=== PATIENT | female | born 1985 | race Two or more races ===

== ENCOUNTER 2025-03-04 21:15 | Inpatient (IN) | payer MEDICAID, OTHER ==
[~2025-03-04] VITALS: Ht 157.5 cm; Wt 79.3 kg
[2025-03-04 22:34] LABS: Hematocrit 26.0 % (36.0-46.0); Hemoglobin 8.5 g/dL (12.2-16.2); Mean Corpuscular Hemoglobin 29.2 pg (28.0-32.0); Mean Corpuscular Volume 89.3 fL (80.0-100.0); Nucleated Red Blood Cells % 0.0 %
[2025-03-04 22:44] LABS: Alanine Aminotransferase 24 U/L (7-40); Albumin 3.8 g/dL (3.2-4.8); Alkaline Phosphatase 105 U/L (46-116); Anion Gap 15 (5-15); BUN/Creatinine Ratio 9.0 (10.0-20.0); Bilirubin, Total 9.6 mg/dL (0.2-1.0); Blood Urea Nitrogen 7 mg/dL (9-23); Calcium 8.8 mg/dL (8.7-10.4); Carbon Dioxide 18 mmol/L (20-31); Chloride 99 mmol/L (98-107); Glucose 97 mg/dL (74-106); Potassium 3.2 mmol/L (3.5-5.1); Sodium 132 mmol/L (136-145); Total Protein 9.0 g/dL (5.7-8.2)
--- NOTE | 2025-03-04 22:56 | DVH ---
CHEST RADIOGRAPH Indication: sob Technique: Single frontal view of the chest was obtained COMPARISON: None FINDINGS: Lungs and pleural spaces are clear. Cardiac silhouette is enlarged. Bones and soft tissues demonstrat e no significant abnormality. IMPRESSION: Markedly enlarged heart is without overt pulmonary edema.
--- NOTE | 2025-03-04 22:58 | ED.PDOC ---
SOB-HPI HPI Comments HPI: Poor Historian. 39-year-old female recently moved to this area presents to emergency department for at least one-week history of exertional dyspnea. Patient was evaluated proximally 1-2 weeks ago at [facility] for the same thing and she was discharged home in the ER. Patient was discharged home with iron pills for ane emerson and water pills. Patient states compliance with her medications however she still feels short of breath with minimal exertion. Denies any pain or fever or nausea or vomiting. Denies bleeding from anywhere. Past Medical History: Anemia, alcohol abuse, asthma Past Surgical History: Denies any REVIEW OF SYSTEMS: CONSTITUTIONAL: Denies acute: fever, diaphoresis, chills, HEAD: Denies acute: headache, photophobia Eyes: Denies acute: Double vision, vision loss, eye pain, eye discharge. EARS: Denies acute: tinnitus, hearing loss, ear discharge, ear pain, THROAT: Denies acute: sore throat, swelling, difficulty swallowing , pain with swallowing, change in voice. NECK: Denies acute: neck pain, neck swelling, stiff neck. HEART: Denies acute : chest pain, palpitations, LUNGS: Denies acute: wheezing, cough, hemoptysis ABDOMEN: Denies acute: abdominal pain, Nausea, Vomiting, diarrhea, melena , hematemesis, hematochezia SKIN: Denies acute: rash, redness, lesions, itchiness. EXTREMITIES: Denies acute: calf pain, numbness, tingling, weakness, denies pain in extremity. Denies acute: Low back pain. Neuro: Denies acute: focal neurological deficit, motor or sensory focal neurological deficit, tremors, seizure like activity, confusion, dizziness, change in mental status, loss of bowel or bladder function, cauda equina like symptoms. : Denies acute: dysuria, hematuria, flank pain, increase in urinary frequency. PSYCH: Denies acute: hallucination, suicidal ideation, homicidal ideation. FEMALE: Denies acute: abnormal vaginal bleeding, foul odor, unusual discharge. PHYSICAL EXAM: General: ----[id number]----acute distress, awake and alert. Head: normocephalic, atraumatic. Neck: supple, trachea is midline, no swelling. Throat: Normal phonation. Eyes:, no erythema, no purulent discharge, no proptosis, noted icterus Heart: regular rate, regular rhythm, no significant murmur appreciated. Lungs: no apparent respiratory distress, Able to speak in full sentences. No wheezing, no rhonchi, no crackles. No stridors Clear to auscultation bilaterally. Abdomen: non tender to palpation, non distended, soft, no guarding, no rebound, + bowel sounds. Neuro: Awake, Alert, oriented to name, self, situation, follows commands GCS=15. Speech is normal. Skin: no petechia, no purpura, no cyanosis, slightly-pale, Lower extremities: --trace bilateral - Pitting edema no deformity, no focal swelling, no calf TTP. Makes eye contact. moves all four extremities. Face: no apparent facial droop. Ambulating in the ED independently. ED COURSE: DISCLAIMER: This medical document was created using an electronic medical record system with voice recognition software and computerized dictation system. Although this document has been carefully reviewed, there might still be some phonetic and typographical errors. Occasional wrong-word or "sound-alike" substitutions may have occurred due to the inherent limitations of voice recognition software. These areas are purely typographical due to imperfections of the software programs and do not reflect any compromise in the patient's medical care. Please read the chart carefully and recognize, using context, where these substitutions have occurred. Chief Complaint: Shortness of Breath Time Seen by MD: 21:44 Reviewed notes: Allergies Information Source: Patient Mode of Arrival: Ambulatory Was a procedure done? Was a procedure done?: No Differential Dx Differential Diagnosis: Other (DDx include ACS, unstable angina, anxiety, PE, pneumothroax, neoplasm, cardiac ischemia, COPD, asthma, CHF, pleural effusion, tobacco abuse, pneumonia, hypoxia, hypercapnia, anemia., infection/sepsis., pulmonary edema. Asthma, Cardiac tamponade, infection.) X-Ray, Labs, Meds, VS Vital Signs Date Time Temp Pulse Resp B/P (MAP) Pulse Ox O2 Delivery O2 Flow Rate FiO2 03/04/25 21:49 115 03/04/25 21:33 98.2 113 20 127/88 98 98.2 Lab Test 03/04/25 23:24 03/04/25 22:05 Range/Units Troponin I High Sensitivity 32 32 </=34 ng/L White Blood Count 4.4 4.4-10.8 10^3/uL Red Blood Count 2.91 L 4.0-5.20 10^6/uL Hemoglobin 8.5 L 12.2-16.2 g/dL Hematocrit 26.0 L 36.0-46.0 % Mean Corpuscular Volume 89.3 80.0-100.0 fL Mean Corpuscular Hemoglobin 29.2 28.0-32.0 pg Mean Corpuscular Hemoglobin Concent 32.7 32.0-36.0 g/dL Red Cell Distribution Width 24.8 H 11.8-14.3 % Platelet Count 76 L 140-450 10^3/uL Mean Platelet Volume 9.1 6.9-10.8 fL Neutrophils (%) (Auto) 80.1 H 37.0-80.0 % Lymphocytes (%) (Auto) 10.8 10.0-50.0 % Monocytes (%) (Auto) 7.8 0.0-12.0 % Eosinophils (%) (Auto) 0.1 0.0-7.0 % Basophils (%) (Auto) 1.2 0.0-2.0 % Neutrophils # (Auto) 3.5 1.6-8.6 10 ^3/uL Lymphocytes # (Auto) 0.5 0.4-5.4 10 ^3/uL Monocytes # (Auto) 0.3 0-1.3 10 ^3/uL Eosinophils # (Auto) 0 0-0.8 10 ^3/uL Basophils # (Auto) 0.1 0-0.2 10 ^3/uL Nucleated Red Blood Cells 0.0 % Platelet Estimate Decreased Large Platelets Few Anisocytosis (manual) Slight Sodium Level 132 L 136-145 mmol/L Potassium Level 3.2 L 3.5-5.1 mmol/L Chloride Level 99 98-107 mmol/L Carbon Dioxide Level 18 L 20-31 mmol/L Anion Gap 15 5-15 Blood Urea Nitrogen 7 L 9-23 mg/dL Creatinine 0.78 0.550-1.02 mg/dL Glomerular Filtration Rate Calc 100 >90 mL/min BUN/Creatinine Ratio 9.0 L 10.0-20.0 Serum Glucose 97 74-106 mg/dL Calcium Level 8.8 8.7-10.4 mg/dL Total Bilirubin 9.6 H 0.2-1.0 mg/dL Aspartate Amino Transferase (AST) 63 H 13-40 U/L Alanine Aminotransferase (ALT) 24 7-40 U/L Alkaline Phosphatase 105 46-116 U/L B-Type Natriuretic Peptide 657.16 0-100 pg/mL Total Protein 9.0 H 5.7-8.2 g/dL Albumin 3.8 3.2-4.8 g/dL Time of 1ST Reevaluation: 00:00 Reevaluation 1ST: N/A Patient Education/Counseling: Diagnosis, Treatment Family Education/Counseling: Other Comments MDM: patient presented with the above HPI.--respiratory distress----workup was initiated. patient was found with the above mentioned diagnosis. the following medications were ordered: please refer to order lists of meds and tests obtained by myself Dr. Novak. Patient ED course and VS have been stabilized. Patient has been reassessed in the ED and remained in a stable condition. Pertinent incidental findings were discussed with the patient and/or family. Patient/family voices understanding and is agreeable with plan. Patient has been observed in the ED adequate length of time to insure improvement/stability. Escalation of care considered: Consideration of escalation to observation or admission Patient was ADMITTED to the medicine team for further evaluation and treatment of their presentation. All the reports of any imaging studies that were ordered by myself were reviewed by myself. SEPSIS Sepsis Screen Date sepsis recognized/suspect: Mar 04, 2025 Time Sepsis recognized/suspect: 2138 Recent Procedure: No On Antibiotic Therapy: No Respiratory Rate >20: No Heart Rate >90: No Temp<36 C (96.8 F) or >38.3 C: No SBP <90 or MAP <65 mmHG: No New Acute Mental Status Change: No Is the patient on CPAP, BIPAP,: No Physician Orders Firepot Operator And Tender (03/04/25 ) Chest Portable (03/04/25 21:44) Electrocardigram (03/04/25 21:44) Vital Signs Date Time Temp Pulse Resp B/P (MAP) Pulse Ox O2 Delivery O2 Flow Rate FiO2 03/04/25 21:49 115 03/04/25 21:33 98.2 113 20 127/88 98 98.2 Laboratory Tests Test 03/04/25 22:05 White Blood Count 4.4 10^3/uL (4.4-10.8) Departure 1 Departure Time of Disposition: 22:56 Impression: Primary Impression: Exertional dyspnea Additional Impressions: Anemia Thrombocytopenia Hyperbilirubinemia Volume overload Acute respiratory distress Disposition: ADMITTED INPATIENT Admit to: Tele Condition: Guarded e-Prescriptions Lactulose (Lactulose) 10 Gm/15 Ml Peggy 10 GM PO DAILY for 30 Days, #450 ML Prov: TUCKER GROSS NP 03/14/25 Levofloxacin Hemihydrate (LEVAQUIN 500 MG) 500 Mg Tab 1 TAB PO DAILY for 7 Days, #7 TAB Prov: TUCKER GROSS NP 03/14/25 Ferrous Sulfate (Iron) 325 Mg Tab 325 MG PO BID for 30 Days, #60 TAB Prov: TUCKER GROSS NP 03/14/25 Spironolactone (Spironolactone) 25 Mg Tab 25 MG PO BID for 30 Days, #60 TAB 1 Refill Prov: TUCKER GROSS NP 03/14/25 Discharged With: Self Critical Care Note Critical Care Time?: Yes (45 min-critical care time only) Heart Score Heart Score: Heart Score Response (Comments) Value History N/A 0 EKG N/A 0 Age N/A 0 Risk Factors N/A 0 Troponin N/A 0 Total 0 CONY NOVAK DO Mar 04, 2025 22:58
[2025-03-04 23:54] LABS: Anisocytosis Slight
[2025-03-05] MEDS ORDERED: ONDANSETRON HCL 4 MG/2 ML VIAL IV PRN
--- NOTE | 2025-03-05 00:06 | DVHHP2 ---
History of Present Illness Reason for Visit: Shortness for breath History of Present Illness 39-year-old female presents for evaluation of shortness for breath. Patient endorses a one-week history of worsening shortness for breath with mild exertion. She also reports mild chest tightness. No fever or chills. She does report a history of liver disease secondary to alcohol abuse. Past Medical History Liver cirrhosis, asthma, anemia Past Surgical History Denies Family History Noncontributory Smoke: No ALCOHOL: none (Sober) Drugs: None Lives: with Family Review of Systems Review of Systems Review of systems are currently negative otherwise addressed in HPI. Exam Vital Signs Vital Signs Date Time Temp Pulse Resp B/P (MAP) Pulse Ox O2 Delivery O2 Flow Rate FiO2 03/04/25 21:49 115 03/04/25 21:33 98.2 20 127/88 98 98.2 Exam Gen: 39-year-old female in no apparent distress Skin: Warm, dry, jaundice, no rash. HEENT: Normocephalic atraumatic, mucous membranes moist and pink. Neck: Cervical and supraclavicular nodes normal without enlargement, trachea is midline, thyroid gland is normal without masses. Pulmonary: Clear to auscultation and percussion bilaterally. Cardiac: Regular rate and rhythm. No murmur Abdomen: Soft, nontender, nondistended, bowel sounds present all 4 quadrants, no guarding, no rigidity, no organomegaly. Extremities: No cyanosis, clubbing, no edema Neuro: Cranial nerves II through XII grossly intact, normal affect and speech, no focal motor deficits. Labs/Xrays ORDERING PHYSICIAN: CONY LANDA DO PROCEDURE(s): CXRP - CHEST PORTABLE REASON: sob ORDER NUMBER(s): [id number], ACCESSION NUMBER(s): [id number] CHEST RADIOGRAPH Indication: sob Technique: Single frontal view of the chest was obtained COMPARISON: None FINDINGS: Lungs and pleural spaces are clear. Cardiac silhouette is enlarged. Bones and soft tissues demonstrate no significant abnormality. IMPRESSION: Markedly enlarged heart is without overt pulmonary edema. Labs Test 03/04/25 23:24 03/04/25 22:05 Range/Units White Blood Count 4.4 4.4-10.8 10^3/uL Red Blood Count 2.91 L 4.0-5.20 10^6/uL Hemoglobin 8.5 L 12.2-16.2 g/dL Hematocrit 26.0 L 36.0-46.0 % Mean Corpuscular Volume 89.3 80.0-100.0 fL Mean Corpuscular Hemoglobin 29.2 28.0-32.0 pg Mean Corpuscular Hemoglobin Concent 32.7 32.0-36.0 g/dL Red Cell Distribution Width 24.8 H 11.8-14.3 % Platelet Count 76 L 140-450 10^3/uL Mean Platelet Volume 9.1 6.9-10.8 fL Neutrophils (%) (Auto) 80.1 H 37.0-80.0 % Lymphocytes (%) (Auto) 10.8 10.0-50.0 % Monocytes (%) (Auto) 7.8 0.0-12.0 % Eosinophils (%) (Auto) 0.1 0.0-7.0 % Basophils (%) (Auto) 1.2 0.0-2.0 % Neutrophils # (Auto) 3.5 1.6-8.6 10 ^3/uL Lymphocytes # (Auto) 0.5 0.4-5.4 10 ^3/uL Monocytes # (Auto) 0.3 0-1.3 10 ^3/uL Eosinophils # (Auto) 0 0-0.8 10 ^3/uL Basophils # (Auto) 0.1 0-0.2 10 ^3/uL Nucleated Red Blood Cells 0.0 % Platelet Estimate Decreased Large Platelets Few Anisocytosis (manual) Slight Sodium Level 132 L 136-145 mmol/L Potassium Level 3.2 L 3.5-5.1 mmol/L Chloride Level 99 98-107 mmol/L Carbon Dioxide Level 18 L 20-31 mmol/L Anion Gap 15 5-15 Blood Urea Nitrogen 7 L 9-23 mg/dL Creatinine 0.78 0.550-1.02 mg/dL Glomerular Filtration Rate Calc 100 >90 mL/min BUN/Creatinine Ratio 9.0 L 10.0-20.0 Serum Glucose 97 74-106 mg/dL Calcium Level 8.8 8.7-10.4 mg/dL Total Bilirubin 9.6 H 0.2-1.0 mg/dL Aspartate Amino Transferase (AST) 63 H 13-40 U/L Alanine Aminotransferase (ALT) 24 7-40 U/L Alkaline Phosphatase 105 46-116 U/L B-Type Natriuretic Peptide 657.16 0-100 pg/mL Total Protein 9.0 H 5.7-8.2 g/dL Albumin 3.8 3.2-4.8 g/dL SEPSIS Sepsis Screen Date sepsis recognized/suspect: Mar 04, 2025 Time Sepsis recognized/suspect: 2138 Recent Procedure: No On Antibiotic Therapy: No Respiratory Rate >20: No Heart Rate >90: No Temp<36 C (96.8 F) or >38.3 C: No SBP <90 or MAP <65 mmHG: No New Acute Mental Status Change: No Is the patient on CPAP, BIPAP,: No Physician Orders Wood Heel Back Liner (03/04/25 ) Chest Portable (03/04/25 21:44) Electrocardigram (03/04/25 21:44) Troponin-I Hs (03/04/25 22:44) Troponin-I Hs (03/05/25 00:44) Furosemide Injection (Lasix Injection) (03/04/25 23:00) Ammonia (03/04/25 23:57) Admit (03/04/25 23:57) Spironolactone (Aldactone) (03/05/25 10:00) Propranolol Hcl Tablet (Inderal Tablet) (03/05/25 10:00) Furosemide Tablet (Lasix Tablet) (03/05/25 10:00) Potassium Effervesent Tab (Klor-Con/Ef) (03/05/25 00:00) Iron Panel (03/04/25 23:59) Ondansetron Hcl (Zofran) (03/05/25 00:00) Complete Blood Count (03/05/25 04:00) Comprehensive Metabolic Panel (03/05/25 04:00) Echo 2d Mode Cardiac Dop (03/04/25 23:59) Condition: Stable (03/04/25 23:59) Bedrest With Bathroom Privileg (03/04/25 23:59) Tramadol Hcl (Ultram) (03/05/25 00:00) Vital Signs Date Time Temp Pulse Resp B/P (MAP) Pulse Ox O2 Delivery O2 Flow Rate FiO2 03/04/25 21:49 115 03/04/25 21:33 98.2 113 20 127/88 98 98.2 Laboratory Tests Test 03/04/25 22:05 White Blood Count 4.4 10^3/uL (4.4-10.8) Assessment/Plan Assessment/Plan Assessment Acute respiratory distress Possible heart failure Liver cirrhosis Pancytopenia secondary to the above Transaminitis Jaundice Hypokalemia Plan Admit the patient to Med surge to the hospitalist Resume home medications Echocardiogram pending Continue treatment per orders. Plan discussed with: Patient My Orders Orders - PLACIDO ROGERS Procedure Category Date Status Time Ammonia LAB 03/04/25 Logged 23:57 Admit ADMIT 03/04/25 Transmitted 23:57 Spironolactone PHA 03/05/25 Verified (Aldactone) 10:00 Propranolol Hcl PHA 03/05/25 Verified Tablet (Inderal 10:00 Furosemide Tablet PHA 03/05/25 Verified (Lasix Tablet) 10:00 Potassium Effervesent PHA 03/05/25 Verified Tab (Klor-Con/Ef) 00:00 Iron Panel LAB 03/04/25 Verified 23:59 Ondansetron Hcl PHA 03/05/25 Verified (Zofran) 00:00 Complete Blood Count LAB 03/05/25 Verified 04:00 Comprehensive LAB 03/05/25 Verified Metabolic Panel 04:00 Echo 2d Mode Cardiac US 03/04/25 Verified DOP 23:59 Condition: Stable PEDRO 03/04/25 Verified 23:59 Bedrest With Bathroom PEDRO 03/04/25 Verified Privileg 23:59 Tramadol Hcl (Ultram) PHA 03/05/25 Verified 00:00 Date of Service: Mar 04, 2025 Billing Provider: PLACIDO ROGERS Common Visit Codes: [id number] INP/OBS CARE (HIGH) PLACIDO ROGERS Mar 05, 2025 00:06
[2025-03-05 00:56] LABS: Iron 83.0 ug/dL (50-170)
[2025-03-05 00:59] LABS: Total Iron Binding Capacity 359.0 ug/dL (250-425)
[2025-03-05] MEDS: POTASSIUM EFFERVESENT TAB 25 MEQ PO ONE (03:47)
[2025-03-05] MEDS: FUROSEMIDE 100 MG/10ML VIAL IV ONE (03:48)
[2025-03-05 08:00] LABS: Nucleated Red Blood Cells % 0.1 %
[2025-03-05 08:10] LABS: Hematocrit 25.5 % (36.0-46.0); Hemoglobin 8.5 g/dL (12.2-16.2); Mean Corpuscular Hemoglobin 29.7 pg (28.0-32.0); Mean Corpuscular Volume 89.5 fL (80.0-100.0)
[2025-03-05 08:25] LABS: Alanine Aminotransferase 21 U/L (7-40); Alkaline Phosphatase 100 U/L (46-116); Anion Gap 13 (5-15); Blood Urea Nitrogen 9 mg/dL (9-23); Carbon Dioxide 20 mmol/L (20-31); Chloride 100 mmol/L (98-107); Glucose 96 mg/dL (74-106); Potassium 3.9 mmol/L (3.5-5.1)
[2025-03-05 08:26] LABS: Albumin 3.7 g/dL (3.2-4.8)
[2025-03-05 08:28] LABS: Bilirubin, Total 11.2 mg/dL (0.2-1.0); Calcium 8.6 mg/dL (8.7-10.4); Sodium 133 mmol/L (136-145)
[2025-03-05 08:32] LABS: BUN/Creatinine Ratio 11.8 (10.0-20.0)
[2025-03-05 08:35] LABS: Total Protein 8.7 g/dL (5.7-8.2)
[2025-03-05] MEDS: SPIRONOLACTONE 25 MG TAB PO SCH (10:18)
[2025-03-05] MEDS: FUROSEMIDE 40 MG TAB PO SCH (10:18)
[2025-03-05] MEDS: PROPRANOLOL HCL 20 MG TAB PO SCH (10:19)
[2025-03-05 13:00] VITALS: BP 109/72; PULSE 83; RESP 16; TEMP 97.6; O2SAT 90
--- NOTE | 2025-03-05 14:08 | DVHPN2 ---
Subjective Patient denies any symptoms Reviewed: Care Plan, H&P, Labs, Medications, Previous Orders, Radiology Changes from previous H/P or p: No Changes General: Per HPI Objective Vitals Vital Signs Date Time Temp Pulse Resp B/P (MAP) Pulse Ox O2 Delivery O2 Flow Rate FiO2 03/05/25 12:49 98.1 79 16 106/71 (83) 99 98.1 03/05/25 10:08 Room Air General Appearance: Alert, Oriented X3, Cooperative, No acute distress HEENT: Atraumatic, PERRLA Lungs: Clear to auscultation, Normal air movement Cardiovascular: Normal S1, Normal S2 Abdomen: Normal bowel sounds, Soft, No tenderness Musculoskeletal: Normal sensory function, Normal motor function Neuro: Normal gait, Normal speech Skin: Dry, Intact Psych/Mental Status: Mental status NL, Mood NL Medications Current Medications Medications Dose Ordered Sig/Hugh Route Start Time Stop Time Status Last Admin Dose Admin Spironolactone 25 mg DAILY PO 03/05/25 10:00 03/05/25 10:18 25 MG Propranolol HCl 10 mg BID PO 03/05/25 10:00 03/05/25 10:19 10 MG Furosemide 40 mg DAILY PO 03/05/25 10:00 03/05/25 10:18 40 MG Tramadol HCl 50 mg Q6HP PRN PO 03/05/25 00:00 03/05/25 03:48 50 MG Ondansetron HCl 4 mg Q4HPRN PRN IV 03/05/25 11:15 Laboratory Results Laboratory Tests 03/05/25 07:24 Chemistry Test 03/04/25 22:05 03/05/25 07:24 Albumin 3.8 g/dL (3.2-4.8) 3.7 g/dL (3.2-4.8) Calcium Level 8.8 mg/dL (8.7-10.4) 8.6 mg/dL (8.7-10.4) L Total Protein 9.0 g/dL (5.7-8.2) H 8.7 g/dL (5.7-8.2) H Cardiac Markers Test 03/04/25 22:05 B-Type Natriuretic Peptide 657.16 pg/mL (0-100) LFT Test 03/04/25 22:05 03/05/25 07:24 Alanine Aminotransferase (ALT) 24 U/L (7-40) 21 U/L (7-40) Alkaline Phosphatase 105 U/L (46-116) 100 U/L (46-116) Aspartate Amino Transferase (AST) 63 U/L (13-40) H 61 U/L (13-40) H Total Bilirubin 9.6 mg/dL (0.2-1.0) H 11.2 mg/dL (0.2-1.0) H Labs and/or images reviewed: Labs reviewed by me, Image(s) reviewed by me Assessment/Plan Assessment/Plan Impression: -cirrhosis of the liver -cardiomegaly -thrombocytopenia -acute respiratory failure -ruled out acute systolic heart failure -obesity Plan: -liver ultrasound -echocardiogram, pending -UDS -continue propranolol, spironolactone -repeat labs in a.m. Total time spent with patient discussing and formulating plan of care: 35 minutes. This medical document was created using an electronic medical record system with [employer] dictation system. Although this document has been carefully reviewed, there may still be some phonetic and typographical errors. These areas are purely typographical due to imperfections of the software programs, and do not reflect any compromise in the patient's medical care. Plan discussed with: Patient, Other (RN) My Orders Orders - TUCKER GROSS NP Procedure Category Date Status Time LIVER US 03/05/25 Verified 14:02 Comprehensive LAB 03/06/25 Verified Metabolic Panel 04:00 Complete Blood Count LAB 03/06/25 Verified 04:00 PTPTT LAB 03/06/25 Verified 04:00 Ammonia LAB 03/06/25 Verified 04:00 Drug Screen LAB 03/05/25 Verified 14:02 Date of Service: Mar 05, 2025 Billing Provider: TUCKER GROSS NP Common Visit Codes: [id number] INP/OBS CARE(HIGH) TUCKER GROSS NP Mar 05, 2025 14:08
--- NOTE | 2025-03-05 14:57 | DVHSR ---
APPROVED REPORT EXAM: Two-dimensional and M-mode echocardiogram with Doppler and color Doppler. Blood Pressure: 117/77 mmHg INDICATION EF RISK FACTORS Obesity: Height: 5'2", Weight: 218 DIMENSIONS LVDd4.1 (3.8-5.7cm)LA (2D)3.3 (1.9-4.0cm)Aortic Root3.0 (2.0-3.7cm) LVDs2.9 (2.5-4.0cm)LA (MM) (1.9-4.0cm)Aortic Cusp Exc1.9 (1.5-2.0cm) EF (%) 50.0 (55-70%)Rt. Atrium5.6 (1.9-4.0cm)Asc. Aorta cm IVSd1.1 (0.7-1.1cm)RV (D)5.0 (1.8-2.4cm) PWd1.2 (0.7-1.1cm) Mitral Valve MitralMitral Stenosis E wave0.57m/sMV Mean GR.mmHg A wave0.49m/sMV Peak GR.mmHg E/A ratio1.22D MVAcm2 DECEL [id number] 1/2 Timems Aortic Valve Aortic ValveAortic Stenosis V10.84m/Uyen Mean GR.3mmHg V21.27m/Uyen Peak GR.6mmHg LVOT Diameter2.0 (1.8-2.4cm)Doppler AVA2.08cm2 Pulmonic Valve V20.59m/s Tricuspid Valve TR Velocity1.93m/s [id number] Conclusion lvef 50% severe RV enlargrment and failure RA enlarged severe tricuspid regurg small periicardial effusion circumferential and posterior, no HD compromise
--- NOTE | 2025-03-05 15:55 | DVH ---
INDICATION: cirrhosis TECHNIQUE: Multiple real-time sonographic images were obtained of the right upper quadrant. COMPARISON: None FINDINGS: The liver demonstrates heterogeneous echotexture without focal mass lesions. The liver jerald ures 16.8 cm. There is no intrahepatic or extrahepatic ductal dilatation. The common duct measures 0.6 mm. The gallbladder wall measures 12.2mm and is thickened. The right kidney measures 13 cm. The right kidney is normal in contour, size, and shape. The echog enicity is normal. There is no hydronephrosis. The pancreas is not well visualized due to overlying bowel gas. IMPRESSION: Gallbladder wall thickening. Hepatic cirrhosis with recanalized umbilical vein. Portal vein appears to have hepatofugal flow.
[2025-03-05 16:11] VITALS: BP 103/78; PULSE 81; RESP 20; TEMP 97.1; O2SAT 95
[2025-03-05 17:00] VITALS: BP 97/68; PULSE 84; TEMP 97.6; O2SAT 86; O2SAT 91
[2025-03-05] MEDS ORDERED: FURO20TA3 PO (22:57)
--- NOTE | 2025-03-06 00:24 | ECG ---
[facility] Test Date: 2025-03-04 Test Time: 21:24:05 Pat Name: RADHA SOOD Department: ED Room: [address] [place] [address] Gender: F Communications Planner: : [id number] Requested By: CONY LANDA Order Number: [id number] Reading MD: Angel Wilkerson Measurements Intervals [place] Rate: 115 P: 82 ND: 114 QRS: 157 QRSD: 88 T: 108 QT: 364 QTc: 504 Interpretive Statements Sinus tachycardia Right axis deviation Low voltage, precordial leads Nonspecific T abnrm, anterolateral leads Borderline prolonged QT interval Electronically Signed On 03-12-2025 13:41:58 PDT by Angel Wilkerson Please click the below link to view image of tracing.
[2025-03-06 01:00] VITALS: BP 111/86; PULSE 84; RESP 20; TEMP 97.2; O2SAT 90
[2025-03-06 05:00] VITALS: BP 110/69; PULSE 83; RESP 20; TEMP 97.2; O2SAT 96
[2025-03-06 05:03] LABS: Hematocrit 25.7 % (36.0-46.0); Hemoglobin 8.4 g/dL (12.2-16.2); Mean Corpuscular Hemoglobin 29.6 pg (28.0-32.0); Mean Corpuscular Volume 90.2 fL (80.0-100.0); Nucleated Red Blood Cells % 0.1 %
[2025-03-06 05:15] LABS: INR 1.69 (0.9-1.15); Partial Thromboplastin Time 32.0 SEC (24.5-34.5); Prothrombin Time 17.0 sec (9.3-11.8)
[2025-03-06 05:39] LABS: Alanine Aminotransferase 37 U/L (7-40); Albumin 3.5 g/dL (3.2-4.8); Alkaline Phosphatase 88 U/L (46-116); Anion Gap 13 (5-15); Blood Urea Nitrogen 22 mg/dL (9-23); Carbon Dioxide 21 mmol/L (20-31); Glucose 100 mg/dL (74-106); Potassium 3.9 mmol/L (3.5-5.1)
[2025-03-06 05:45] LABS: Bilirubin, Total 14.2 mg/dL (0.2-1.0); Calcium 8.5 mg/dL (8.7-10.4); Chloride 97 mmol/L (98-107); Sodium 131 mmol/L (136-145)
[2025-03-06 06:02] LABS: BUN/Creatinine Ratio 14.8 (10.0-20.0)
[2025-03-06 06:04] LABS: Total Protein 8.4 g/dL (5.7-8.2)
[2025-03-06 09:00] VITALS: BP 106/76; PULSE 84; RESP 20; TEMP 97.4; O2SAT 95
[2025-03-06 13:00] VITALS: BP 95/71; PULSE 74; RESP 20; TEMP 98; O2SAT 94
--- NOTE | 2025-03-06 14:08 | DVHPN2 ---
Subjective Patient denies any symptoms Reviewed: Care Plan, H&P, Labs, Medications, Previous Orders, Radiology Changes from previous H/P or p: No Changes General: Per HPI Objective Vitals Vital Signs Date Time Temp Pulse Resp B/P (MAP) Pulse Ox O2 Delivery O2 Flow Rate FiO2 03/06/25 10:09 103/72 03/06/25 10:09 87 03/06/25 09:00 97.4 20 95 97.4 03/05/25 16:11 Room Air* 0 N/A Nasal Cannula* Intake/Output Intake and Output 03/06/25 07:00 Intake Total 440 ml Balance 440 ml Intake Oral 440 ml General Appearance: Alert, Oriented X3, Cooperative, No acute distress HEENT: Atraumatic, PERRLA Lungs: Clear to auscultation, Normal air movement Cardiovascular: Normal S1, Normal S2 Abdomen: Normal bowel sounds, Soft, No tenderness Musculoskeletal: Normal sensory function, Normal motor function Neuro: Normal gait, Normal speech Skin: Dry, Intact Psych/Mental Status: Mental status NL, Mood NL Medications Current Medications Medications Dose Ordered Sig/Hugh Route Start Time Stop Time Status Last Admin Dose Admin Spironolactone 25 mg DAILY PO 03/05/25 10:00 03/06/25 10:09 25 MG Propranolol HCl 10 mg BID PO 03/05/25 10:00 03/06/25 10:09 10 MG Furosemide 40 mg DAILY PO 03/05/25 10:00 03/06/25 10:09 40 MG Tramadol HCl 50 mg Q6HP PRN PO 03/05/25 00:00 03/06/25 01:43 50 MG Ondansetron HCl 4 mg Q4HPRN PRN IV 03/05/25 11:15 Laboratory Results Laboratory Tests 03/06/25 04:46 Chemistry Test 03/06/25 04:46 Albumin 3.5 g/dL (3.2-4.8) Calcium Level 8.5 mg/dL (8.7-10.4) L Total Protein 8.4 g/dL (5.7-8.2) H Coagulation Test 03/06/25 04:46 Prothrombin Time 17.0 sec (9.3-11.8) H Prothrombin Time INR 1.69 (0.9-1.15) H Activated Partial Thromboplast Time 32.0 SEC (24.5-34.5) LFT Test 03/06/25 04:46 Alanine Aminotransferase (ALT) 37 U/L (7-40) Alkaline Phosphatase 88 U/L (46-116) Aspartate Amino Transferase (AST) 129 U/L (13-40) H Total Bilirubin 14.2 mg/dL (0.2-1.0) H Labs and/or images reviewed: Labs reviewed by me, Image(s) reviewed by me Assessment/Plan Assessment/Plan Impression: -cirrhosis of the liver -cardiomegaly -thrombocytopenia -acute respiratory failure -ruled out acute systolic heart failure -obesity -portal hypertension -probable RV failure with severe tricuspid regurgitation Plan: Events: Patient continues to have generalized weakness and dyspnea with ambulation. Echocardiogram reviewed with dilated RV, questionable RV failure. Patient denies having a history of pulmonary hypertension or use of illicit drugs. Last alcohol intake was approximately one month ago -liver ultrasound: Noted ascites with portal hypertension -echocardiogram, results reviewed -UDS -continue propranolol, spironolactone, and IV Lasix -abdominal ultrasound for possible paracentesis -repeat labs in a.m. Total time spent with patient discussing and formulating plan of care: 35 minutes. This medical document was created using an electronic medical record system with [employer] dictation system. Although this document has been carefully reviewed, there may still be some phonetic and typographical errors. These areas are purely typographical due to imperfections of the software programs, and do not reflect any compromise in the patient's medical care. Plan discussed with: Patient, Other (RN) My Orders Orders - TUCKER GROSS NP Procedure Category Date Status Time * Authorization Manager CONS 03/05/25 Transmitted Consult 19:09 Hepatitis B Surface LAB 03/05/25 In Process Antigen 19:15 Hepatitis C Antibody LAB 03/05/25 In Process 19:15 * Authorization Manager CONS 03/06/25 Transmitted Consult Abdomen Limited US 03/06/25 Logged 14:01 Date of Service: Mar 06, 2025 Billing Provider: TUCKER GROSS NP Common Visit Codes: [id number] INP/OBS CARE(HIGH) TUCKER GROSS NP Mar 06, 2025 14:08
[2025-03-06] MEDS ORDERED: FUROSEMIDE 40 MG/4 ML VIAL IV ONE (14:15)
--- NOTE | 2025-03-06 14:50 | DVH ---
INDICATION: assess ascites for possible paracentesis TECHNIQUE: Multiple real-time sonographic images of the abdomen were obtained. COMPARISON: US LIVER on DOS: 03/05/25 FINDINGS: Trace ascites IMPRESSION: Trace ascites
[2025-03-06] MEDS: ONDANSETRON HCL 4 MG/2 ML VIAL IV PRN (15:46)
[2025-03-06 20:18] VITALS: RESP 18
[2025-03-06 21:00] VITALS: BP 101/73; PULSE 76; RESP 20; O2SAT 88
[2025-03-07] VITALS (23 sets, daily range): BP systolic 73–135; BP diastolic 28–78; PULSE 56–68; RESP 15–26; TEMP 93–98; O2SAT 0–97
[2025-03-07] MEDS: KETOROLAC TROMETH 30 MG/ML 1ML VIAL IV ONE (03:40)
[2025-03-07] MEDS: FUROSEMIDE 40 MG/4 ML VIAL IV SCH (09:44)
[2025-03-07 12:33] LABS: Hepatitis B Surface Antigen Negative (Negative); Hepatitis C Antibody Negative (Negative)
--- NOTE | 2025-03-07 14:36 | DVHPN2 ---
Subjective Patient now with acute abdominal pain, inability to urinate. Reviewed: Care Plan, H&P, Labs, Medications, Previous Orders, Radiology Changes from previous H/P or p: No Changes General: Per HPI Objective Vitals Vital Signs Date Time Temp Pulse Resp B/P (MAP) Pulse Ox O2 Delivery O2 Flow Rate FiO2 03/07/25 12:51 97.7 63 22 109/78 (88) 90 97.7 03/07/25 08:15 Nasal Cannula* 2 28 Intake/Output Intake and Output 03/07/25 07:00 Intake Total 1950 ml Output Total 0 ml Balance 1950 ml Intake Oral 1950 ml Output Urine Total 0 ml # Voids 3 General Appearance: Alert, Oriented X3, Cooperative, No acute distress HEENT: Atraumatic, PERRLA Lungs: Clear to auscultation, Normal air movement Cardiovascular: Normal S1, Normal S2 Abdomen: Normal bowel sounds, Soft, No tenderness Musculoskeletal: Normal sensory function, Normal motor function Neuro: Normal gait, Normal speech Skin: Dry, Intact Psych/Mental Status: Mental status NL, Mood NL Medications Current Medications Medications Dose Ordered Sig/Hugh Route Start Time Stop Time Status Last Admin Dose Admin Spironolactone 25 mg DAILY PO 03/05/25 10:00 03/07/25 09:45 25 MG Propranolol HCl 10 mg BID PO 03/05/25 10:00 03/07/25 09:46 10 MG Tramadol HCl 50 mg Q6HP PRN PO 03/05/25 00:00 03/07/25 13:25 50 MG Ondansetron HCl 4 mg Q4HPRN PRN IV 03/05/25 11:15 03/06/25 15:46 4 MG Furosemide 40 mg DAILY IV 03/07/25 10:00 03/07/25 09:44 40 MG Laboratory Results Laboratory Tests 03/06/25 04:46 Labs and/or images reviewed: Labs reviewed by me, Image(s) reviewed by me Assessment/Plan Assessment/Plan Impression: -cirrhosis of the liver -cardiomegaly -thrombocytopenia -acute respiratory failure -ruled out acute systolic heart failure -obesity -portal hypertension -probable RV failure with severe tricuspid regurgitation Plan: Events: Patient now complaining severe dyspnea, now on oxygen at 3 L/min with saturation noted to be 90%. Patient also reporting pelvic pain, epigastric pain. -repeat labs, including ESR, CRP, BNP -chest x-ray -ABG -consultations: Cardiology, Gastroenterology Total time spent with patient discussing and formulating plan of care: 35 minutes. This medical document was created using an electronic medical record system with [employer] dictation system. Although this document has been carefully reviewed, there may still be some phonetic and typographical errors. These areas are purely typographical due to imperfections of the software programs, and do not reflect any compromise in the patient's medical care. Plan discussed with: Patient, Other (RN) My Orders Orders - TUCKER GROSS NP Procedure Category Date Status Time Abg W/ Co-Ox RT 03/07/25 Logged 14:27 Comprehensive LAB 03/07/25 Logged Metabolic Panel 14:27 D-Dimer LAB 03/07/25 Logged 14:27 Chest Xray 1 View XY 03/07/25 Logged 14:27 Erythrocyte LAB 03/07/25 Logged Sedimentation Rate 14:27 C-Reactive Protein LAB 03/07/25 Logged 14:27 Complete Blood Count LAB 03/07/25 Logged 14:27 * [facility] Science And Operations Officer CONS 03/07/25 Transmitted 14:30 * Cardiology Consult CONS 03/07/25 Transmitted 14:30 Ceftriaxone Ivpb PHA 03/07/25 Transmitted Rocephin 14:45 B-Type Natriuretic LAB 03/07/25 Verified Peptide 14:33 Date of Service: Mar 07, 2025 Billing Provider: TUCKER GROSS NP Common Visit Codes: [id number] INP/OBS CARE(HIGH) TUCKER GROSS NP Mar 07, 2025 14:36
[2025-03-07 15:12] LABS: Base Excess -13.3 mmol/L (-2.0-3.0)
--- NOTE | 2025-03-07 15:30 | DVH ---
CHEST RADIOGRAPH Indication: shortness of breath Technique: Single frontal view of the chest was obtained Comparison: XY CHEST PORTABLE on DOS: 03/04/25 FINDINGS: Lines and Tubes: None Lungs: No focal consolidation. Pleura: No effusion. No pneumothorax. Cardiomediastinal contours: Cardiomegaly. Bones: No acute osseous abnormality. IMPRESSION: Cardiomegaly. No acute cardiopulmonary disease.
[2025-03-07] MEDS: SODIUM BICARB 8.4% 50Meq/50ml SYR Vial IV ONE (15:54)
[2025-03-07] MEDS: PANTOPRAZOLE 40 MG/10 ML VIAL INJ IV ONE (15:54)
[2025-03-07 16:01] LABS: Hematocrit 29.8 % (36.0-46.0); Hemoglobin 9.2 g/dL (12.2-16.2)
[2025-03-07 16:02] LABS: Mean Corpuscular Hemoglobin 30.1 pg (28.0-32.0); Mean Corpuscular Volume 97.0 fL (80.0-100.0); Nucleated Red Blood Cells % 0.5 %
[2025-03-07 16:14] LABS: Alkaline Phosphatase 96 U/L (46-116); Anion Gap 17 (5-15); Glucose 99 mg/dL (74-106)
[2025-03-07 16:15] LABS: Albumin 3.9 g/dL (3.2-4.8)
[2025-03-07 16:18] LABS: BUN/Creatinine Ratio 14.1 (10.0-20.0)
[2025-03-07 16:19] LABS: Alanine Aminotransferase 104 U/L (7-40); Bilirubin, Total 12.5 mg/dL (0.2-1.0); Blood Urea Nitrogen 49 mg/dL (9-23); Calcium 8.2 mg/dL (8.7-10.4); Carbon Dioxide 15 mmol/L (20-31); Chloride 90 mmol/L (98-107); Sodium 122 mmol/L (136-145); Total Protein 9.2 g/dL (5.7-8.2)
[2025-03-07 16:25] LABS: Potassium 5.8 mmol/L (3.5-5.1)
--- NOTE | 2025-03-07 16:42 | DVHINCON2 ---
Date Seen: Mar 07, 2025 Referring Physician Woody Maloney NP Reason for Consultation Dilated RV, TR, ? PH History of Present Illness Amada Aldridge is a 39-year-old female patient who presents to the ED with chief complaint of abdominal distention and leg swelling which started approximately one week before her admission associated with dyspnea, oppressive epigastric pain in Functional Class III worsened by exertion with fluctuating intensity and reduce urine output which started the day of her admission prompting visit to the ED. Patient reports history of alcoholic liver cirrhosis and history of congestive heart failure with an enlarged heart. Patient reports last episode of recurrence in drinking approximately one month ago. She also takes Tylenol twice a day due to abdominal pain. Denies fever, chills, sick contacts, nausea, vomiting, diarrhea and recent travel. 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 Ex ethanol abuse (one bottle of hard liquor a day) she quit one month ago. Denies current tobacco, alcohol and other drug abuse Allergies: Denies Home medication: Tylenol Patient seen and examined at bedside. She currently complains of dyspnea and inability to urinate. Patient was upgraded to ICU status due to metabolic acidosis probably secondary to sepsis, indicated Stokes catheter placement, requires bicarbonate drip and empiric IV antibiotics. Cardiology consulted for dilated RV. Past Medical History Per HPI Past Surgical History Per HPI Family History: Kidney stone G8 MOTHER Family History Per HPI Social History Per HPI Allergies: Coded Allergies: No Known Drug Allergy (Verified Allergy, Unknown, 03/05/25) Home Meds Reported Medications Furosemide (Furosemide) 20 Mg Tab, 20 MG PO, TAB 03/05/25 Current Medications Current Medications Medications (Trade) Dose Ordered Sig/Hugh Route PRN Reason Start Time Stop Time Status Last Admin Furosemide (Lasix Injection) 40 mg DAILY IV 03/07/25 10:00 03/07/25 16:35 DC 03/07/25 09:44 Ceftriaxone Sodium 50 ml @ 100 mls/hr DAILY IV 03/07/25 14:45 03/07/25 15:55 Sodium Bicarbonate 50 ml/ Sodium Chloride 1,050 ml @ 75 mls/hr Q14H IV 03/07/25 15:30 Pantoprazole Sodium (Protonix) 40 mg BID IV 03/08/25 10:00 Metronidazole 100 ml @ 100 mls/hr Q8HR IV 03/07/25 22:00 UNV Review of Systems Per HPI Vital Signs Vital Signs Date Time Temp Pulse Resp B/P (MAP) Pulse Ox O2 Delivery O2 Flow Rate FiO2 03/07/25 12:51 97.7 63 22 109/78 (88) 90 97.7 03/07/25 08:15 Nasal Cannula* 2 28 Physical Exam Patient lying in bed, in mild acute distress General: Lucid, afebrile, mucosae are moist, jaundice, conjunctivae are icteric Cardiovascular: Normal S1 and S2. Holosystolic murmur best heard in left lower parasternal border intensity 4/6 does not radiate towards axilla. No gallops or rubs Respiratory: Regular ventilation mechanics, tachypnea. Bibasilar rales, rest of auscultation is clear. Currently patient is on Oxymizer 10 L/min Abdomen: Soft but mildly distended, mild tenderness when palpating epigastrium rest of abdomen is nontender, no organomegaly, normal bowel sounds MSK/skin: Mobilizes 4 limbs. Skin is dry and warm. Bilateral lower limb pitting edema Neurological: Oriented in 3 spheres. No motor no sensitive deficits. Pupils are isocoric and reactive Labs/Diagnostic Data Labs Test 03/07/25 15:18 03/07/25 15:05 03/06/25 04:46 03/05/25 12:40 Range/Units White Blood Count 15.0 #H 4.4-10.8 10^3/uL Red Blood Count 3.07 L 4.0-5.20 10^6/uL Hemoglobin 9.2 L 12.2-16.2 g/dL Hematocrit 29.8 #L 36.0-46.0 % Mean Corpuscular Volume 97.0 # 80.0-100.0 fL Mean Corpuscular Hemoglobin 30.1 28.0-32.0 pg Mean Corpuscular Hemoglobin Concent 31.0 L 32.0-36.0 g/dL Red Cell Distribution Width 24.1 H 11.8-14.3 % Platelet Count 130 L 140-450 10^3/uL Mean Platelet Volume 10.7 6.9-10.8 fL Neutrophils (%) (Auto) 71.5 37.0-80.0 % Lymphocytes (%) (Auto) 18.6 10.0-50.0 % Monocytes (%) (Auto) 9.3 0.0-12.0 % Eosinophils (%) (Auto) 0.1 0.0-7.0 % Basophils (%) (Auto) 0.5 0.0-2.0 % Neutrophils # (Auto) 10.7 H 1.6-8.6 10 ^3/uL Lymphocytes # (Auto) 2.8 0.4-5.4 10 ^3/uL Monocytes # (Auto) 1.4 H 0-1.3 10 ^3/uL Eosinophils # (Auto) 0 0-0.8 10 ^3/uL Basophils # (Auto) 0.1 0-0.2 10 ^3/uL Nucleated Red Blood Cells 0.5 % D-Dimer, Quantitative 7.12 H 0.0-0.49 mg/L FEU Sodium Level 122 #L 136-145 mmol/L Potassium Level 5.8 *H 3.5-5.1 mmol/L Chloride Level 90 L 98-107 mmol/L Carbon Dioxide Level 15 L 20-31 mmol/L Anion Gap 17 H 5-15 Blood Urea Nitrogen 49 #H 9-23 mg/dL Creatinine 3.47 #H 0.550-1.02 mg/dL Glomerular Filtration Rate Calc 17 >90 mL/min BUN/Creatinine Ratio 14.1 10.0-20.0 Serum Glucose 99 74-106 mg/dL Calcium Level 8.2 L 8.7-10.4 mg/dL Total Bilirubin 12.5 H 0.2-1.0 mg/dL Aspartate Amino Transferase (AST) 309 H 13-40 U/L Alanine Aminotransferase (ALT) 104 H 7-40 U/L Alkaline Phosphatase 96 46-116 U/L C-Reactive Protein High Sensitivity 1.80 H <1.0 mg/dL B-Type Natriuretic Peptide 1061.65 0-100 pg/mL Total Protein 9.2 H 5.7-8.2 g/dL Albumin 3.9 3.2-4.8 g/dL Blood Gas Specimen Type Arterial Blood Gas Sample Site Right radial Blood Gas Patient Temperature 37.0 Arterial Blood Date Drawn [id number] Arterial Blood pH 7.258 L 7.350-7.450 Arterial Blood Partial Pressure CO2 28.6 L 32.0-45.0 mmHg Arterial Blood Partial Pressure O2 60.0 L 83.0-108.0 mmHg Arterial Blood HCO3 12.5 L 21.0-28.0 mmol/L Arterial Blood Oxygen Saturation 83.4 *L 94.0-98.0 % Arterial Blood Base Excess -13.3 L -2.0-3.0 mmol/L Arterial Blood Oxyhemoglobin 82.1 L 94.0-98.0 % Arterial Blood Carboxyhemoglobin 1.3 0.5-1.5 % Arterial Blood Methemoglobin 0.2 0.0-1.5 % Cheikh Test Modified Blood Gas Total Hemoglobin 10.50 L 12.0-16.0 g/dL Blood Gas Liter Flow 3.00 Blood Gas Modality Vent - ac FiO2 % 32.0 Blood Gas Critical Value Read Back yes Blood Gas Notified Whom loftsman devante Blood Gas Notified Time [id number] Blood Gas Notified By academic coordinator andre Prothrombin Time 17.0 H 9.3-11.8 sec Prothrombin Time INR 1.69 H 0.9-1.15 Activated Partial Thromboplast Time 32.0 24.5-34.5 SEC Ammonia < 10 L 11-32 umol/L POC Glucose 95 70-106 mg/dl Test 03/05/25 02:24 03/05/25 00:18 03/04/25 22:05 Range/Units Hepatitis B Surface Antigen Negative Negative Hepatitis C Antibody Negative Negative Iron Level 83 50-170 ug/dL Total Iron Binding Capacity 359 250-425 ug/dL Percent Iron Saturation 23.1 15-50 % Troponin I High Sensitivity 32 </=34 ng/L Platelet Estimate Decreased Large Platelets Few Anisocytosis (manual) Slight Assessment Acute hypoxic respiratory failure Acute on chronic diastolic congestive heart failure (HFpEF, LVEF 50%) Right ventricular heart failure Probable pulmonary hypertension Severe tricuspid regurgitation Small pericardial effusion Septic shock probably secondary to spontaneous bacterial peritonitis Decompensated alcoholic liver cirrhosis Hepatorenal syndrome AVA hemodynamically mediated (VMN) Portal hypertension Metabolic acidosis with increased anion gap probably secondary to hyperlacticacidemia Hyperkalemia Normocytic anemia Thrombocytopenia Rule out hypothyroidism Dyslipidemia Vitamin-D deficiency Obese Plan/Recommendation Patient completed echo which showed LVEF 50%, severe RV enlargement with failure, RA enlarged, severe tricuspid regurgitation small pericardial effusion circumferential and posterior with no hemodynamic compromise. Ordered EKG, troponins are negative x3 (32-32-32), BNP is elevated (above a 1000). Indicated IV diuretics with furosemide 40 mg b.i.d.. Recommend gentle diuresis due to right ventricular heart failure. Indicated Stokes catheter placement and strict I&Os. Patient could have probable pulmonary hypertension in the context of portal hypertension (group one). For correct diagnosis would have to complete right heart catheterization. Could be done once patient is stable or as outpatient. Ordered V/Q scan to rule out group for pulmonary hypertension. Can be postponed until patient is more stable. Patient currently on Oxymizer at 10 L/min. Patient currently in septic shock, probably secondary to spontaneous bacterial peritonitis in the context of decompensated liver cirrhosis with increased meld score and hepatorenal syndrome. (hypotension, tachypnea, leukocytosis and increased lactic acid), patient also has increased inflammatory markers. Patient is on phenylephrine. Ordered brown cultures (blood, urine and sputum). Patient has mild ascites, could not obtain paracentesis for ascitic fluid culture. GI specialist on board indicating steroids. Ordered UDS and alcohol levels. Ordered Tylenol (patient takes Tylenol everyday) Rest of management per primary team (IV antibiotics, IV vasopressors, bicarbonate drip and upgraded to ICU status) Goals of care discussed with patient for over 18 minutes: Full code status Discussed plan with Dr. Peres, patient and nurses: Currently in ICU status due to requirement of IV vasopressors and bicarbonate drip. Indicated IV diuretics 40 mg b.i.d., gentle diuresis due to RV failure. Strict I&Os. Ordered V/Q scan once patient is more stabilized. Patient has poor prognosis Plan discussed with: Patient, Other (Nurses) NYHA Physical activity limitations: Class4(Severe)discomfort Date of Service: Mar 07, 2025 Billing Provider: GABRIEL PERES Sr., MD Cardiology Common Codes: [id number] INP/OBS CARE (High) Cardiology Secondary Visit Cod: [id number] CARE PLAN 30 MINUTES AVIVA XAVIER RESIDENT Mar 07, 2025 16:42
[2025-03-07] MEDS: SODIUM BICARB 50mEq/50ml Vial 50 ML in SOD CHL 0.45% 1,000 ML IV SCH (17:44)
[2025-03-07 17:54] LABS: Ferritin 137.2 ng/mL (10-291)
--- NOTE | 2025-03-07 17:57 | DVH ---
Bilateral lower extremity venous duplex Clinical History: rule out PE Comparison: None Technique: Duplex Doppler evaluation of the deep venous systems of both lower extremities from the common femora l veins to the popliteal veins including color Doppler and spectral/pulsed waveform analysis was perf ormed. Findings: RIGHT SIDE: The common femoral vein demonstrates appropriate compressibility and waveform variability. There is compressibility/patency of the great saphenous vein at the proximal thigh. The femoral vein demonstrates appropriate compressibility and waveform variability. The deep femoral vein demonstrates appropriate compressibility and waveform variability. The popliteal vein demonstrates appropriate compressibility and waveform variability. There is normal compressibility at the tibioperoneal trunk. LEFT SIDE: The common femoral vein demonstrates appropriate compressibility and waveform variability. There is compressibility/patency of the great saphenous vein at the proximal thigh. The femoral vein demonstrates appropriate compressibility and waveform variability. The deep femoral vein demonstrates appropriate compressibility and waveform variability. The popliteal vein demonstrates appropriate compressibility and waveform variability. There is normal compressibility at the tibioperoneal trunk. Impression: 1. No right or left femoropopliteal venous thrombosis.
[2025-03-07 17:58] LABS: Thyroid Stimulating Hormone 9.92 uIU/mL (0.55-4.78)
[2025-03-07 18:00] LABS: Beta HCG, Quantitative 0.1 mIU/mL (1.5-4.2)
[2025-03-07 18:07] LABS: Magnesium 1.9 mg/dL (1.6-2.6)
[2025-03-07 18:16] LABS: Lactic Acid w/Reflex 4.4 mmol/L (0.4-2.0)
--- NOTE | 2025-03-07 18:16 | DVH ---
CLINICAL HISTORY: acute abdominal pain, SBP TECHNIQUE: CT of the abdomen and pelvis was performed without intravenous contrast. This exam was per formed according to our departmental dose optimization program. Up-to-date CT equipment and radiation dose reduction techniques are utilized as appropriate. 18.38 CTDI: 18.38 DLP: 976.27 WID: COMPARISON: None FINDINGS: Lower Thorax: There is moderate cardiomegaly and small pericardial effusion. Small right pleural effu davey. Trace left pleural effusion. Linear bibasilar scarring or atelectasis. Liver and Biliary system: Normal-sized liver. Nodular contour of the liver. There is a tiny hypoden sity in segment 2 of the liver on series 2, image 19, not optimally evaluated without contrast. Sloan systemic collateral vessels are seen. Mild dilatation of the gallbladder without definite wall thicke wallace. Cholelithiasis. There is no biliary ductal dilatation. Spleen: Mild splenomegaly. Adrenal Glands and Kidneys: Grossly normal adrenal glands. No hydronephrosis or nephrolithiasis. Pancreas and Retroperitoneum: Grossly normal pancreas. Retroperitoneal edema. Mildly prominent retrop eritoneal lymph nodes. Aorta and Major Vessels: Aortoiliac vessels are normal in caliber with trace calcified atheroscleroti c plaque. Bowel, Mesentery and Peritoneal space: Normal caliber small and large bowel normal appendix. There is mesenteric venous congestion and mild ascites. No free air or fluid collection. Pelvis: Urinary bladder is mildly distended. Uterus and ovaries grossly unremarkable. No pelvic lymph adenopathy. Abdominal wall and Osseous Structures: There is body wall edema. No destructive osseous lesion. IMPRESSION: 1. CHF/volume overload, with moderate cardiomegaly, small pericardial effusion, trace left pleural ef fusion, mesenteric venous congestion, mild ascites, and body wall edema. 2. Nodular contour of the liver which could be fibrosis or cirrhosis. Correlate with liver enzymes a nd clinical history. 3. Portosystemic collateral vessels, mild splenomegaly, and mild ascites, which could be stigmata of portal hypertension. 4. Cholelithiasis.
[2025-03-07 18:19] LABS: Cholesterol 320 mg/dL (< 200); HDL Cholesterol 60 mg/dL (40-59); Triglycerides 134 mg/dL (< 150)
[2025-03-07] MEDS: ALBUTEROL SULF 2.5 MG/0.5ML(0.5%) NEB SOLN NEB ONE (18:21)
[2025-03-07] MEDS: InsuLIN REG 1unit/0.01ml Soln (100units/ml) IV ONE (18:28)
[2025-03-07] MEDS: CALCIUM GLUC 1,000mg/50ml-NS 50 ML IV ONE (18:29)
[2025-03-07] MEDS: DEXTROSE (50%) 50ML SYRG IV ONE (18:29)
[2025-03-07] MEDS: SODIUM ZIRCONIUM CYCL 10 GM PAK PO ONE (18:39)
--- NOTE | 2025-03-07 18:54 | DVHCONRES ---
Date Seen: Mar 07, 2025 Resident Creating Document: JHAJJ,SARLUHET RESIDENT Referring Physician Haider Reason for Consultation Cirrhosis, acute epigastric pain History of Present Illness Patient is a 39-year-old female with medical history of liver cirrhosis, asthma presented to the hospital with shortness of the breath, 1 week history of worsening shortness of breath and chest tightness. GI were consulted as the patient has a history of liver cirrhosis secondary to alcohol abuse. Patient reports last alcoholic drink about a month ago. Patient denied any history of blood in vomitus, dark stools, blood in the stools. Does not report to have endoscopy or colonoscopy before. While in the hospital patient has a echocardiogram which showed LVEF 50% with severe RV enlargement and failure. Past Medical History Liver cirrhosis Past Surgical History None reported Family History: Kidney stone G8 MOTHER Social History Currently denies any smoking, alcohol, drug use Reported drinking 1 bottle of hard liquor every day for 10 years and quit alcohol use 1 month ago Allergies: Coded Allergies: No Known Drug Allergy (Verified Allergy, Unknown, 03/05/25) Home Meds Reported Medications Furosemide (Furosemide) 20 Mg Tab, 20 MG PO, TAB 03/05/25 Current Medications Current Medications Medications (Trade) Dose Ordered Sig/Hugh Route PRN Reason Start Time Stop Time Status Last Admin Furosemide (Lasix Injection) 40 mg DAILY IV 03/07/25 10:00 03/07/25 16:35 DC 03/07/25 09:44 Ceftriaxone Sodium 50 ml @ 100 mls/hr DAILY IV 03/07/25 14:45 03/07/25 15:55 Sodium Bicarbonate 50 ml/ Sodium Chloride 1,050 ml @ 75 mls/hr Q14H IV 03/07/25 15:30 03/07/25 17:44 Pantoprazole Sodium (Protonix) 40 mg BID IV 03/08/25 10:00 Metronidazole 100 ml @ 100 mls/hr Q8HR IV 03/07/25 22:00 Review of Systems Patient seen and examined at the bedside Has a respiratory distress currently on 4 L oxygen via nasal cannula and is not able to talk in full sentences Reports mild epigastric pain Mild acidity, heartburn, reflux symptoms Vital Signs Vital Signs Date Time Temp Pulse Resp B/P (MAP) Pulse Ox O2 Delivery O2 Flow Rate FiO2 03/07/25 18:31 57 24 97 03/07/25 18:21 Oxymizer 10 N/A 03/07/25 17:07 97.8 135/77 (96) 97.8 Physical Exam Gen - no pallor, scleral icterus present Skin - Patients skin is warm and dry. HEENT - normocephalic, atraumatic, dry mucous membranes. Neck - supple, no lymphadenopathy Pulmonary - B/L equal air entry with diminished breath sounds cardiovascular - regular S1,S2 heard GI - abdomen distended, nontender. Bowel sounds normoactive. Neurological - Patient is alert and oriented x4. No motor or sensory weakness Labs/Diagnostic Data Labs Test 03/07/25 17:34 03/07/25 15:18 03/07/25 15:05 03/06/25 04:46 Range/Units Lactic Acid Level 4.4 *H 0.4-2.0 mmol/L Ammonia < 10 L 11-32 umol/L White Blood Count 15.0 #H 4.4-10.8 10^3/uL Red Blood Count 3.07 L 4.0-5.20 10^6/uL Hemoglobin 9.2 L 12.2-16.2 g/dL Hematocrit 29.8 #L 36.0-46.0 % Mean Corpuscular Volume 97.0 # 80.0-100.0 fL Mean Corpuscular Hemoglobin 30.1 28.0-32.0 pg Mean Corpuscular Hemoglobin Concent 31.0 L 32.0-36.0 g/dL Red Cell Distribution Width 24.1 H 11.8-14.3 % Platelet Count 130 L 140-450 10^3/uL Mean Platelet Volume 10.7 6.9-10.8 fL Neutrophils (%) (Auto) 71.5 37.0-80.0 % Lymphocytes (%) (Auto) 18.6 10.0-50.0 % Monocytes (%) (Auto) 9.3 0.0-12.0 % Eosinophils (%) (Auto) 0.1 0.0-7.0 % Basophils (%) (Auto) 0.5 0.0-2.0 % Neutrophils # (Auto) 10.7 H 1.6-8.6 10 ^3/uL Lymphocytes # (Auto) 2.8 0.4-5.4 10 ^3/uL Monocytes # (Auto) 1.4 H 0-1.3 10 ^3/uL Eosinophils # (Auto) 0 0-0.8 10 ^3/uL Basophils # (Auto) 0.1 0-0.2 10 ^3/uL Nucleated Red Blood Cells 0.5 % Erythrocyte Sedimentation Rate 99 H 0-20 mm/hr D-Dimer, Quantitative 7.12 H 0.0-0.49 mg/L FEU Sodium Level 122 #L 136-145 mmol/L Potassium Level 5.8 *H 3.5-5.1 mmol/L Chloride Level 90 L 98-107 mmol/L Carbon Dioxide Level 15 L 20-31 mmol/L Anion Gap 17 H 5-15 Blood Urea Nitrogen 49 #H 9-23 mg/dL Creatinine 3.47 #H 0.550-1.02 mg/dL Glomerular Filtration Rate Calc 17 >90 mL/min BUN/Creatinine Ratio 14.1 10.0-20.0 Serum Glucose 99 74-106 mg/dL Calcium Level 8.2 L 8.7-10.4 mg/dL Phosphorus Level 9.1 H 2.4-5.1 mg/dL Magnesium Level 1.9 1.6-2.6 mg/dL Total Bilirubin 12.5 H 0.2-1.0 mg/dL Aspartate Amino Transferase (AST) 309 H 13-40 U/L Alanine Aminotransferase (ALT) 104 H 7-40 U/L Alkaline Phosphatase 96 46-116 U/L C-Reactive Protein High Sensitivity 1.80 H <1.0 mg/dL B-Type Natriuretic Peptide 1061.65 0-100 pg/mL Total Protein 9.2 H 5.7-8.2 g/dL Albumin 3.9 3.2-4.8 g/dL Triglycerides Level 134 < 150 mg/dL Cholesterol Level 320 H < 200 mg/dL LDL Cholesterol 135 H < 100 mg/dL HDL Cholesterol 60 H 40-59 mg/dL Vitamin D 25-Hydroxy 12.2 L 30.0-100 ng/mL Thyroid Stimulating Hormone (TSH) 9.92 H 0.55-4.78 uIU/mL Beta HCG, Quantitative 0.1 L 1.5-4.2 mIU/mL Plasma/Serum Blood Alcohol < 3.0 <10 mg/dL Blood Gas Specimen Type Arterial Blood Gas Sample Site Right radial Blood Gas Patient Temperature 37.0 Arterial Blood Date Drawn Arterial Blood pH 7.258 L 7.350-7.450 Arterial Blood Partial Pressure CO2 28.6 L 32.0-45.0 mmHg Arterial Blood Partial Pressure O2 60.0 L 83.0-108.0 mmHg Arterial Blood HCO3 12.5 L 21.0-28.0 mmol/L Arterial Blood Oxygen Saturation 83.4 *L 94.0-98.0 % Arterial Blood Base Excess -13.3 L -2.0-3.0 mmol/L Arterial Blood Oxyhemoglobin 82.1 L 94.0-98.0 % Arterial Blood Carboxyhemoglobin 1.3 0.5-1.5 % Arterial Blood Methemoglobin 0.2 0.0-1.5 % Cheikh Test Modified Blood Gas Total Hemoglobin 10.50 L 12.0-16.0 g/dL Blood Gas Liter Flow 3.00 Blood Gas Modality Vent - ac FiO2 % 32.0 Blood Gas Critical Value Read Back yes Blood Gas Notified Whom sueding machine tender devante Blood Gas Notified Time [id number] Blood Gas Notified By pipe inspector andre Prothrombin Time 17.0 H 9.3-11.8 sec Prothrombin Time INR 1.69 H 0.9-1.15 Activated Partial Thromboplast Time 32.0 24.5-34.5 SEC Test 03/05/25 12:40 03/05/25 02:24 03/05/25 00:18 03/04/25 22:05 Range/Units POC Glucose 95 70-106 mg/dl Hepatitis B Surface Antigen Negative Negative Hepatitis C Antibody Negative Negative Iron Level 83 50-170 ug/dL Total Iron Binding Capacity 359 250-425 ug/dL Percent Iron Saturation 23.1 15-50 % Troponin I High Sensitivity 32 </=34 ng/L Platelet Estimate Decreased Large Platelets Few Anisocytosis (manual) Slight Assessment Assessment Liver cirrhosis likely alcoholic, meld Na 36 Possible acute cholecystitis Alcoholic liver disease, MDF 41 Acute hypoxic respiratory failure Right heart failure Pericardial effusion Plan - given high MDF, patient will benefit from steroid with prednisolone 40 mg daily - Protonix 40 mg daily IV - elevated MELD Na, 90 day mortality 65% - monitor liver functions Rest of the management as per primary team Plan discussed with Dr. Pathak Plan discussed with: Patient, Other (ALEJO Mathis) FAY FELIZ RESIDENT Mar 07, 2025 18:54
[2025-03-07] MEDS: PHENYLEPHRINE IV 250 ML IV ONE (21:04)
[2025-03-07] MEDS: PHENYLEPHRINE IV 250 ML IV SCH (21:11)
[2025-03-07] MEDS: ALBUMIN 5% 250 ML IV ONE (21:11)
[2025-03-07] MEDS: FUROSEMIDE 40 MG/4 ML VIAL IV ONE (21:15)
--- NOTE | 2025-03-07 22:29 | ECG ---
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
[2025-03-07 22:55] LABS: Potassium 4.9 mmol/L (3.5-5.1)
[2025-03-07 22:56] LABS: Anion Gap 16 (5-15)
[2025-03-07 23:01] LABS: Glucose 78 mg/dL (74-106)
[2025-03-07 23:06] LABS: Free T4 (Free Thyroxine) 0.92 ng/dL (0.89-1.76)
[2025-03-07 23:11] LABS: Blood Urea Nitrogen 46 mg/dL (9-23); Calcium 8.4 mg/dL (8.7-10.4); Carbon Dioxide 17 mmol/L (20-31); Chloride 90 mmol/L (98-107); Sodium 123 mmol/L (136-145)
[2025-03-07 23:29] LABS: BUN/Creatinine Ratio 13.1 (10.0-20.0)
[2025-03-07] MEDS: NOREPINEPHRINE 8 MG/250ML KIT 250 ML IV ONE (23:41)
[2025-03-07] MEDS: NOREPINEPHRINE 8 MG/250ML KIT 250 ML IV SCH (23:43)
[2025-03-07 23:53] LABS: Base Excess -11.7 mmol/L (-2.0-3.0)
[2025-03-08] VITALS (99 sets, daily range): BP systolic 42–156; BP diastolic 21–97; PULSE 58–86; RESP 12–28; TEMP 96.4–97.7; O2SAT 92–100
[2025-03-08 00:31] LABS: COVID19 ANTIGEN SOFIA FIA NEGATIVE (NEGATIVE)
[2025-03-08 03:58] LABS: Anion Gap 18 (5-15)
[2025-03-08 04:03] LABS: Glucose 75 mg/dL (74-106)
[2025-03-08 04:12] LABS: Blood Urea Nitrogen 45 mg/dL (9-23); Calcium 8.0 mg/dL (8.7-10.4); Carbon Dioxide 15 mmol/L (20-31); Chloride 90 mmol/L (98-107); Sodium 123 mmol/L (136-145)
[2025-03-08 04:13] LABS: Potassium 5.7 mmol/L (3.5-5.1)
[2025-03-08 04:35] LABS: BUN/Creatinine Ratio 12.2 (10.0-20.0)
[2025-03-08 04:53] LABS: Base Excess -11.6 mmol/L (-2.0-3.0)
[2025-03-08] MEDS: SODIUM BICARB 8.4% 50Meq/50ml SYR Vial IV ONE ×2 (05:13→08:47)
[2025-03-08] MEDS: SODIUM BICARB 50mEq/50ml Vial 50 ML in SOD CHL 0.45% 1,000 ML IV SCH (05:14)
[2025-03-08] MEDS: FUROSEMIDE 40 MG/4 ML VIAL IV SCH (05:55)
--- NOTE | 2025-03-08 06:01 | DVH ---
CHEST RADIOGRAPH Indication: INCREASING OXYGEN DEMAND Technique: Single frontal view of the chest was obtained Comparison: XY CHEST XRAY 1 VIEW on DOS: 03/07/25 FINDINGS: Lines and Tubes: None Lungs: No focal consolidation. Pleura: No effusion. No pneumothorax. Cardiomediastinal contours: Stable cardiomegaly. Bones: No acute osseous abnormality. IMPRESSION: 1. No acute pulmonary disease. 2. Stable cardiomegaly.
--- NOTE | 2025-03-08 07:19 | ECG ---
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
--- NOTE | 2025-03-08 08:29 | DVHPN2 ---
Subjective Patient now with acute abdominal pain, inability to urinate. Reviewed: Care Plan, H&P, Labs, Medications, Previous Orders, Radiology Changes from previous H/P or p: No Changes General: Per HPI Objective Vitals Vital Signs Date Time Temp Pulse Resp B/P (MAP) Pulse Ox O2 Delivery O2 Flow Rate FiO2 03/08/25 07:48 111/59 03/08/25 06:45 96.6 69 15 99 205.9 03/08/25 06:00 Oxymizer 15 N/A Intake/Output Intake and Output 03/08/25 07:00 Intake Total 3576.25 ml Output Total 40 ml Balance 3536.25 ml Intake Oral 800 ml IV Total 2776.25 ml Output Urine Total 40 ml Stool Total 0 ml # Bowel Movements 1 General Appearance: Alert, Oriented X3, Cooperative, No acute distress HEENT: Atraumatic, PERRLA Lungs: Clear to auscultation, Normal air movement Cardiovascular: Normal S1, Normal S2 Abdomen: Normal bowel sounds, Soft, No tenderness Musculoskeletal: Normal sensory function, Normal motor function Neuro: Normal gait, Normal speech Skin: Dry, Intact Psych/Mental Status: Mental status NL, Mood NL Medications Current Medications Medications Dose Ordered Sig/Hugh Route Start Time Stop Time Status Last Admin Dose Admin Spironolactone 25 mg DAILY PO 03/05/25 10:00 03/07/25 09:45 25 MG Propranolol HCl 10 mg BID PO 03/05/25 10:00 03/07/25 09:46 10 MG Tramadol HCl 50 mg Q6HP PRN PO 03/05/25 00:00 03/07/25 13:25 50 MG Ondansetron HCl 4 mg Q4HPRN PRN IV 03/05/25 11:15 03/06/25 15:46 4 MG Ceftriaxone Sodium 50 ml @ 100 mls/hr DAILY IV 03/07/25 14:45 03/07/25 15:55 100 MLS/HR Metronidazole 100 ml @ 100 mls/hr Q8HR IV 03/07/25 22:00 03/08/25 05:14 100 MLS/HR Pantoprazole Sodium 40 mg DAILY IV 03/08/25 10:00 Prednisone 40 mg DAILY PO 03/08/25 10:00 Phenylephrine HCl 250 ml @ 30 mls/hr Q8H20M IV 03/07/25 20:30 03/08/25 06:04 123.75 MLS/HR Furosemide 40 mg BIDD IV 03/08/25 06:00 03/08/25 05:55 40 MG Norepinephrine Bitartrate 250 ml @ 3.75 mls/hr Q24H IV 03/07/25 23:30 03/08/25 07:48 33.75 MLS/HR Sodium Bicarbonate 50 ml/ Sodium Chloride 1,050 ml @ 100 mls/hr [id number] IV 03/08/25 05:00 03/08/25 05:14 100 MLS/HR Laboratory Results Laboratory Tests 03/08/25 02:59 Chemistry Test 03/07/25 15:18 03/07/25 22:05 03/08/25 02:59 Albumin 3.9 g/dL (3.2-4.8) Calcium Level 8.2 mg/dL (8.7-10.4) L 8.4 mg/dL (8.7-10.4) L 8.0 mg/dL (8.7-10.4) L Magnesium Level 1.9 mg/dL (1.6-2.6) Phosphorus Level 9.1 mg/dL (2.4-5.1) H Total Protein 9.2 g/dL (5.7-8.2) H Coagulation Test 03/07/25 15:18 D-Dimer, Quantitative 7.12 mg/L FEU (0.0-0.49) H Lipid panel Test 03/07/25 15:18 Cholesterol Level 320 mg/dL (< 200) H HDL Cholesterol 60 mg/dL (40-59) H Triglycerides Level 134 mg/dL (< 150) Cardiac Markers Test 03/07/25 15:18 B-Type Natriuretic Peptide 1061.65 pg/mL (0-100) LFT Test 03/07/25 15:18 Alanine Aminotransferase (ALT) 104 U/L (7-40) H Alkaline Phosphatase 96 U/L (46-116) Aspartate Amino Transferase (AST) 309 U/L (13-40) H Total Bilirubin 12.5 mg/dL (0.2-1.0) H HgA1c, TSH Test 03/07/25 15:18 Hemoglobin A1c < 3.8 % A1C (<5.7) Thyroid Stimulating Hormone (TSH) 9.92 uIU/mL (0.55-4.78) H Blood Gas Results Test 03/07/25 15:05 03/07/25 23:41 03/08/25 04:46 Arterial Blood pH 7.258 (7.350-7.450) 7.329 (7.350-7.450) 7.297 (7.350-7.450) FiO2 % 32.0 80.0 80.0 Labs and/or images reviewed: Labs reviewed by me, Image(s) reviewed by me Assessment/Plan Assessment/Plan Impression: -cirrhosis of the liver -cardiomegaly -thrombocytopenia -acute respiratory failure -ruled out acute systolic heart failure -obesity -portal hypertension -probable RV failure with severe tricuspid regurgitation -acute hypoxic respiratory failure Plan: Events: Patient with worsening status yesterday afternoon. Patient transferred to ICU. Noted to have severe metabolic acidosis. CT scan of abdomen and pelvis reviewed. Patient continues to be an uric. Stokes catheter placed with minimal urine output. Consultation was placed with Cardiology, Nephrology, Gastroenterology. Patient was started on IV antibiotic therapy to treat spontaneous bacterial peritonitis. V/Q scan pending. DVT study negative. Patient now in shock, requiring vasopressor support. Long discussion made with the patient's sister, Daisha, regarding declining status. Patient is currently awake and able to follow commands. High probability of requiring hemodialysis, mechanical ventilation, which was discussed with the patient and sister. Patient will also need central line. Persistent hyperkalemia this a.m. after given potassium lowering cocktail yesterday. Repeat sodium bicarbonate, calcium, D50 with insulin, and albuterol treatment. -continue vasopressor therapy with Dc-Synephrine and norepinephrine -PPI -continue antibiotic therapy with Flagyl and Rocephin -continue sodium bicarbonate infusion -serial BMP Critical care time spent with patient discussing and formulating plan of care: 90 minutes. This does not include time spent performing procedures. This medical document was created using an electronic medical record system with [employer] system. Although this document has been carefully reviewed, there may still be some phonetic and typographical errors. These areas are purely typographical due to imperfections of the software programs, and do not reflect any compromise in the patient's medical care. Plan discussed with: Patient, Other (RN) My Orders Orders - TUCKER GROSS NP Procedure Category Date Status Time Chest Xray 1 View XY 03/07/25 Resulted 14:27 * Gi Dvh Concrete Layer CONS 03/07/25 Transmitted 14:30 * Cardiology Consult CONS 03/07/25 Transmitted 14:30 Ceftriaxone 1gm/50ml PHA 03/07/25 In Process (Rocephin) 14:45 Abg W/ Co-Ox RT 03/07/25 Logged 15:08 Ct Ab Pel Wo Con-No CT 03/07/25 Resulted Oral Or Iv 15:17 Transfer Orders XFER 03/07/25 Transmitted 15:17 Metronidazole PHA 03/07/25 In Process 500mg/100ml (Flagyl 22:00 *Dr. Lofton Group CONS 03/07/25 Transmitted -[place] 16:32 Bilat Lower Dvt US 03/07/25 Resulted 16:53 Nm Vq Scan NM 03/07/25 Logged 16:53 Insert Stokes Catheter PEDRO 03/07/25 In Process 16:53 Mrsa Screen MICHELLE 03/07/25 In Process 18:50 Chest Portable XY 03/08/25 Resulted 04:00 Complete Blood Count LAB 03/08/25 Logged 04:00 Albuterol Medneb PHA 03/08/25 In Process (Ventolin Medneb) 08:00 Sodium Bicarb PHA 03/08/25 In Process 50meq/50ml Vial 08:00 Dextrose 50% Syringe PHA 03/08/25 In Process 08:00 Insulin R (Human) PHA 03/08/25 In Process (Insulin R) 08:00 Calcium Gluc PHA 03/08/25 Logged 1,000mg/50ml-Ns 08:00 Date of Service: Mar 08, 2025 Billing Provider: TUCKER GROSS NP Common Visit Codes: [id number] CARE 30-74 MIN, 25502-[id number] CARE-EACH +30MIN TUCKER GROSS NP Mar 08, 2025 08:29
[2025-03-08] MEDS: ALBUTEROL SULF 2.5 MG/0.5ML(0.5%) NEB SOLN NEB ONE (08:33)
[2025-03-08] MEDS: DEXTROSE (50%) 50ML SYRG IV ONE (08:36)
[2025-03-08] MEDS: CALCIUM GLUC 1,000mg/50ml-NS 50 ML IV ONE ×2 (08:36→20:50)
[2025-03-08] MEDS: InsuLIN REG 1unit/0.01ml Soln (100units/ml) IV ONE (08:39)
[2025-03-08 09:50] LABS: Urine Protein, UAD 3+ (Negative)
[2025-03-08] MEDS ORDERED: PANTOPRAZOLE 40 MG/10 ML VIAL INJ IV SCH (10:00)
[2025-03-08] MEDS ORDERED: predniSONE 20 MG TAB PO SCH (10:00)
--- NOTE | 2025-03-08 10:53 | DVH ---
NUCLEAR MEDICINE VENTILATION/PERFUSION LUNG SCAN. INDICATION: PULMONARY EMBOLISM TECHNIQUE: Following intravenous demonstration of 6 millicuries of technetium 99m MAA, and inhalati on of 40 mCi of Tc 99m DTPA scintigrams were obtained in multiple projections of the lungs. FINDINGS: There is normal uptake of radionuclide on both the ventilation and perfusion portions of the examinat ion. No mismatched perfusion defects are demonstrated. Uptake is normally homogeneous. IMPRESSION: Low probability for PE.
[2025-03-08 10:57] LABS: Hemoglobin 8.4 g/dL (12.2-16.2)
[2025-03-08 10:58] LABS: Hematocrit 26.4 % (36.0-46.0); Mean Corpuscular Hemoglobin 30.3 pg (28.0-32.0); Mean Corpuscular Volume 95.2 fL (80.0-100.0)
[2025-03-08] MEDS: methylPREDNISolone SOD SUCC 40 MG/ML VL IV SCH (11:04)
[2025-03-08] MEDS: PANTOPRAZOLE 40 MG/10 ML VIAL INJ IV SCH (11:06)
[2025-03-08] MEDS: BUMETANIDE 2.5mg/10ml (0.25 mg/ml) INJ IV ONE (11:07)
--- NOTE | 2025-03-08 11:35 | DVHPNRES ---
Progress Note Date Seen: Mar 08, 2025 Resident Creating Document: AVIVA XAVIER RESIDENT Medical Necessity Reason Pt with a Central, PICC or Fol: Yes The following are medically ne: Stokes Catheter Subjective Review of Systems Amada Aldridge is a 39-year-old female patient who presents to the ED with chief complaint of abdominal distention and leg swelling which started approximately one week before her admission associated with dyspnea, oppressive epigastric pain in Functional Class III worsened by exertion with fluctuating intensity and reduce urine output which started the day of her admission prompting visit to the ED. Patient reports history of alcoholic liver cirrhosis and history of congestive heart failure with an enlarged heart. Patient reports last episode of recurrence in drinking approximately one month ago. She also takes Tylenol twice a day due to abdominal pain. Denies fever, chills, sick contacts, nausea, vomiting, diarrhea and recent travel. 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 Ex ethanol abuse (one bottle of hard liquor a day) she quit one month ago. Denies current tobacco, alcohol and other drug abuse Allergies: Denies Home medication: Tylenol Patient seen and examined at bedside. Patient currently in ICU status with bicarbonate drip and IV vasopressors. Continues with dyspnea, she has been anuric for the past 48 hours, refractory to IV diuretics. She will start hemodialysis at this point, patient has poor prognosis Objective vital signs Vital Sign Date Time Temp Pulse Resp B/P (MAP) Pulse Ox O2 Delivery O2 Flow Rate FiO2 03/08/25 11:23 113/59 03/08/25 10:45 97.0 68 14 99 206.6 03/08/25 08:33 Oxymizer 15 N/A Total Intake and Output 03/07/25 03/07/25 03/08/25 15:00 23:00 07:00 Intake Total 1470 ml 2106.25 ml Output Total 0 ml 40 ml Balance 1470 ml 2066.25 ml medications Current Medications Medications Dose Ordered Sig/Hugh Route Start Time Stop Time Status Last Admin Dose Admin Tramadol HCl 50 mg Q6HP PRN PO 10/20/25 00:00 03/07/25 13:25 50 MG Ondansetron HCl 4 mg Q4HPRN PRN IV 03/05/25 11:15 03/06/25 15:46 4 MG Ceftriaxone Sodium 50 ml @ 100 mls/hr DAILY IV 03/07/25 14:45 03/08/25 11:16 100 MLS/HR Metronidazole 100 ml @ 100 mls/hr Q8HR IV 03/07/25 22:00 03/08/25 05:14 100 MLS/HR Pantoprazole Sodium 40 mg DAILY IV 03/08/25 10:00 03/08/25 11:06 40 MG Phenylephrine HCl 250 ml @ 30 mls/hr Q8H20M IV 03/07/25 20:30 03/08/25 11:23 105 MLS/HR Furosemide 40 mg BIDD IV 03/08/25 06:00 03/08/25 05:55 40 MG Norepinephrine Bitartrate 250 ml @ 3.75 mls/hr Q24H IV 03/07/25 23:30 03/08/25 07:48 33.75 MLS/HR Sodium Bicarbonate 50 ml/ Sodium Chloride 1,050 ml @ 100 mls/hr [id number] IV 03/08/25 05:00 03/08/25 08:25 100 MLS/HR Methylprednisolone Sodium Succinate 40 mg DAILY IV 03/08/25 10:00 03/08/25 11:04 40 MG Ipratropium [place] 0.5 mg Q6HR NEB 03/08/25 12:00 Albuterol 2.5 mg Q6HR NEB 03/08/25 12:00 Examination Patient lying in bed, in mild acute distress General: Lucid, afebrile, mucosae are moist, jaundice, conjunctivae are icteric Cardiovascular: Normal S1 and S2. Holosystolic murmur best heard in left lower parasternal border intensity 4/6 does not radiate towards axilla. No gallops or rubs Respiratory: Regular ventilation mechanics, tachypnea. Bibasilar rales, rest of auscultation is clear. Currently patient is on Oxymizer 10 L/min Abdomen: Soft but mildly distended, mild tenderness when palpating epigastrium rest of abdomen is nontender, no organomegaly, normal bowel sounds MSK/skin: Mobilizes 4 limbs. Skin is dry and warm. Bilateral lower limb pitting edema Neurological: Oriented in 3 spheres. No motor no sensitive deficits. Pupils are isocoric and reactive laboratory and microbiology Laboratory Tests 03/08/25 09:10 03/08/25 02:59 Test 03/08/25 02:59 Range/Units Serum Glucose 75 74-106 mg/dL Problem List/Assessment/Plan Problem List/Assessment/Plan Assessment Acute hypoxic respiratory failure Acute on chronic diastolic congestive heart failure (HFpEF, LVEF 50%) Right ventricular heart failure Probable pulmonary hypertension Severe tricuspid regurgitation Small pericardial effusion Septic shock probably secondary to spontaneous bacterial peritonitis vs UTI Complicated UTI Decompensated alcoholic liver cirrhosis Hepatorenal syndrome AVA hemodynamically mediated (VMN) Portal hypertension Metabolic acidosis with increased anion gap probably secondary to hyperlacticacidemia Hyperkalemia Normocytic anemia Thrombocytopenia Rule out hypothyroidism Dyslipidemia Vitamin-D deficiency Obese Plan/Recommendation Patient completed echo which showed LVEF 50%, severe RV enlargement with failure, RA enlarged, severe tricuspid regurgitation small pericardial effusion circumferential and posterior with no hemodynamic compromise. Ordered EKG, troponin are negative x3 (32-32-32), BNP is elevated (above a 1000). Patient is anuric for over 48 hours, despite IV diuretics. Planning on completing hemodialysis at this point. Strict I&Os Patient could have probable pulmonary hypertension in the context of portal hypertension (group one). For correct diagnosis would have to complete right heart catheterization. Could be done once patient is stable or as outpatient. V/Q scan completed which reports low probability of PE Patient currently on Oxymizer at 10 L/min. Patient currently in septic shock, probably secondary to spontaneous bacterial peritonitis in the context of decompensated liver cirrhosis with increased meld score and hepatorenal syndrome. (hypotension, tachypnea, leukocytosis and increased lactic acid), patient also has increased inflammatory markers. Patient is on phenylephrine. Ordered brown cultures (blood, urine and sputum). Patient has mild ascites, could not obtain paracentesis for ascitic fluid culture. GI specialist on board indicating steroids. Ordered UDS. Tylenol and alcohol levels are negative Rest of management per primary team (IV antibiotics, IV vasopressors, bicarbonate drip and upgraded to ICU status) Goals of care discussed with patient for over 18 minutes: Full code status Discussed plan with Dr. Peres, patient and nurses: Currently in ICU status due to requirement of IV vasopressors and bicarbonate drip. Refractory to IV diuretics, patient was on hemodialysis. Strict I&Os. V/Q scan reports low probability of PE. If patient keeps deteriorated consider mechanical assisted ventilation and inotropic support (with Milrinone). Patient has poor prognosis Critical care time spent including discussion with nursing and family, excluding procedures: 76 minutes Plan discussed with: Patient, Other (Nurses) My Orders My Orders Orders - AVIVA XAVIER Procedure Category Date Status Time Furosemide Injection PHA 03/08/25 In Process (Lasix Injection) 06:00 Blood Culture MICHELLE 03/07/25 In Process 21:24 Urine Bacterial MICHELLE 03/07/25 Logged Culture 21:24 Respiratory Culture MICHELLE 03/07/25 Logged W/ Gs 21:24 Strict I & O PEDRO 03/07/25 In Process 21:34 Dietary Evaluation Review Comments: Nutrition Recommendation 1) Cardiac + 2gm K msoft diet 2) Consider Ensure high protein 240ml TID if PO intake < 50% 3) Monitor PO intake, lab values, weight trend, and I/O Expected Outcomes/Goals: Lab values to improve Fu 3-5 days Visit Coding Cardiology RES Date of Service: Mar 08, 2025 Billing Provider: GABRIEL PERES Sr., MD Cardiology Common Codes: [id number] HOSP CARE(AVIVA Santana RESIDENT Mar 08, 2025 11:35
[2025-03-08 12:01] LABS: Nucleated Red Blood Cells % 2.0 %; Total Cells Counted 100.0 (100)
[2025-03-08 12:02] LABS: Anisocytosis Slight
[2025-03-08] MEDS: LORazepam 2MG/ML-1ML VIAL IV ONE (12:24)
[2025-03-08] MEDS: fentaNYL CITRATE 100 MCG/2 ML VL ONE (12:28)
[2025-03-08] MEDS: fentaNYL CITRATE 100 MCG/2 ML VL IV ONE (12:30)
[2025-03-08] MEDS: IPRATROPIUM BROM 0.5 MG/2.5ML INH SOL NEB SCH (12:40)
[2025-03-08] MEDS: ALBUTEROL SULF 2.5 MG/0.5ML(0.5%) NEB SOLN NEB SCH (12:40)
[2025-03-08] MEDS: PHENYLEPHRINE INJ 80 MG in SODIUM CHL 0.9% 242 ML IV SCH (13:56)
--- NOTE | 2025-03-08 14:02 | DVH ---
INDICATION: central line placement TECHNIQUE: Single frontal view of the chest was obtained COMPARISON: XY CHEST PORTABLE on DOS: 03/08/25, XY CHEST XRAY 1 VIEW on DOS: 03/07/25, XY CHEST LUCI BLE on DOS: 03/04/25, XY CHEST PORTABLE on DOS: 03/08/25 FINDINGS: Lines and Tubes: Right central venous catheter tip in the cavoatrial junction Lungs: No focal consolidation. Pleura: No effusion. No pneumothorax. Cardiomediastinal contours: Stable cardiomegaly. Bones: No acute osseous abnormality. IMPRESSION: 1. No acute pulmonary disease. 2. Stable cardiomegaly.
--- NOTE | 2025-03-08 14:06 | DVHNC2 ---
Central Line Recorder of insertion practice: Kettle Skimmer Occupation of operations processor: Other (JUANA Redman) Indication: Hypotension Room prepared for procedure: Yes Kettle Skimmer performed hand hygien: Yes Maximal sterile barrier precau: Mask/Eye shield, Sterile gown, Cap, Sterlie gloves, Large sterlie drape Skin Preparation: Chlorhexidine gluconate Skin preparation completely dr: Yes Insertion site: Right, Internal jugular Central line catheter type: [id number] dialysis Number of lumens: 3 Central line exchanged over a: No Antiseptic ointment applied to: No Post Assessment: Chest X-Ray, Proper placement, No Pneumothorax Informed consent obtained: Yes Risks/benefits/alt described: Yes Notes Ultrasound guidance used. Estimated blood loss 5 mL CPT code for ultrasound guidance: 39766 Date of Service: Mar 08, 2025 Billing Provider: TUCKER GROSS NP Common Visit Codes: PROCEDURE ONLY Procedure Codes: [id number] NON-TUNNEL CV CATH TUCKER GROSS NP Mar 08, 2025 14:06
--- NOTE | 2025-03-08 14:08 | DVHNC2 ---
Central Line Recorder of insertion practice: Coordinate Measuring Machine Operator Occupation of roentgenology teacher: Other (JUANA Redman) Indication: Other (Hemodialysis) Room prepared for procedure: Yes Coordinate Measuring Machine Operator performed hand hygien: Yes Maximal sterile barrier precau: Mask/Eye shield, Sterile gown, Cap, Sterlie gloves, Large sterlie drape Skin Preparation: Chlorhexidine gluconate Skin preparation completely dr: Yes Insertion site: Right, Femoral Central line catheter type: Dialysis non-tunneled Number of lumens: 2 Central line exchanged over a: No Antiseptic ointment applied to: No Post Assessment: Proper placement Informed consent obtained: Yes Risks/benefits/alt described: Yes Notes Ultrasound guidance used. Estimated blood loss 5 mL CPT code for ultrasound guidance: 13735 Date of Service: Mar 08, 2025 Billing Provider: TUCKER GROSS NP Common Visit Codes: PROCEDURE ONLY Procedure Codes: 56803-CGVIPA NON-TUNNEL CV CATH TUCKER GROSS NP Mar 08, 2025 14:08
[2025-03-08] MEDS: SODIUM CHL 0.9% 1000 ML BAG XX ONE (15:00)
[2025-03-08] MEDS: ALBUMIN 25% 100 ML IV ONE ×2 (15:00→15:19)
--- NOTE | 2025-03-08 15:12 | DVHINCON2 ---
Date of service: Mar 08, 2025 Referring Physician Devon Maloney Reason for Consultation AVA History of Present Illness 39-year-old female past medical history of alcoholic liver disease with cirrhosis history was obtained from family member at bedside power poor historian. Patient presents to the hospital complaining of difficulty breathing her hospital course was notable for an admission for presumed congestive heart failure. She progressively became short of breath during admission and noted concern of hypoxia patient was upgraded to the ICU nephrology is consulted for acute management due to progressive and dressing worsening in renal function baseline renal function is consider to be within the normal range. Upon my evaluation in the ICU patient is not intubated but lethargic Allergies: Coded Allergies: No Known Drug Allergy (Verified Allergy, Unknown, 03/05/25) Home Meds Reported Medications Furosemide (Furosemide) 20 Mg Tab, 20 MG PO, TAB 03/05/25 Current Medications Current Medications Medications (Trade) Dose Ordered Sig/Hugh Route PRN Reason Start Time Stop Time Status Last Admin Sodium Bicarbonate 50 ml/ Sodium Chloride 1,050 ml @ 75 mls/hr Q14H IV 03/07/25 15:30 03/08/25 05:00 DC 03/07/25 17:44 Pantoprazole Sodium (Protonix) 40 mg BID IV 03/08/25 10:00 03/07/25 18:38 DC Metronidazole 100 ml @ 100 mls/hr Q8HR IV 03/07/25 22:00 03/08/25 11:49 DC 03/08/25 05:14 Pantoprazole Sodium (Protonix) 40 mg DAILY IV 03/08/25 10:00 03/08/25 11:06 Prednisone 40 mg DAILY PO 03/08/25 10:00 03/08/25 09:16 DC Phenylephrine HCl 250 ml @ 30 mls/hr Q8H20M IV 03/07/25 20:30 03/08/25 13:17 DC 03/08/25 11:23 Furosemide (Lasix Injection) 40 mg BIDD IV 03/08/25 06:00 03/08/25 05:55 Norepinephrine Bitartrate 250 ml @ 3.75 mls/hr Q24H IV 03/07/25 23:30 03/08/25 07:48 Sodium Bicarbonate 50 ml/ Sodium Chloride 1,050 ml @ 100 mls/hr [id number] IV 03/08/25 05:00 03/08/25 08:25 Methylprednisolone Sodium Succinate (Solu Medrol) 40 mg DAILY IV 03/08/25 10:00 03/08/25 11:04 Ipratropium [place] (Atrovent Medneb) 0.5 mg Q6HR NEB 03/08/25 12:00 03/08/25 12:40 Albuterol (Ventolin Medneb) 2.5 mg Q6HR NEB 03/08/25 12:00 03/08/25 12:40 Meropenem 50 ml @ 17 mls/hr DAILY IV 03/09/25 10:00 Micafungin Sodium 100 mg/Sodium Chloride 100 ml @ 100 mls/hr DAILY IV 03/09/25 10:00 Enoxaparin Sodium (Lovenox) 30 mg DAILY SC 03/09/25 10:00 Morphine Sulfate 1 mg Q3HP PRN IV SEVERE PAIN (7-10 PAIN SCALE) 03/08/25 12:15 Phenylephrine HCl 80 mg/Sodium Chloride 250 ml @ 7.5 mls/hr Q24H IV 03/08/25 13:15 03/08/25 13:56 Family History: Kidney stone G8 MOTHER Review of Systems Can not obtain due to critical illness H&P Exam Vital Signs/I&O Vital Sign Date Time Temp Pulse Resp B/P (MAP) Pulse Ox O2 Delivery O2 Flow Rate FiO2 03/08/25 14:30 97.5 76 15 123/65 (84) 94 207.5 03/08/25 14:00 Oxymizer 13 N/A Intake and Output 03/07/25 03/08/25 18:59 06:59 Intake Total 600 ml 2976.25 ml Output Total 0 ml 40 ml Balance 600 ml 2936.25 ml Intake Oral 600 ml 200 ml IV Total 2776.25 ml Output Urine Total 0 ml 40 ml Stool Total 0 ml # Bowel Movements 1 Physical Exam Ill-appearing young female lethargic not intubated abdomen is soft no murmurs no pitting edema Stokes catheter has minimal urinary output dark brown in color Labs/Diagnostic Data Labs/Diagnostic Data Laboratory Tests Test 03/08/25 09:10 03/08/25 09:00 03/08/25 08:32 03/08/25 04:46 Range/Units White Blood Count 23.5 #H 4.4-10.8 10^3/uL Red Blood Count 2.77 L 4.0-5.20 10^6/uL Hemoglobin 8.4 L 12.2-16.2 g/dL Hematocrit 26.4 #L 36.0-46.0 % Mean Corpuscular Volume 95.2 80.0-100.0 fL Mean Corpuscular Hemoglobin 30.3 28.0-32.0 pg Mean Corpuscular Hemoglobin Concent 31.8 L 32.0-36.0 g/dL Red Cell Distribution Width 23.5 H 11.8-14.3 % Platelet Count 136 L 140-450 10^3/uL Mean Platelet Volume 10.5 6.9-10.8 fL Neutrophils (%) (Auto) 37.0-80.0 % Lymphocytes (%) (Auto) 10.0-50.0 % Monocytes (%) (Auto) 0.0-12.0 % Basophils (%) (Auto) 0.0-2.0 % Neutrophils # (Auto) 1.6-8.6 10 ^3/uL Lymphocytes # (Auto) 0.4-5.4 10 ^3/uL Monocytes # (Auto) 0-1.3 10 ^3/uL Differential Total Cells Counted 100.0 100 Neutrophils % (Manual) 57 37.0-80.0 Band Neutrophils % (Manual) 8 Lymphocytes % (Manual) 18 10.0-50.0 Monocytes % (Manual) 17 H 0-12 Eosinophils % (Manual) 0 0-7 Basophils % (Manual) 0 0.0-2.0 Metamyelocytes % (manual) 0 Myelocytes % (Manual) 0 Promyelocytes % (Manual) 0 Blast Cells % (Manual) 0 Nucleated Red Blood Cells 2.0 % Reactive Lymphocytes 0 Platelet Estimate Decreased Large Platelets Few Anisocytosis (manual) Slight Urine Color Dark-yellow Yellow Urine Clarity Ex.turbid Clear Urine pH 6.0 5.0-9.0 Urine Specific [place] 1.018 1.001-1.035 Urine Protein 3+ H Negative Urine Ketones Negative Negative Urine Blood 3+ H Negative /uL Urine Nitrite Negative Negative Urine Bilirubin 1+ H Negative Urine Urobilinogen 2 H Negative mg/dL Urine Leukocyte Esterase 3+ Negative /uL Urine RBC 1880 0 - 4 /hpf Urine Microscopic WBC 321 H 0-5 /HPF Urine Squamous Epithelial Cells Mod <5 /hpf Urine Calcium Oxalate Crystals Few None Seen Urine Bacteria Mod H None Seen /hpf Urine Mucus Few None Seen Urine Glucose Trace Normal mg/dL POC Glucose 101 70-106 mg/dl Blood Gas Specimen Type Arterial Blood Gas Sample Site Right radial Blood Gas Patient Temperature 37.0 Arterial Blood Date Drawn [id number] Arterial Blood pH 7.297 L 7.350-7.450 Arterial Blood Partial Pressure CO2 28.5 L 32.0-45.0 mmHg Arterial Blood Partial Pressure O2 75.0 L 83.0-108.0 mmHg Arterial Blood HCO3 13.6 L 21.0-28.0 mmol/L Arterial Blood Oxygen Saturation 91.5 L 94.0-98.0 % Arterial Blood Base Excess -11.6 L -2.0-3.0 mmol/L Arterial Blood Oxyhemoglobin 90.8 L 94.0-98.0 % Arterial Blood Carboxyhemoglobin 0.4 L 0.5-1.5 % Arterial Blood Methemoglobin 0.4 0.0-1.5 % Cheikh Test Yes Blood Gas Total Hemoglobin 9.80 L 12.0-16.0 g/dL Blood Gas Liter Flow 15.00 Blood Gas Modality Oxymizer FiO2 % 80.0 Test 03/08/25 02:59 03/07/25 23:41 03/07/25 23:00 03/07/25 22:05 Range/Units Sodium Level 123 L 123 L 136-145 mmol/L Potassium Level 5.7 *H 4.9 3.5-5.1 mmol/L Chloride Level 90 L 90 L 98-107 mmol/L Carbon Dioxide Level 15 L 17 L 20-31 mmol/L Anion Gap 18 H 16 H 5-15 Blood Urea Nitrogen 45 H 46 H 9-23 mg/dL Creatinine 3.69 H 3.51 H 0.550-1.02 mg/dL Glomerular Filtration Rate Calc 16 16 >90 mL/min BUN/Creatinine Ratio 12.2 13.1 10.0-20.0 Serum Glucose 75 78 74-106 mg/dL Calcium Level 8.0 L 8.4 L 8.7-10.4 mg/dL Blood Gas Specimen Type Arterial Blood Gas Sample Site Right radial Blood Gas Patient Temperature 37.0 Arterial Blood Date Drawn [id number] Arterial Blood pH 7.329 L 7.350-7.450 Arterial Blood Partial Pressure CO2 24.9 L 32.0-45.0 mmHg Arterial Blood Partial Pressure O2 74.6 L 83.0-108.0 mmHg Arterial Blood HCO3 12.8 L 21.0-28.0 mmol/L Arterial Blood Oxygen Saturation 92.4 L 94.0-98.0 % Arterial Blood Base Excess -11.7 L -2.0-3.0 mmol/L Arterial Blood Oxyhemoglobin 90.8 L 94.0-98.0 % Arterial Blood Carboxyhemoglobin 1.7 H 0.5-1.5 % Arterial Blood Methemoglobin 0.0 0.0-1.5 % Cheikh Test Yes Blood Gas Total Hemoglobin 9.50 L 12.0-16.0 g/dL Blood Gas Liter Flow 15.00 Blood Gas Modality Oxymizer FiO2 % 80.0 Influenza Type A Antigen Negative Negative Influenza Type B Antigen Negative Negative SARS-CoV-2 Antigen (Rapid) Negative NEGATIVE Free Thyroxine (T4) Calculated 0.92 0.89-1.76 ng/dL Total Triiodothyronine (TT3) 0.50 L 0.60-1.81 ng/mL Acetaminophen Level < 2.0 L 10.0-20.0 UG/ML Test 03/07/25 19:17 03/07/25 18:18 03/07/25 17:34 03/07/25 15:18 Range/Units Lactic Acid Level 4.5 *H 4.4 *H 0.4-2.0 mmol/L POC Glucose 113 H 70-106 mg/dl Ammonia < 10 L 11-32 umol/L White Blood Count 15.0 #H 4.4-10.8 10^3/uL Red Blood Count 3.07 L 4.0-5.20 10^6/uL Hemoglobin 9.2 L 12.2-16.2 g/dL Hematocrit 29.8 #L 36.0-46.0 % Mean Corpuscular Volume 97.0 # 80.0-100.0 fL Mean Corpuscular Hemoglobin 30.1 28.0-32.0 pg Mean Corpuscular Hemoglobin Concent 31.0 L 32.0-36.0 g/dL Red Cell Distribution Width 24.1 H 11.8-14.3 % Platelet Count 130 L 140-450 10^3/uL Mean Platelet Volume 10.7 6.9-10.8 fL Neutrophils (%) (Auto) 71.5 37.0-80.0 % Lymphocytes (%) (Auto) 18.6 10.0-50.0 % Monocytes (%) (Auto) 9.3 0.0-12.0 % Eosinophils (%) (Auto) 0.1 0.0-7.0 % Basophils (%) (Auto) 0.5 0.0-2.0 % Neutrophils # (Auto) 10.7 H 1.6-8.6 10 ^3/uL Lymphocytes # (Auto) 2.8 0.4-5.4 10 ^3/uL Monocytes # (Auto) 1.4 H 0-1.3 10 ^3/uL Eosinophils # (Auto) 0 0-0.8 10 ^3/uL Basophils # (Auto) 0.1 0-0.2 10 ^3/uL Nucleated Red Blood Cells 0.5 % Erythrocyte Sedimentation Rate 99 H 0-20 mm/hr D-Dimer, Quantitative 7.12 H 0.0-0.49 mg/L FEU Sodium Level 122 #L 136-145 mmol/L Potassium Level 5.8 *H 3.5-5.1 mmol/L Chloride Level 90 L 98-107 mmol/L Carbon Dioxide Level 15 L 20-31 mmol/L Anion Gap 17 H 5-15 Blood Urea Nitrogen 49 #H 9-23 mg/dL Creatinine 3.47 #H 0.550-1.02 mg/dL Glomerular Filtration Rate Calc 17 >90 mL/min BUN/Creatinine Ratio 14.1 10.0-20.0 Serum Glucose 99 74-106 mg/dL Hemoglobin A1c < 3.8 <5.7 % A1C Calcium Level 8.2 L 8.7-10.4 mg/dL Phosphorus Level 9.1 H 2.4-5.1 mg/dL Magnesium Level 1.9 1.6-2.6 mg/dL Ferritin 137.2 10-291 ng/mL Total Bilirubin 12.5 H 0.2-1.0 mg/dL Aspartate Amino Transferase (AST) 309 H 13-40 U/L Alanine Aminotransferase (ALT) 104 H 7-40 U/L Alkaline Phosphatase 96 46-116 U/L C-Reactive Protein High Sensitivity 1.80 H <1.0 mg/dL B-Type Natriuretic Peptide 1061.65 0-100 pg/mL Total Protein 9.2 H 5.7-8.2 g/dL Albumin 3.9 3.2-4.8 g/dL Triglycerides Level 134 < 150 mg/dL Cholesterol Level 320 H < 200 mg/dL LDL Cholesterol 135 H < 100 mg/dL HDL Cholesterol 60 H 40-59 mg/dL Vitamin B12 Level > 2000 H 211-911 pg/mL Vitamin D 25-Hydroxy 12.2 L 30.0-100 ng/mL Thyroid Stimulating Hormone (TSH) 9.92 H 0.55-4.78 uIU/mL Beta HCG, Quantitative 0.1 L 1.5-4.2 mIU/mL Plasma/Serum Blood Alcohol < 3.0 <10 mg/dL Test 03/07/25 15:05 03/06/25 04:46 03/05/25 12:40 03/05/25 07:24 Range/Units Blood Gas Specimen Type Arterial Blood Gas Sample Site Right radial Blood Gas Patient Temperature 37.0 Arterial Blood Date Drawn [id number] Arterial Blood pH 7.258 L 7.350-7.450 Arterial Blood Partial Pressure CO2 28.6 L 32.0-45.0 mmHg Arterial Blood Partial Pressure O2 60.0 L 83.0-108.0 mmHg Arterial Blood HCO3 12.5 L 21.0-28.0 mmol/L Arterial Blood Oxygen Saturation 83.4 *L 94.0-98.0 % Arterial Blood Base Excess -13.3 L -2.0-3.0 mmol/L Arterial Blood Oxyhemoglobin 82.1 L 94.0-98.0 % Arterial Blood Carboxyhemoglobin 1.3 0.5-1.5 % Arterial Blood Methemoglobin 0.2 0.0-1.5 % Cheikh Test Modified Blood Gas Total Hemoglobin 10.50 L 12.0-16.0 g/dL Blood Gas Liter Flow 3.00 Blood Gas Modality Vent - ac FiO2 % 32.0 Blood Gas Critical Value Read Back yes Blood Gas Notified Whom elan low Blood Gas Notified Time [id number] Blood Gas Notified By marketing compliance manager andre White Blood Count 6.0 # 4.0 L 4.4-10.8 10^3/uL Red Blood Count 2.85 L 2.85 L 4.0-5.20 10^6/uL Hemoglobin 8.4 L 8.5 L 12.2-16.2 g/dL Hematocrit 25.7 L 25.5 L 36.0-46.0 % Mean Corpuscular Volume 90.2 89.5 80.0-100.0 fL Mean Corpuscular Hemoglobin 29.6 29.7 28.0-32.0 pg Mean Corpuscular Hemoglobin Concent 32.8 33.2 32.0-36.0 g/dL Red Cell Distribution Width 23.7 H 24.5 H 11.8-14.3 % Platelet Count 70 L 69 L 140-450 10^3/uL Mean Platelet Volume 9.3 9.2 6.9-10.8 fL Neutrophils (%) (Auto) 77.2 75.0 37.0-80.0 % Lymphocytes (%) (Auto) 12.2 12.6 10.0-50.0 % Monocytes (%) (Auto) 8.9 10.6 0.0-12.0 % Eosinophils (%) (Auto) 1.0 0.6 0.0-7.0 % Basophils (%) (Auto) 0.7 1.2 0.0-2.0 % Neutrophils # (Auto) 4.7 3.0 1.6-8.6 10 ^3/uL Lymphocytes # (Auto) 0.7 0.5 0.4-5.4 10 ^3/uL Monocytes # (Auto) 0.5 0.4 0-1.3 10 ^3/uL Eosinophils # (Auto) 0.1 0 0-0.8 10 ^3/uL Basophils # (Auto) 0 0 0-0.2 10 ^3/uL Nucleated Red Blood Cells 0.1 0.1 % Prothrombin Time 17.0 H 9.3-11.8 sec Prothrombin Time INR 1.69 H 0.9-1.15 Activated Partial Thromboplast Time 32.0 24.5-34.5 SEC Sodium Level 131 L 133 L 136-145 mmol/L Potassium Level 3.9 3.9 3.5-5.1 mmol/L Chloride Level 97 L 100 98-107 mmol/L Carbon Dioxide Level 21 20 20-31 mmol/L Anion Gap 13 13 5-15 Blood Urea Nitrogen 22 # 9 9-23 mg/dL Creatinine 1.49 #H 0.76 0.550-1.02 mg/dL Glomerular Filtration Rate Calc 46 103 >90 mL/min BUN/Creatinine Ratio 14.8 11.8 10.0-20.0 Serum Glucose 100 96 74-106 mg/dL Calcium Level 8.5 L 8.6 L 8.7-10.4 mg/dL Total Bilirubin 14.2 H 11.2 H 0.2-1.0 mg/dL Aspartate Amino Transferase (AST) 129 H 61 H 13-40 U/L Alanine Aminotransferase (ALT) 37 21 7-40 U/L Alkaline Phosphatase 88 100 46-116 U/L Ammonia < 10 L 11-32 umol/L Total Protein 8.4 H 8.7 H 5.7-8.2 g/dL Albumin 3.5 3.7 3.2-4.8 g/dL POC Glucose 95 70-106 mg/dl Test 03/05/25 02:24 03/05/25 00:18 03/04/25 23:24 03/04/25 22:05 Range/Units Hepatitis B Surface Antigen Negative Negative Hepatitis C Antibody Negative Negative Iron Level 83 50-170 ug/dL Total Iron Binding Capacity 359 250-425 ug/dL Percent Iron Saturation 23.1 15-50 % Ammonia 18 11-32 umol/L Troponin I High Sensitivity 32 32 32 </=34 ng/L White Blood Count 4.4 4.4-10.8 10^3/uL Red Blood Count 2.91 L 4.0-5.20 10^6/uL Hemoglobin 8.5 L 12.2-16.2 g/dL Hematocrit 26.0 L 36.0-46.0 % Mean Corpuscular Volume 89.3 80.0-100.0 fL Mean Corpuscular Hemoglobin 29.2 28.0-32.0 pg Mean Corpuscular Hemoglobin Concent 32.7 32.0-36.0 g/dL Red Cell Distribution Width 24.8 H 11.8-14.3 % Platelet Count 76 L 140-450 10^3/uL Mean Platelet Volume 9.1 6.9-10.8 fL Neutrophils (%) (Auto) 80.1 H 37.0-80.0 % Lymphocytes (%) (Auto) 10.8 10.0-50.0 % Monocytes (%) (Auto) 7.8 0.0-12.0 % Eosinophils (%) (Auto) 0.1 0.0-7.0 % Basophils (%) (Auto) 1.2 0.0-2.0 % Neutrophils # (Auto) 3.5 1.6-8.6 10 ^3/uL Lymphocytes # (Auto) 0.5 0.4-5.4 10 ^3/uL Monocytes # (Auto) 0.3 0-1.3 10 ^3/uL Eosinophils # (Auto) 0 0-0.8 10 ^3/uL Basophils # (Auto) 0.1 0-0.2 10 ^3/uL Nucleated Red Blood Cells 0.0 % Platelet Estimate Decreased Large Platelets Few Anisocytosis (manual) Slight Sodium Level 132 L 136-145 mmol/L Potassium Level 3.2 L 3.5-5.1 mmol/L Chloride Level 99 98-107 mmol/L Carbon Dioxide Level 18 L 20-31 mmol/L Anion Gap 15 5-15 Blood Urea Nitrogen 7 L 9-23 mg/dL Creatinine 0.78 0.550-1.02 mg/dL Glomerular Filtration Rate Calc 100 >90 mL/min BUN/Creatinine Ratio 9.0 L 10.0-20.0 Serum Glucose 97 74-106 mg/dL Calcium Level 8.8 8.7-10.4 mg/dL Total Bilirubin 9.6 H 0.2-1.0 mg/dL Aspartate Amino Transferase (AST) 63 H 13-40 U/L Alanine Aminotransferase (ALT) 24 7-40 U/L Alkaline Phosphatase 105 46-116 U/L B-Type Natriuretic Peptide 657.16 0-100 pg/mL Total Protein 9.0 H 5.7-8.2 g/dL Albumin 3.8 3.2-4.8 g/dL Assessment Acute kidney injury hemodynamically mediated -due to severe anuric failure and failed course of diuretics recommend urgent hemodialysis treatment, no fluid removal during initial treatment due to instability ETOH cirrhosis -elevated AST, recommend urine drug screen, albumin IV -hyperbilirubinemia anemia noted defer management to primary medical team and Gastroenterology RV failure with severe tricuspid disease -monitor hemodynamics avoid hypotension recommend maintain mean arterial pressure greater than 65 with pressors Cardiology Hyperkalemia -treated with hemodialysis treatment Convert to p.o. potassium restricted diet if tolerates p.o. and potassium binders if needed Metabolic acidosis -treatment with hemodialysis patient is status post sodium bicarbonate drip Anemia, thrombocytopenia, coagulopathy this is likely in the setting of cirrhosis -conservative management transfusions as per hospital protocols KEELY today Rec PRBC if hemoglobin less than 8.0 Sepsis concerning for septic shock Positive urinalysis recommend broad-spectrum antibiotics and renal dose of antibiotics for GFR less than 15% Hyponatremia - fluid restriction, fluid removal as tolerated in diuretic therapy once renal function improve Critically ill with high-risk of clinical decline critical care time 33mins Plan discussed with: Daughter CARON PAULINO MD Mar 08, 2025 15:12
[2025-03-08] MEDS ORDERED: VANCOMYCIN PER PHARMACY 0 MG IV SCH (15:45)
[2025-03-08] MEDS: VASOPRESSIN 20 UNITS in SODIUM CHL 0.9% 99 ML IV SCH (17:08)
[2025-03-08] MEDS: NOREPINEPHRINE BITARTRATE 32 MG in SODIUM CHL 0.9% 218 ML IV SCH (18:04)
[2025-03-08] MEDS: VANCOMYCIN 1.25GM/250ML 250 ML IV ONE (18:08)
[2025-03-08 18:10] LABS: Iron 21.0 ug/dL (50-170)
[2025-03-08 18:12] LABS: Albumin 3.8 g/dL (3.2-4.8); Alkaline Phosphatase 76 U/L (46-116); Anion Gap 16 (5-15); BUN/Creatinine Ratio 10.3 (10.0-20.0); Carbon Dioxide 22 mmol/L (20-31); Glucose 98 mg/dL (74-106); Potassium 4.4 mmol/L (3.5-5.1); Total Iron Binding Capacity 296.0 ug/dL (250-425)
[2025-03-08 18:14] LABS: Alanine Aminotransferase 108 U/L (7-40); Bilirubin, Total 8.6 mg/dL (0.2-1.0); Blood Urea Nitrogen 30 mg/dL (9-23); Calcium 7.4 mg/dL (8.7-10.4); Chloride 94 mmol/L (98-107); Sodium 132 mmol/L (136-145); Total Protein 8.5 g/dL (5.7-8.2)
[2025-03-08 18:19] LABS: Base Excess -2.7 mmol/L (-2.0-3.0)
[2025-03-08 19:12] LABS: Phencyclidine Screen, Urine Neg (NEGATIVE)
[2025-03-08 19:15] LABS: Amphetamine Screen, Urine Neg (NEGATIVE); Barbiturate Scree,Urine Neg (NEGATIVE); Benzodiazephine Screen, Urine Neg (NEGATIVE); Cannabinoid Screen, Urine Neg (NEGATIVE); Cocaine Screen, Urine Neg (NEGATIVE); Opiate Scree,Urine Neg (NEGATIVE)
--- NOTE | 2025-03-08 20:00 | DVHPN2 ---
Progress Note Date Seen: Mar 08, 2025 Resident Creating Document: FAY FELIZ RESIDENT Medical Necessity Reason Pt with a Central, PICC or Fol: Yes The following are medically ne: Stokes Catheter Subjective Review of Systems Patient seen and examined at the bedside significant respiratory distress currently on 10 L oxymiser and is not able to talk in full sentences Reports mild to moderate abdominal pain Objective vital signs Vital Sign Date Time Temp Pulse Resp B/P (MAP) Pulse Ox O2 Delivery O2 Flow Rate FiO2 03/08/25 18:36 85 20 97 03/08/25 18:30 97.3 125/32 63 207.1 03/08/25 18:28 Oxymizer 13 N/A Total Intake and Output 03/07/25 03/07/25 03/08/25 15:00 23:00 07:00 Intake Total 1470 ml 2345.00 ml Output Total 0 ml 40 ml Balance 1470 ml 2305.00 ml medications Current Medications Medications Dose Ordered Sig/Hugh Route Start Time Stop Time Status Last Admin Dose Admin Tramadol HCl 50 mg Q6HP PRN PO 03/05/25 00:00 03/07/25 13:25 50 MG Ondansetron HCl 4 mg Q4HPRN PRN IV 03/05/25 11:15 03/06/25 15:46 4 MG Pantoprazole Sodium 40 mg DAILY IV 03/08/25 10:00 03/08/25 11:06 40 MG Furosemide 40 mg BIDD IV 03/08/25 06:00 03/08/25 05:55 40 MG Methylprednisolone Sodium Succinate 40 mg DAILY IV 03/08/25 10:00 03/08/25 11:04 40 MG Ipratropium [place] 0.5 mg Q6HR NEB 03/08/25 12:00 03/08/25 18:28 0.5 MG Albuterol 2.5 mg Q6HR NEB 03/08/25 12:00 03/08/25 18:28 2.5 MG Meropenem 50 ml @ 17 mls/hr DAILY IV 03/09/25 10:00 Micafungin Sodium 100 mg/Sodium Chloride 100 ml @ 100 mls/hr DAILY IV 03/09/25 10:00 Enoxaparin Sodium 30 mg DAILY SC 03/09/25 10:00 Morphine Sulfate 1 mg Q3HP PRN IV 03/08/25 12:15 Phenylephrine HCl 80 mg/Sodium Chloride 250 ml @ 7.5 mls/hr Q24H IV 03/08/25 13:15 03/08/25 13:56 26.25 MLS/HR Vasopressin 20 units/Sodium Chloride 100 ml @ 9 mls/hr Q11H7M IV 03/08/25 15:30 Vancomycin HCl 0 ml @ 0 mls/hr PER PHARMACY IV 03/08/25 15:45 Norepinephrine Bitartrate 32 mg/ Sodium Chloride 250 ml @ 0.938 mls/ hr Q24H IV 03/08/25 15:45 03/08/25 18:04 9.375 MLS/HR Examination Gen - no pallor, scleral icterus present Skin - Patients skin is warm and dry. HEENT - normocephalic, atraumatic, dry mucous membranes. Neck - supple, no lymphadenopathy Pulmonary - B/L equal air entry with diminished breath sounds cardiovascular - regular S1,S2 heard GI - abdomen distended, nontender. Bowel sounds normoactive. Neurological - Patient is alert and oriented x3. No motor or sensory weakness laboratory and microbiology Laboratory Tests 03/08/25 17:45 03/08/25 09:10 Test 03/08/25 17:45 Range/Units Serum Glucose 98 74-106 mg/dL Microbiology Date/Time Source Procedure Growth Status 03/07/25 18:40 Nose MRSA Screen - Final Complete Problem List/Assessment/Plan Problem List/Assessment/Plan Assessment Liver cirrhosis likely alcoholic, meld Na 36 Possible acute cholecystitis Alcoholic liver disease, MDF 41 Acute hypoxic respiratory failure Right heart failure Pericardial effusion Plan - given high MDF, patient will benefit from steroid with prednisolone 40 mg daily - Protonix 40 mg daily IV - elevated MELD Na, 90 day mortality 65% - monitor liver functions Very Poor prognosis discussed with the family Rest of the management as per primary team Plan discussed with Dr. Pathak Plan discussed with: Patient, Other (ALEJO Jewell) My Orders My Orders Orders - FAY FELIZ RESIDENT Procedure Category Date Status Time Methylprednisolone PHA 03/08/25 In Process Sod Succ (Solu Medrol 10:00 Dietary Evaluation Review Comments: Nutrition Recommendation 1) Cardiac + 2gm K msoft diet 2) Consider Ensure high protein 240ml TID if PO intake < 50% 3) Monitor PO intake, lab values, weight trend, and I/O Expected Outcomes/Goals: Lab values to improve Fu 3-5 days FAY FELIZ RESIDENT Mar 08, 2025 20:00
[2025-03-08] MEDS: EPOETIN ALFA-EPBX 10,000 UNIT/1ML VIAL SC ONE (20:51)
--- NOTE | 2025-03-08 22:13 | DVHINCON2 ---
Date of service: Mar 08, 2025 Referring Physician TYLER Maloney Reason for Consultation Acute hypoxic respiratory failure. History of Present Illness A 39-year-old woman with past medical history of asthma, liver cirrhosis, and anemia who presented to the ED on 03/05/25 for evaluation of shortness of breath. Patient admitted to 1-week history of worsening shortness of breath with mild exertion. She also reported mild chest tightness, epigastric pain, abdominal distention and leg swelling which started approximately one week prior to presentation. Denied fever or chills. Patient does report a history of liver disease secondary to alcohol abuse and history of congestive heart failure with an enlarged heart. She reported her last drink was approximately one month ago. She also takes Tylenol twice a day due to abdominal pain. Patient was admitted for further care. Pulmonary consultation is requested for evaluation and management of acute hypoxic respiratory failure. Review of Systems: 14-point review of systems negative unless otherwise noted above. Past Medical History Liver cirrhosis, asthma, anemia Past Surgical History Denies Medications: Reviewed. Allergies: No known drug allergies. Family History: Positive for cancer and kidney stones. Mother with unknown cancer. Social History: Nonsmoker. No alcohol or illicit drug use. Family History: Kidney stone G8 MOTHER Allergies: Coded Allergies: No Known Drug Allergy (Verified Allergy, Unknown, 03/05/25) Home Meds Active Scripts Lactulose (Lactulose) 10 Gm/15 Ml Peggy, 10 GM PO DAILY for 30 Days, #450 ML Prov:TUCKER MALONEY NP 03/14/25 Levofloxacin Hemihydrate (LEVAQUIN 500 MG) 500 Mg Tab, 1 TAB PO DAILY for 7 Days, #7 TAB Prov:TUCKER MALONEY NP 03/14/25 Ferrous Sulfate (Iron) 325 Mg Tab, 325 MG PO BID for 30 Days, #60 TAB Prov:TUCKER MALONEY NP 03/14/25 Spironolactone (Spironolactone) 25 Mg Tab, 25 MG PO BID for 30 Days, #60 TAB 1 Refill Prov:TUCKER MALONEY NP 03/14/25 Reported Medications Furosemide (Furosemide) 20 Mg Tab, 20 MG PO, TAB 03/05/25 Current Medications Current Medications Medications (Trade) Dose Ordered Sig/Hugh Route PRN Reason Start Time Stop Time Status Last Admin Pantoprazole Sodium (Protonix) 40 mg BID IV 03/08/25:00 03/07/25 18:38 DC Pantoprazole Sodium (Protonix) 40 mg DAILY IV 03/08/25 10:00 03/08/25 11:06 Prednisone 40 mg DAILY PO 03/08/25 10:00 03/08/25 09:16 DC Furosemide (Lasix Injection) 40 mg BIDD IV 03/08/25 06:00 03/08/25 05:55 Norepinephrine Bitartrate 250 ml @ 3.75 mls/hr Q24H IV 03/07/25 23:30 03/08/25 15:44 DC 03/08/25 07:48 Sodium Bicarbonate 50 ml/ Sodium Chloride 1,050 ml @ 100 mls/hr [id number] IV 03/08/25 05:00 03/08/25 15:13 DC 03/08/25 08:25 Methylprednisolone Sodium Succinate (Solu Medrol) 40 mg DAILY IV 03/08/25 10:00 03/08/25 11:04 Ipratropium [place] (Atrovent Medneb) 0.5 mg Q6HR NEB 03/08/25 12:00 03/08/25 18:28 Albuterol (Ventolin Medneb) 2.5 mg Q6HR NEB 03/08/25 12:00 03/08/25 18:28 Meropenem 50 ml @ 17 mls/hr DAILY IV 03/09/25 10:00 Micafungin Sodium 100 mg/Sodium Chloride 100 ml @ 100 mls/hr DAILY IV 03/09/25 10:00 Enoxaparin Sodium (Lovenox) 30 mg DAILY SC 03/09/25 10:00 Morphine Sulfate 1 mg Q3HP PRN IV SEVERE PAIN (7-10 PAIN SCALE) 03/08/25 12:15 Phenylephrine HCl 80 mg/Sodium Chloride 250 ml @ 7.5 mls/hr Q24H IV 03/08/25 13:15 03/08/25 21:24 Vasopressin 20 units/Sodium Chloride 100 ml @ 9 mls/hr Q11H7M IV 03/08/25 15:30 Vancomycin HCl 0 ml @ 0 mls/hr PER PHARMACY IV 03/08/25 15:45 Norepinephrine Bitartrate 32 mg/ Sodium Chloride 250 ml @ 0.938 mls/ hr Q24H IV 03/08/25 15:45 03/08/25 18:04 Vital Signs Vital Signs Date Time Temp Pulse Resp B/P (MAP) Pulse Ox O2 Delivery O2 Flow Rate FiO2 03/08/25 22:00 14 Oxymizer 13 N/A 03/08/25 22:00 83 03/08/25 21:45 97.3 108/72 (84) 98 207.1 Physical Exam Gen.: Patient lying in bed in no apparent distress. On supplemental oxygen. Head: Normocephalic, atraumatic. Eyes: EOMI/PERRLA. Ears: Normal hearing. Normal anatomy. Neck/trachea: Trachea midline, supple. Nose: Normal external anatomy. Mouth: Moist mucous membranes. Chest: Decreased air entry bilaterally. No wheezing or rhonchi. Cardiovascular: Positive S1, positive S2. Regular rate and rhythm. Abdomen: Positive bowel sounds in all 4 quadrants. Soft, non-tender, non- distended. : Deferred. Rectal: Deferred. Skin: Warm, dry. Intact. Extremities: 2+ radial pulses bilaterally. No lower extremity edema. Neuro: Awake, alert, oriented x3. No gross motor or sensory deficits. Cranial nerves II through XII intact. Gait not assessed. Labs/Diagnostic Data Labs Test 03/08/25 18:06 03/08/25 17:45 03/08/25 15:16 03/08/25 09:10 Range/Units Blood Gas Specimen Type Arterial Blood Gas Sample Site Left radial Blood Gas Patient Temperature 37.0 Arterial Blood Date Drawn [id number] Arterial Blood pH 7.416 7.350-7.450 Arterial Blood Partial Pressure CO2 34.0 32.0-45.0 mmHg Arterial Blood Partial Pressure O2 75.7 L 83.0-108.0 mmHg Arterial Blood HCO3 21.4 21.0-28.0 mmol/L Arterial Blood Oxygen Saturation 93.9 L 94.0-98.0 % Arterial Blood Base Excess -2.7 L -2.0-3.0 mmol/L Arterial Blood Oxyhemoglobin 92.3 L 94.0-98.0 % Arterial Blood Carboxyhemoglobin 1.4 0.5-1.5 % Arterial Blood Methemoglobin 0.3 0.0-1.5 % Cheikh Test Yes Blood Gas Total Hemoglobin 9.10 L 12.0-16.0 g/dL Blood Gas Liter Flow 12.00 Blood Gas Modality Oxymizer FiO2 % 82.0 Sodium Level 132 #L 136-145 mmol/L Potassium Level 4.4 3.5-5.1 mmol/L Chloride Level 94 L 98-107 mmol/L Carbon Dioxide Level 22 20-31 mmol/L Anion Gap 16 H 5-15 Blood Urea Nitrogen 30 #H 9-23 mg/dL Creatinine 2.91 H 0.550-1.02 mg/dL Glomerular Filtration Rate Calc 21 >90 mL/min BUN/Creatinine Ratio 10.3 10.0-20.0 Serum Glucose 98 74-106 mg/dL Calcium Level 7.4 L 8.7-10.4 mg/dL Iron Level 21 L 50-170 ug/dL Total Iron Binding Capacity 296 250-425 ug/dL Percent Iron Saturation 7.1 L 15-50 % Ferritin 109.3 10-291 ng/mL Total Bilirubin 8.6 H 0.2-1.0 mg/dL Aspartate Amino Transferase (AST) 297 H 13-40 U/L Alanine Aminotransferase (ALT) 108 H 7-40 U/L Alkaline Phosphatase 76 46-116 U/L Total Protein 8.5 H 5.7-8.2 g/dL Albumin 3.8 3.2-4.8 g/dL White Blood Count 23.5 #H 4.4-10.8 10^3/uL Red Blood Count 2.77 L 4.0-5.20 10^6/uL Hemoglobin 8.4 L 12.2-16.2 g/dL Hematocrit 26.4 #L 36.0-46.0 % Mean Corpuscular Volume 95.2 80.0-100.0 fL Mean Corpuscular Hemoglobin 30.3 28.0-32.0 pg Mean Corpuscular Hemoglobin Concent 31.8 L 32.0-36.0 g/dL Red Cell Distribution Width 23.5 H 11.8-14.3 % Platelet Count 136 L 140-450 10^3/uL Mean Platelet Volume 10.5 6.9-10.8 fL Neutrophils (%) (Auto) 37.0-80.0 % Lymphocytes (%) (Auto) 10.0-50.0 % Monocytes (%) (Auto) 0.0-12.0 % Basophils (%) (Auto) 0.0-2.0 % Neutrophils # (Auto) 1.6-8.6 10 ^3/uL Lymphocytes # (Auto) 0.4-5.4 10 ^3/uL Monocytes # (Auto) 0-1.3 10 ^3/uL Differential Total Cells Counted 100.0 100 Neutrophils % (Manual) 57 37.0-80.0 Band Neutrophils % (Manual) 8 Lymphocytes % (Manual) 18 10.0-50.0 Monocytes % (Manual) 17 H 0-12 Eosinophils % (Manual) 0 0-7 Basophils % (Manual) 0 0.0-2.0 Metamyelocytes % (manual) 0 Myelocytes % (Manual) 0 Promyelocytes % (Manual) 0 Blast Cells % (Manual) 0 Nucleated Red Blood Cells 2.0 % Reactive Lymphocytes 0 Platelet Estimate Decreased Large Platelets Few Anisocytosis (manual) Slight Test 03/08/25 09:00 03/08/25 08:32 03/07/25 23:00 03/07/25 22:05 Range/Units Urine Color Dark-yellow Yellow Urine Clarity Ex.turbid Clear Urine pH 6.0 5.0-9.0 Urine Specific [place] 1.018 1.001-1.035 Urine Protein 3+ H Negative Urine Ketones Negative Negative Urine Blood 3+ H Negative /uL Urine Nitrite Negative Negative Urine Bilirubin 1+ H Negative Urine Urobilinogen 2 H Negative mg/dL Urine Leukocyte Esterase 3+ Negative /uL Urine RBC 1880 0 - 4 /hpf Urine Microscopic WBC 321 H 0-5 /HPF Urine Squamous Epithelial Cells Mod <5 /hpf Urine Calcium Oxalate Crystals Few None Seen Urine Bacteria Mod H None Seen /hpf Urine Mucus Few None Seen Urine Glucose Trace Normal mg/dL Urine Opiates Screen Neg NEGATIVE Urine Fentanyl Screen Neg NEGATIVE Urine Barbiturates Screen Neg NEGATIVE Urine Phencyclidine Screen Neg NEGATIVE Urine Amphetamines Screen Neg NEGATIVE Urine Benzodiazepines Screen Neg NEGATIVE Urine Cocaine Screen Neg NEGATIVE Urine Cannabinoids Screen Neg NEGATIVE POC Glucose 101 70-106 mg/dl Influenza Type A Antigen Negative Negative Influenza Type B Antigen Negative Negative SARS-CoV-2 Antigen (Rapid) Negative NEGATIVE Free Thyroxine (T4) Calculated 0.92 0.89-1.76 ng/dL Total Triiodothyronine (TT3) 0.50 L 0.60-1.81 ng/mL Acetaminophen Level < 2.0 L 10.0-20.0 UG/ML Test 03/07/25 19:17 03/07/25 17:34 03/07/25 15:18 03/07/25 15:05 Range/Units Lactic Acid Level 4.5 *H 0.4-2.0 mmol/L Ammonia < 10 L 11-32 umol/L Eosinophils (%) (Auto) 0.1 0.0-7.0 % Eosinophils # (Auto) 0 0-0.8 10 ^3/uL Basophils # (Auto) 0.1 0-0.2 10 ^3/uL Erythrocyte Sedimentation Rate 99 H 0-20 mm/hr D-Dimer, Quantitative 7.12 H 0.0-0.49 mg/L FEU Hemoglobin A1c < 3.8 <5.7 % A1C Phosphorus Level 9.1 H 2.4-5.1 mg/dL Magnesium Level 1.9 1.6-2.6 mg/dL C-Reactive Protein High Sensitivity 1.80 H <1.0 mg/dL B-Type Natriuretic Peptide 1061.65 0-100 pg/mL Triglycerides Level 134 < 150 mg/dL Cholesterol Level 320 H < 200 mg/dL LDL Cholesterol 135 H < 100 mg/dL HDL Cholesterol 60 H 40-59 mg/dL Vitamin B12 Level > 2000 H 211-911 pg/mL Vitamin D 25-Hydroxy 12.2 L 30.0-100 ng/mL Thyroid Stimulating Hormone (TSH) 9.92 H 0.55-4.78 uIU/mL Beta HCG, Quantitative 0.1 L 1.5-4.2 mIU/mL Plasma/Serum Blood Alcohol < 3.0 <10 mg/dL Blood Gas Critical Value Read Back yes Blood Gas Notified Whom risk control manager devante Blood Gas Notified Time [id number] Blood Gas Notified By shelving supervisor andre Pendleton 03/06/25 04:46 03/05/25 00:18 Range/Units Prothrombin Time 17.0 H 9.3-11.8 sec Prothrombin Time INR 1.69 H 0.9-1.15 Activated Partial Thromboplast Time 32.0 24.5-34.5 SEC Troponin I High Sensitivity 32 </=34 ng/L Microbiology Date/Time Source Procedure Growth Status 03/07/25 18:40 Nose MRSA Screen - Final Complete Assessment Impression: Acute hypoxic respiratory failure Dependence on supplemental oxygen Pancytopenia Obesity, BMI 36.4 Shock Renal failure Plan: Supplemental oxygen Titrate to keep O2 sats above 92%. Currently on 13 LPM Oxymizer Taper O2 as tolerated. On pressors for hemodynamic support Levophed 20 mcg/min and Dc-Synephrine 180 mcg/min Titrate to keep mean arterial pressure greater than 65 mmHg. Bronchodilators. Antibiotics IV steroids Accu-Cheks, ISS PRN. Plan for hemodialysis today Nephrology recommendations appreciated. Monitor renal function. Monitor electrolytes. Supplement as necessary. Monitor ins and outs. Recommend diet and lifestyle modifications for weight reduction Obesity complicates all care GI/DVT prophylaxis. Prognosis: Poor given patient's multiple co-morbidities. Condition: Critical Rest of plan per hospitalist and other consultants. A total of 35 minutes of critical care time was spent reviewing the patient record, examining the patient, making a diagnostic and therapeutic plan, discussing this plan with the medical personnel, following up on diagnostic studies and following the patient for clinical stability excluding any and all procedures. At least 50% of this time was spent in direct, [id number] contact. Thank you, TYLER Maloney, for allowing me to participate in this patient's care. Further recommendations will depend on the patient's clinical course. Please do not hesitate to contact me if you have any questions or concerns. This medical document was created using an electronic medical record system with [employer] computerized dictation system. Although these documentations are being carefully reviewed, there may still be some phonetic and typographical changes. The errors are purely typographical, due to imperfection on the software program, and do not reflect any compromise in the patient's medical care. Plan discussed with: Patient, Other (ALEJO Jewell/TYLER Maloney/) Visit Coding Pulmonary Billing Provider: CHERYL MILLER MD Date of Service if different f: Mar 08, 2025 Common Visit Codes: [id number] INP/OBS CARE (HIGH), [id number] CARE 30- 74 MIN CHERYL MILLER MD Mar 08, 2025 22:13
[2025-03-08] MEDS: MORPHINE SULFATE INJ 2 MG/ml SYRG IV PRN (23:22)
[2025-03-09] VITALS (102 sets, daily range): BP systolic 96–146; BP diastolic 54–95; PULSE 75–113; RESP 12–23; TEMP 67.5–98.4; O2SAT 92–100
[2025-03-09 04:15] LABS: Potassium 4.7 mmol/L (3.5-5.1)
[2025-03-09 04:16] LABS: Anion Gap 18 (5-15); Carbon Dioxide 21 mmol/L (20-31)
[2025-03-09 04:20] LABS: Hematocrit 24.2 % (36.0-46.0); Hemoglobin 7.9 g/dL (12.2-16.2); Mean Corpuscular Hemoglobin 30.7 pg (28.0-32.0); Mean Corpuscular Volume 93.8 fL (80.0-100.0); Nucleated Red Blood Cells % 0.4 %
[2025-03-09 04:21] LABS: BUN/Creatinine Ratio 13.9 (10.0-20.0)
[2025-03-09 04:35] LABS: Blood Urea Nitrogen 42 mg/dL (9-23); Calcium 7.2 mg/dL (8.7-10.4); Chloride 92 mmol/L (98-107); Glucose 145 mg/dL (74-106); Sodium 131 mmol/L (136-145)
[2025-03-09 05:33] LABS: Anisocytosis Slight
[2025-03-09] MEDS: SODIUM CHL 0.9% 1000 ML BAG XX ONE (07:00)
--- NOTE | 2025-03-09 07:58 | DVH ---
Exam: US US GUIDED VASCULAR ACCESS Clinical History: central line placement Comparison: US BILAT LOWER DVT on DOS: 03/07/25, US ABDOMEN LIMITED on DOS: 03/06/25, US LIVER on DOS : 03/05/25 Technique: Targeted sonographic evaluation of the soft tissues of the right jugular vein was obtained utilizing grayscale and color Doppler imaging. Findings/Impression: Sonographic assistance for central line placement.
[2025-03-09 08:39] LABS: Hemoglobin 7.9 g/dL (12.2-16.2)
[2025-03-09 08:43] LABS: Hematocrit 23.6 % (36.0-46.0)
--- NOTE | 2025-03-09 08:52 | DVH ---
INDICATION: INCREASING OXYGEN DEMAND TECHNIQUE: Single frontal view of the chest was obtained COMPARISON: XY CHEST PORTABLE on DOS: 03/08/25, XY CHEST PORTABLE on DOS: 03/08/25, XY CHEST XRAY 1 V IEW on DOS: 03/07/25, XY CHEST PORTABLE on DOS: 03/04/25, XY CHEST PORTABLE on DOS: 03/08/25 FINDINGS: Lines and Tubes: Right central venous catheter tip in the cavoatrial junction Lungs: No focal consolidation. Pleura: No effusion. No pneumothorax. Cardiomediastinal contours: Stable cardiomegaly. Bones: No acute osseous abnormality. IMPRESSION: 1. No acute pulmonary disease. 2. Stable cardiomegaly.
--- NOTE | 2025-03-09 09:55 | DVHPN2 ---
Subjective Patient now with acute abdominal pain, inability to urinate. Reviewed: Care Plan, H&P, Labs, Medications, Previous Orders, Radiology Changes from previous H/P or p: No Changes General: Per HPI Objective Vitals Vital Signs Date Time Temp Pulse Resp B/P (MAP) Pulse Ox O2 Delivery O2 Flow Rate FiO2 03/09/25 06:45 96.8 79 18 134/74 (94) 95 206.2 03/09/25 06:37 Oxymizer 13.0 03/09/25 06:37 N/A Intake/Output Intake and Output 03/09/25 07:00 Intake Total 2466.569 ml Output Total 475 ml Balance 1991.569 ml IV Total 2466.569 ml Output Urine Total 475 ml General Appearance: Alert, Oriented X3, Cooperative, No acute distress HEENT: Atraumatic, PERRLA Lungs: Clear to auscultation, Normal air movement Cardiovascular: Normal S1, Normal S2 Abdomen: Normal bowel sounds, Soft, No tenderness Musculoskeletal: Normal sensory function, Normal motor function Neuro: Normal gait, Normal speech Skin: Dry, Intact Psych/Mental Status: Mental status NL, Mood NL Medications Current Medications Medications Dose Ordered Sig/Hugh Route Start Time Stop Time Status Last Admin Dose Admin Tramadol HCl 50 mg Q6HP PRN PO 03/05/25 00:00 03/07/25 13:25 50 MG Ondansetron HCl 4 mg Q4HPRN PRN IV 03/05/25 11:15 03/06/25 15:46 4 MG Pantoprazole Sodium 40 mg DAILY IV 03/08/25 10:00 03/08/25 11:06 40 MG Furosemide 40 mg BIDD IV 03/08/25 06:00 03/09/25 05:09 40 MG Methylprednisolone Sodium Succinate 40 mg DAILY IV 03/08/25 10:00 03/08/25 11:04 40 MG Ipratropium [place] 0.5 mg Q6HR NEB 03/08/25 12:00 03/09/25 06:37 0.5 MG Albuterol 2.5 mg Q6HR NEB 03/08/25 12:00 03/09/25 06:37 2.5 MG Meropenem 50 ml @ 17 mls/hr DAILY IV 03/09/25 10:00 Micafungin Sodium 100 mg/Sodium Chloride 100 ml @ 100 mls/hr DAILY IV 03/09/25 10:00 Enoxaparin Sodium 30 mg DAILY SC 03/09/25 10:00 Morphine Sulfate 1 mg Q3HP PRN IV 03/08/25 12:15 03/08/25 23:22 1 MG Phenylephrine HCl 80 mg/Sodium Chloride 250 ml @ 7.5 mls/hr Q24H IV 03/08/25 13:15 03/09/25 06:26 24.375 MLS/HR Vasopressin 20 units/Sodium Chloride 100 ml @ 9 mls/hr Q11H7M IV 03/08/25 15:30 Vancomycin HCl 0 ml @ 0 mls/hr PER PHARMACY IV 03/08/25 15:45 Norepinephrine Bitartrate 32 mg/ Sodium Chloride 250 ml @ 0.938 mls/ hr Q24H IV 03/08/25 15:45 03/08/25 18:04 9.375 MLS/HR Vancomycin HCl 250 ml @ 200 mls/hr Q36H IV 03/10/25 06:00 Laboratory Results Laboratory Tests 03/09/25 03:00 03/09/25 08:15 Chemistry Test 03/08/25 17:45 03/09/25 03:00 Albumin 3.8 g/dL (3.2-4.8) Calcium Level 7.4 mg/dL (8.7-10.4) L 7.2 mg/dL (8.7-10.4) L Total Protein 8.5 g/dL (5.7-8.2) H LFT Test 03/08/25 17:45 Alanine Aminotransferase (ALT) 108 U/L (7-40) H Alkaline Phosphatase 76 U/L (46-116) Aspartate Amino Transferase (AST) 297 U/L (13-40) H Total Bilirubin 8.6 mg/dL (0.2-1.0) H Urinalysis Test 03/08/25 09:00 Urine Color Dark-yellow (Yellow) Urine Clarity Ex.turbid (Clear) Urine pH 6.0 (5.0-9.0) Urine Specific [place] 1.018 (1.001-1.035) Urine Protein 3+ (Negative) H Urine Ketones Negative (Negative) Urine Blood 3+ /uL (Negative) H Urine Nitrite Negative (Negative) Urine Bilirubin 1+ (Negative) H Urine Urobilinogen 2 mg/dL (Negative) H Urine Leukocyte Esterase 3+ /uL (Negative) Urine RBC 1880 /hpf (0 - 4) Urine Microscopic WBC 321 /HPF (0-5) H Urine Squamous Epithelial Cells Mod /hpf (<5) Urine Calcium Oxalate Crystals Few (None Seen) Urine Bacteria Mod /hpf (None Seen) H Urine Mucus Few (None Seen) Urine Glucose Trace mg/dL (Normal) Blood Gas Results Test 03/08/25 18:06 Arterial Blood pH 7.416 (7.350-7.450) FiO2 % 82.0 Microbiology Microbiology Date/Time Source Procedure Growth Status 03/07/25 22:05 Blood Blood Culture - Preliminary NO GROWTH AFTER 24 HOURS OF INCUBATION. Resulted 03/07/25 18:40 Nose MRSA Screen - Final Complete Labs and/or images reviewed: Labs reviewed by me, Image(s) reviewed by me Assessment/Plan Assessment/Plan Impression: -cirrhosis of the liver -cardiomegaly -thrombocytopenia -acute respiratory failure -ruled out acute systolic heart failure -obesity -portal hypertension -probable RV failure with severe tricuspid regurgitation -acute hypoxic respiratory failure Plan: Events: HD catheter and Central Line catheter placed by myself. Received HD yesterday evening. Currently receiving hemodialysis. Decreased Vasopressor use. -continue vasopressor therapy with Dc-Synephrine and norepinephrine -PPI -Cardiology consult: May require FRANCISCO if positive blood culture -GI consult: Recommendations reviewed. -ABX broadened: Meropenem, Vancomycin, Micafungin -IVF per Nephrology -ABG, CMP, CBC in A.M. Critical care time spent with patient discussing and formulating plan of care: 40 minutes. This does not include time spent performing procedures. This medical document was created using an electronic medical record system with [employer] dictation system. Although this document has been carefully reviewed, there may still be some phonetic and typographical errors. These areas are purely typographical due to imperfections of the software programs, and do not reflect any compromise in the patient's medical care. Plan discussed with: Patient, Other (RN) My Orders Orders - TUCKER GROSS HEMATOLOGY SPECIALIST Procedure Category Date Status Time Ipratropium Medneb PHA 03/08/25 In Process (Atrovent Medneb) 12:00 Albuterol Medneb PHA 03/08/25 In Process (Ventolin Medneb) 12:00 Meropenem 500mg Ivpb PHA 03/09/25 In Process (Merrem 500mg/50ml 10:00 Micafungin Sodium PHA 03/09/25 In Process (Mycamine) 10:00 Enoxaparin Sodium PHA 03/09/25 In Process (Lovenox) 10:00 Morphine Sulfate PHA 03/08/25 In Process Injection 12:15 Sodium Chl 0.9% PHA 03/08/25 In Process (Ns... 13:15 Chest Portable XY 03/08/25 Resulted 13:17 Communication Order ORDERS 03/08/25 Transmitted 13:50 Vancomycin Per PHA 03/08/25 In Process Pharmacy 15:45 Sodium Chl 0.9% PHA 03/08/25 In Process (Ns... 15:45 Abg W/ Co-Ox RT 03/08/25 Logged 17:00 Vancomycin Per PEDRO 03/08/25 In Process Pharmacy Protoc 17:04 Chest Portable XY 03/09/25 Resulted 04:00 Complete Blood Count LAB 03/10/25 Verified 05:00 Complete Blood Count LAB 03/11/25 Verified 05:00 Complete Blood Count LAB 03/12/25 Verified 05:00 Complete Blood Count LAB 03/13/25 Verified 05:00 Comprehensive LAB 03/10/25 Verified Metabolic Panel 05:00 Comprehensive LAB 03/11/25 Verified Metabolic Panel 05:00 Comprehensive LAB 03/12/25 Verified Metabolic Panel 05:00 Comprehensive LAB 03/13/25 Verified Metabolic Panel 05:00 Chest Xray 1 View XY 03/10/25 Logged 05:00 Chest Xray 1 View XY 03/11/25 Logged 05:00 Chest Xray 1 View XY 03/12/25 Logged 05:00 Chest Xray 1 View XY 03/13/25 Logged 05:00 Vancomycin PHA 03/10/25 In Process 1.25gm/250ml 06:00 Vancomycin Per PEDRO 03/09/25 In Process Pharmacy Protoc 18:00 Vancomycin,Trough LAB 03/12/25 Verified 05:00 Date of Service: Mar 09, 2025 Billing Provider: TUCKER GROSS NP Common Visit Codes: [id number] CARE 30-74 MIN TUCKER GROSS NP Mar 09, 2025 09:55
--- NOTE | 2025-03-09 10:09 | DVHPNRES ---
Progress Note Date Seen: Mar 09, 2025 Resident Creating Document: AVIVA XAVIER RESIDENT Medical Necessity Reason Pt with a Central, PICC or Fol: Yes The following are medically ne: Central Line, Stokes Catheter Subjective Review of Systems Amada Aldridge is a 39-year-old female patient who presents to the ED with chief complaint of abdominal distention and leg swelling which started approximately one week before her admission associated with dyspnea, oppressive epigastric pain in Functional Class III worsened by exertion with fluctuating intensity and reduce urine output which started the day of her admission prompting visit to the ED. Patient reports history of alcoholic liver cirrhosis and history of congestive heart failure with an enlarged heart. Patient reports last episode of recurrence in drinking approximately one month ago. She also takes Tylenol twice a day due to abdominal pain. Denies fever, chills, sick contacts, nausea, vomiting, diarrhea and recent travel. 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 Ex ethanol abuse (one bottle of hard liquor a day) she quit one month ago. Denies current tobacco, alcohol and other drug abuse Allergies: Denies Home medication: Tylenol Patient seen and examined at bedside. Patient currently in ICU status with bicarbonate drip and IV vasopressors, on hemodialysis at this point, patient has poor prognosis Objective vital signs Vital Sign Date Time Temp Pulse Resp B/P (MAP) Pulse Ox O2 Delivery O2 Flow Rate FiO2 03/09/25 09:45 97.3 84 15 114/67 (83) 98 207.1 03/09/25 06:37 Oxymizer 13.0 03/09/25 06:37 N/A Total Intake and Output 03/08/25 03/08/25 03/09/25 15:00 23:00 07:00 Intake Total 1503.75 ml 733.128 ml 262.504 ml Output Total 75 ml 400 ml Balance 1503.75 ml 658.128 ml -137.496 ml medications Current Medications Medications Dose Ordered Sig/Hugh Route Start Time Stop Time Status Last Admin Dose Admin Tramadol HCl 50 mg Q6HP PRN PO 10/20/25 00:00 03/07/25 13:25 50 MG Ondansetron HCl 4 mg Q4HPRN PRN IV 03/05/25 11:15 03/06/25 15:46 4 MG Pantoprazole Sodium 40 mg DAILY IV 03/08/25 10:00 03/08/25 11:06 40 MG Furosemide 40 mg BIDD IV 03/08/25 06:00 03/09/25 05:09 40 MG Methylprednisolone Sodium Succinate 40 mg DAILY IV 03/08/25 10:00 03/08/25 11:04 40 MG Ipratropium [place] 0.5 mg Q6HR NEB 03/08/25 12:00 03/09/25 06:37 0.5 MG Albuterol 2.5 mg Q6HR NEB 03/08/25 12:00 03/09/25 06:37 2.5 MG Meropenem 50 ml @ 17 mls/hr DAILY IV 03/09/25 10:00 Micafungin Sodium 100 mg/Sodium Chloride 100 ml @ 100 mls/hr DAILY IV 03/09/25 10:00 Enoxaparin Sodium 30 mg DAILY SC 03/09/25 10:00 Morphine Sulfate 1 mg Q3HP PRN IV 03/08/25 12:15 03/08/25 23:22 1 MG Phenylephrine HCl 80 mg/Sodium Chloride 250 ml @ 7.5 mls/hr Q24H IV 03/08/25 13:15 03/09/25 06:26 24.375 MLS/HR Vasopressin 20 units/Sodium Chloride 100 ml @ 9 mls/hr Q11H7M IV 03/08/25 15:30 Vancomycin HCl 0 ml @ 0 mls/hr PER PHARMACY IV 03/08/25 15:45 Norepinephrine Bitartrate 32 mg/ Sodium Chloride 250 ml @ 0.938 mls/ hr Q24H IV 03/08/25 15:45 03/08/25 18:04 9.375 MLS/HR Vancomycin HCl 250 ml @ 200 mls/hr Q36H IV 03/10/25 06:00 Examination Patient lying in bed, in mild acute distress General: Lucid, afebrile, mucosae are moist, jaundice, conjunctivae are icteric Cardiovascular: Normal S1 and S2. Holosystolic murmur best heard in left lower parasternal border intensity 4/6 does not radiate towards axilla. No gallops or rubs Respiratory: Regular ventilation mechanics, tachypnea. Bibasilar rales, rest of auscultation is clear. Currently patient is on Oxymizer 10 L/min Abdomen: Soft but mildly distended, mild tenderness when palpating epigastrium rest of abdomen is nontender, no organomegaly, normal bowel sounds MSK/skin: Mobilizes 4 limbs. Skin is dry and warm. Bilateral lower limb pitting edema Neurological: Oriented in 3 spheres. No motor no sensitive deficits. Pupils are isocoric and reactive laboratory and microbiology Laboratory Tests 03/09/25 08:15 03/09/25 03:00 Test 03/09/25 03:00 Range/Units Serum Glucose 145 H 74-106 mg/dL Microbiology Date/Time Source Procedure Growth Status 03/07/25 22:05 Blood Blood Culture - Preliminary NO GROWTH AFTER 24 HOURS OF INCUBATION. Resulted 03/07/25 18:40 Nose MRSA Screen - Final Complete Problem List/Assessment/Plan Problem List/Assessment/Plan Assessment Acute hypoxic respiratory failure Acute on chronic diastolic congestive heart failure (HFpEF, LVEF 50%) Right ventricular heart failure Probable pulmonary hypertension Severe tricuspid regurgitation Small pericardial effusion Septic shock probably secondary to spontaneous bacterial peritonitis vs UTI Complicated UTI Decompensated alcoholic liver cirrhosis Hepatorenal syndrome AVA hemodynamically mediated (VMN) Portal hypertension Metabolic acidosis with increased anion gap probably secondary to hyperlacticacidemia Hyperkalemia Normocytic anemia Thrombocytopenia Subclinical hypothyroidism Dyslipidemia Vitamin-D deficiency Obese Plan/Recommendation Patient completed echo which showed LVEF 50%, severe RV enlargement with failure, RA enlarged, severe tricuspid regurgitation small pericardial effusion circumferential and posterior with no hemodynamic compromise. Ordered EKG, troponin are negative x3 (32-32-32), BNP is elevated (above a 1000). Patient is anuric for over 48 hours, despite IV diuretics. On hemodialysis since 03/09/2025 Strict I&Os Patient could have probable pulmonary hypertension in the context of portal hypertension (group one). For correct diagnosis would have to complete right heart catheterization. Could be done once patient is stable or as outpatient. V/Q scan completed which reports low probability of PE Patient currently on Oxymizer at 10 L/min. Patient currently in septic shock, probably secondary to spontaneous bacterial peritonitis in the context of decompensated liver cirrhosis with increased meld score and hepatorenal syndrome. (hypotension, tachypnea, leukocytosis and increased lactic acid), patient also has increased inflammatory markers. Patient is on phenylephrine. Ordered brown cultures (blood, urine and sputum). Patient has mild ascites, could not obtain paracentesis for ascitic fluid culture. GI specialist on board indicating steroids. Ordered UDS. Tylenol and alcohol levels are negative Rest of management per primary team (IV antibiotics, IV vasopressors, bicarbonate drip and upgraded to ICU status) Appreciate Nephrology input: Will hold off on FRANCISCO at this time since patient is not intubated, her blood cultures are negative and her TR was diagnosed previously. Patient is high risk of having esophageal varices, FRANCISCO could cause variceal bleeding. Evaluate risk benefit with patient. Goals of care discussed with patient for over 18 minutes: Full code status Discussed plan with Dr. Peres, patient and nurses: Currently in ICU status due to requirement of IV vasopressors and bicarbonate drip. Refractory to IV diuretics, patient on hemodialysis. Strict I&Os. V/Q scan reports low probability of PE. If patient keeps deteriorated consider mechanical assisted ventilation and inotropic support (with Milrinone). Evaluate risk/benefit of FRANCISCO. Patient has poor prognosis Critical care time spent including discussion with nursing and family, excluding procedures: 79 minutes Plan discussed with: Patient, Other (Nurses) Dietary Evaluation Review Comments: Nutrition Recommendation 1) Cardiac + 2gm K msoft diet 2) Consider Ensure high protein 240ml TID if PO intake < 50% 3) Monitor PO intake, lab values, weight trend, and I/O Expected Outcomes/Goals: Lab values to improve Fu 3-5 days Visit Coding Cardiology RES Date of Service: Mar 09, 2025 Billing Provider: GABRIEL PERES Sr., MD Cardiology Common Codes: 08865-[id number] HOSP CARE(High Cardiology Secondary Visit Cod: [id number] CARE PLAN 30 MINUTES AVIVA XAVIER RESIDENT Mar 09, 2025 10:09
[2025-03-09] MEDS: ENOXAPARIN SOD 30 MG/0.3 ML SYRINGE SC SCH (10:43)
[2025-03-09 12:02] LABS: Hepatitis B Surface Antigen Negative (Negative); Hepatitis C Antibody Negative (Negative)
[2025-03-09] MEDS: MICAFUNGIN SODIUM 100 MG in SODIUM CHL 0.9% 100 ML IV SCH (12:26)
[2025-03-09 12:37] LABS: Base Excess 3.2 mmol/L (-2.0-3.0)
--- NOTE | 2025-03-09 13:33 | DVHPN2 ---
Progress Note Date Seen: Mar 09, 2025 Medical Necessity Reason Pt with a Central, PICC or Fol: Yes The following are medically ne: Central Line, Stokes Catheter Subjective Patient reports: Other (lethargic) Review of Systems: Deferred Objective vital signs Vital Sign Date Time Temp Pulse Resp B/P (MAP) Pulse Ox O2 Delivery O2 Flow Rate FiO2 03/09/25 12:16 90 16 98 03/09/25 12:10 Oxymizer 8 N/A 03/09/25 09:45 97.3 114/67 (83) 207.1 Total Intake and Output 03/08/25 03/08/25 03/09/25 15:00 23:00 07:00 Intake Total 1503.75 ml 733.128 ml 262.504 ml Output Total 75 ml 400 ml Balance 1503.75 ml 658.128 ml -137.496 ml medications Current Medications Medications Dose Ordered Sig/Hugh Route Start Time Stop Time Status Last Admin Dose Admin Tramadol HCl 50 mg Q6HP PRN PO 03/05/25 00:00 03/07/25 13:25 50 MG Ondansetron HCl 4 mg Q4HPRN PRN IV 03/05/25 11:15 03/06/25 15:46 4 MG Pantoprazole Sodium 40 mg DAILY IV 03/08/25 10:00 03/09/25 12:25 40 MG Furosemide 40 mg BIDD IV 03/08/25 06:00 03/09/25 05:09 40 MG Methylprednisolone Sodium Succinate 40 mg DAILY IV 03/08/25 10:00 03/09/25 12:25 40 MG Ipratropium [place] 0.5 mg Q6HR NEB 03/08/25 12:00 03/09/25 12:10 0.5 MG Albuterol 2.5 mg Q6HR NEB 03/08/25 12:00 03/09/25 12:10 2.5 MG Meropenem 50 ml @ 17 mls/hr DAILY IV 03/09/25 10:00 Micafungin Sodium 100 mg/Sodium Chloride 100 ml @ 100 mls/hr DAILY IV 03/09/25 10:00 03/09/25 12:26 100 MLS/HR Enoxaparin Sodium 30 mg DAILY SC 03/09/25 10:00 03/09/25 10:43 30 MG Morphine Sulfate 1 mg Q3HP PRN IV 03/08/25 12:15 03/08/25 23:22 1 MG Phenylephrine HCl 80 mg/Sodium Chloride 250 ml @ 7.5 mls/hr Q24H IV 03/08/25 13:15 03/09/25 06:26 24.375 MLS/HR Vasopressin 20 units/Sodium Chloride 100 ml @ 9 mls/hr Q11H7M IV 03/08/25 15:30 Vancomycin HCl 0 ml @ 0 mls/hr PER PHARMACY IV 03/08/25 15:45 Norepinephrine Bitartrate 32 mg/ Sodium Chloride 250 ml @ 0.938 mls/ hr Q24H IV 03/08/25 15:45 03/08/25 18:04 9.375 MLS/HR Vancomycin HCl 250 ml @ 200 mls/hr Q36H IV 03/10/25 06:00 Examination: GENERAL:Abnormal, MSK:Normal, NEURO:Abnormal laboratory and microbiology Laboratory Tests 03/09/25 08:15 03/09/25 03:00 Test 03/09/25 03:00 Range/Units Serum Glucose 145 H 74-106 mg/dL Microbiology Date/Time Source Procedure Growth Status 03/08/25 12:54 Voided Urine Urine Culture - Preliminary Resulted 03/07/25 22:05 Blood Blood Culture - Preliminary NO GROWTH AFTER 24 HOURS OF INCUBATION. Resulted 03/07/25 18:40 Nose MRSA Screen - Final Complete Problem List/Assessment/Plan Problem List/Assessment/Plan Acute kidney injury hemodynamically mediated -due to severe anuric failure and failed course of diuretics recommend hemodialysis treatment, HD 10-24--uf 1 L off ETOH cirrhosis -elevated AST, recommend urine drug screen, albumin IV -hyperbilirubinemia anemia noted defer management to primary medical team and Gastroenterology RV failure with severe tricuspid disease -monitor hemodynamics avoid hypotension recommend maintain mean arterial pressure greater than 65 with pressors Cardiology Anemia, thrombocytopenia, coagulopathy this is likely in the setting of cirrhosis -conservative management transfusions as per hospital protocols septic shock Positive urinalysis recommend broad-spectrum antibiotics and renal dose of antibiotics for GFR less than 15% Hyponatremia - Critically ill with high-risk of clinical decline Plan discussed with: Patient, Other Dietary Evaluation Review Comments: Nutrition Recommendation 1) Cardiac + 2gm K msoft diet 2) Consider Ensure high protein 240ml TID if PO intake < 50% 3) Monitor PO intake, lab values, weight trend, and I/O Expected Outcomes/Goals: Lab values to improve Fu 3-5 days MARCELLA MONTAÑO MD Mar 09, 2025 13:33
[2025-03-09] MEDS: MEROPENEM 500MG IVPB 50 ML IV SCH (14:07)
--- NOTE | 2025-03-09 16:58 | DVHPN2 ---
Progress Note Date Seen: Mar 09, 2025 Resident Creating Document: FAY FELIZ RESIDENT Medical Necessity Reason Pt with a Central, PICC or Fol: Yes The following are medically ne: Central Line, Stokes Catheter Subjective Review of Systems Reports abdominal pain is better Respiratory distress but decreased oxygen requirement Continues to need vasopressor support LFTs trended down Objective vital signs Vital Sign Date Time Temp Pulse Resp B/P (MAP) Pulse Ox O2 Delivery O2 Flow Rate FiO2 03/09/25 14:45 98.4 88 20 141/85 (103) 97 209.1 03/09/25 12:10 Oxymizer 8 N/A Total Intake and Output 03/08/25 03/08/25 03/09/25 15:00 23:00 07:00 Intake Total 1503.75 ml 733.128 ml 262.504 ml Output Total 75 ml 400 ml Balance 1503.75 ml 658.128 ml -137.496 ml medications Current Medications Medications Dose Ordered Sig/Hugh Route Start Time Stop Time Status Last Admin Dose Admin Tramadol HCl 50 mg Q6HP PRN PO 03/05/25 00:00 03/07/25 13:25 50 MG Ondansetron HCl 4 mg Q4HPRN PRN IV 03/05/25 11:15 03/06/25 15:46 4 MG Pantoprazole Sodium 40 mg DAILY IV 03/08/25 10:00 03/09/25 12:25 40 MG Furosemide 40 mg BIDD IV 03/08/25 06:00 03/09/25 05:09 40 MG Methylprednisolone Sodium Succinate 40 mg DAILY IV 03/08/25 10:00 03/09/25 12:25 40 MG Ipratropium [place] 0.5 mg Q6HR NEB 03/08/25 12:00 03/09/25 12:10 0.5 MG Albuterol 2.5 mg Q6HR NEB 03/08/25 12:00 03/09/25 12:10 2.5 MG Meropenem 50 ml @ 17 mls/hr DAILY IV 03/09/25 10:00 03/09/25 14:07 17 MLS/HR Micafungin Sodium 100 mg/Sodium Chloride 100 ml @ 100 mls/hr DAILY IV 03/09/25 10:00 03/09/25 12:26 100 MLS/HR Enoxaparin Sodium 30 mg DAILY SC 03/09/25 10:00 03/09/25 10:43 30 MG Morphine Sulfate 1 mg Q3HP PRN IV 03/08/25 12:15 03/08/25 23:22 1 MG Phenylephrine HCl 80 mg/Sodium Chloride 250 ml @ 7.5 mls/hr Q24H IV 03/08/25 13:15 03/09/25 16:25 10.313 MLS/HR Vasopressin 20 units/Sodium Chloride 100 ml @ 9 mls/hr Q11H7M IV 03/08/25 15:30 Vancomycin HCl 0 ml @ 0 mls/hr PER PHARMACY IV 03/08/25 15:45 Norepinephrine Bitartrate 32 mg/ Sodium Chloride 250 ml @ 0.938 mls/ hr Q24H IV 03/08/25 15:45 03/09/25 16:28 4.688 MLS/HR Vancomycin HCl 250 ml @ 200 mls/hr Q36H IV 03/10/25 06:00 Examination Gen - no pallor, scleral icterus present Skin - Patients skin is warm and dry. HEENT - normocephalic, atraumatic, dry mucous membranes. Neck - supple, no lymphadenopathy Pulmonary - B/L equal air entry with diminished breath sounds cardiovascular - regular S1,S2 heard GI - abdomen distended, nontender. Bowel sounds normoactive. Neurological - Patient is alert and oriented x3. No motor or sensory weakness laboratory and microbiology Laboratory Tests 03/09/25 08:15 03/09/25 03:00 Test 03/09/25 03:00 Range/Units Serum Glucose 145 H 74-106 mg/dL Microbiology Date/Time Source Procedure Growth Status 03/08/25 12:54 Voided Urine Urine Culture - Preliminary Resulted 03/07/25 22:05 Blood Blood Culture - Preliminary NO GROWTH AFTER 24 HOURS OF INCUBATION. Resulted 03/07/25 18:40 Nose MRSA Screen - Final Complete Problem List/Assessment/Plan Problem List/Assessment/Plan Assessment Liver cirrhosis likely alcoholic, meld Na 35 Possible acute cholecystitis Alcoholic liver disease, MDF 41 Acute hypoxic respiratory failure Right heart failure Pericardial effusion Plan - given high MDF, patient will benefit from steroid with prednisolone 40 mg daily - Protonix 40 mg daily IV - elevated MELD Na, 90 day mortality 65% - monitor liver functions Very Poor prognosis discussed with the family Rest of the management as per primary team Plan discussed with Dr. Pathak Plan discussed with: Patient, Other (RN Chuyita) Dietary Evaluation Review Comments: Nutrition Recommendation 1) Cardiac + 2gm K msoft diet 2) Consider Ensure high protein 240ml TID if PO intake < 50% 3) Monitor PO intake, lab values, weight trend, and I/O Expected Outcomes/Goals: Lab values to improve Fu 3-5 days FAY FELIZ RESIDENT Mar 09, 2025 16:58
--- NOTE | 2025-03-09 22:59 | DVHPN2 ---
Subjective DOS: 03/09/2025 Patient seen and examined at bedside. Remains on supplemental oxygen Overnight events reviewed. Reviewed: Care Plan, H&P, Labs, Medications, Previous Orders, Radiology Changes from previous H/P or p: No Changes General: Per HPI Objective Vitals Vital Signs Date Time Temp Pulse Resp B/P (MAP) Pulse Ox O2 Delivery O2 Flow Rate FiO2 03/09/25 22:08 112 20 120/75 03/09/25 22:00 93 Nasal Cannula* 4 36 03/09/25 16:00 98.2 98.2 Intake/Output Intake and Output 03/09/25 07:00 Intake Total 2499.382 ml Output Total 475 ml Balance 2024.382 ml IV Total 2499.382 ml Output Urine Total 475 ml General Appearance: Alert, Oriented X3, Cooperative, No acute distress HEENT: Atraumatic, PERRLA Lungs: Clear to auscultation, Other (Decreased air entry bilaterally) Cardiovascular: Normal S1, Normal S2 Abdomen: Normal bowel sounds, Soft, No tenderness Musculoskeletal: Normal sensory function, Normal motor function Neuro: Normal gait, Normal speech Skin: Dry, Intact Psych/Mental Status: Mental status NL, Mood NL Medications Current Medications Medications Dose Ordered Sig/Hugh Route Start Time Stop Time Status Last Admin Dose Admin Tramadol HCl 50 mg Q6HP PRN PO 03/05/25 00:00 03/07/25 13:25 50 MG Ondansetron HCl 4 mg Q4HPRN PRN IV 03/05/25 11:15 03/06/25 15:46 4 MG Pantoprazole Sodium 40 mg DAILY IV 03/08/25 10:00 03/09/25 12:25 40 MG Furosemide 40 mg BIDD IV 03/08/25 06:00 03/09/25 05:09 40 MG Methylprednisolone Sodium Succinate 40 mg DAILY IV 03/08/25 10:00 03/09/25 12:25 40 MG Ipratropium [place] 0.5 mg Q6HR NEB 03/08/25 12:00 03/09/25 19:01 0.5 MG Albuterol 2.5 mg Q6HR NEB 03/08/25 12:00 03/09/25 19:01 2.5 MG Meropenem 50 ml @ 17 mls/hr DAILY IV 03/09/25 10:00 03/09/25 14:07 17 MLS/HR Micafungin Sodium 100 mg/Sodium Chloride 100 ml @ 100 mls/hr DAILY IV 03/09/25 10:00 03/09/25 12:26 100 MLS/HR Enoxaparin Sodium 30 mg DAILY SC 03/09/25 10:00 03/09/25 10:43 30 MG Morphine Sulfate 1 mg Q3HP PRN IV 03/08/25 12:15 03/09/25 22:08 1 MG Phenylephrine HCl 80 mg/Sodium Chloride 250 ml @ 7.5 mls/hr Q24H IV 03/08/25 13:15 03/09/25 16:25 10.313 MLS/HR Vasopressin 20 units/Sodium Chloride 100 ml @ 9 mls/hr Q11H7M IV 03/08/25 15:30 Vancomycin HCl 0 ml @ 0 mls/hr PER PHARMACY IV 03/08/25 15:45 Norepinephrine Bitartrate 32 mg/ Sodium Chloride 250 ml @ 0.938 mls/ hr Q24H IV 03/08/25 15:45 03/09/25 16:28 4.688 MLS/HR Vancomycin HCl 250 ml @ 200 mls/hr Q36H IV 03/10/25 06:00 Laboratory Results Laboratory Tests 03/09/25 03:00 03/09/25 08:15 Chemistry Test 03/09/25 03:00 Calcium Level 7.2 mg/dL (8.7-10.4) L Urinalysis Test 03/08/25 09:00 Urine Color Dark-yellow (Yellow) Urine Clarity Ex.turbid (Clear) Urine pH 6.0 (5.0-9.0) Urine Specific [place] 1.018 (1.001-1.035) Urine Protein 3+ (Negative) H Urine Ketones Negative (Negative) Urine Blood 3+ /uL (Negative) H Urine Nitrite Negative (Negative) Urine Bilirubin 1+ (Negative) H Urine Urobilinogen 2 mg/dL (Negative) H Urine Leukocyte Esterase 3+ /uL (Negative) Urine RBC 1880 /hpf (0 - 4) Urine Microscopic WBC 321 /HPF (0-5) H Urine Squamous Epithelial Cells Mod /hpf (<5) Urine Calcium Oxalate Crystals Few (None Seen) Urine Bacteria Mod /hpf (None Seen) H Urine Mucus Few (None Seen) Urine Glucose Trace mg/dL (Normal) Blood Gas Results Test 03/09/25 12:26 Arterial Blood pH 7.491 (7.350-7.450) FiO2 % 50.0 Microbiology Microbiology Date/Time Source Procedure Growth Status 03/08/25 12:54 Voided Urine Urine Culture - Preliminary Resulted 03/07/25 22:05 Blood Blood Culture - Preliminary NO GROWTH AFTER 48 HOURS OF INCUBATION. Resulted 03/07/25 18:40 Nose MRSA Screen - Final Complete Assessment/Plan Assessment/Plan Impression: Acute hypoxic respiratory failure Dependence on supplemental oxygen Pancytopenia Obesity, BMI 36.4 Shock Renal failure Events: Remains on supplemental oxygen, 4 LPM NC Improved O2 requirements, continue to taper as tolerated On pressors for hemodynamic support Levophed 10 mcg/min Titrate to keep mean arterial pressure greater than 65 mmHg. Improved pressor requirements, off Dc-Synephrine. HD today, removed 1 liter Nephrology recs appreciated. Continue bronchodilators Continue steroids Continue antibiotics Patient with poor prognosis Labs and imaging reviewed. Rest of plan as noted below. Plan: Supplemental oxygen Titrate to keep O2 sats above 92%. On pressors for hemodynamic support Titrate to keep mean arterial pressure greater than 65 mmHg. Bronchodilators. Antibiotics IV steroids Accu-Cheks, ISS PRN. Hemodialysis per Nephrology F/u Nephrology recommendations Monitor renal function. Monitor electrolytes. Supplement as necessary. Monitor ins and outs. Obesity complicates all care GI/DVT prophylaxis. Prognosis: Poor given patient's multiple co-morbidities. Condition: Critical Rest of plan per hospitalist and other consultants. A total of 35 minutes of critical care time was spent reviewing the patient record, examining the patient, making a diagnostic and therapeutic plan, discussing this plan with the medical personnel, following up on diagnostic studies and following the patient for clinical stability excluding any and all procedures. At least 50% of this time was spent in direct, [id number] contact. Thank you, TYLER Maloney, for allowing me to participate in this patient's care. Further recommendations will depend on the patient's clinical course. Please do not hesitate to contact me if you have any questions or concerns. This medical document was created using an electronic medical record system with [employer] dictation system. Although these documentations are being carefully reviewed, there may still be some phonetic and typographical changes. The errors are purely typographical, due to imperfection on the software program, and do not reflect any compromise in the patient's medical care. Plan discussed with: Patient, Other (RN Ehsan) Visit Coding Pulmonary Billing Provider: CHERYL MILLER MD Date of Service if different f: Mar 09, 2025 Common Visit Codes: 59480-[id number] INP/OBS CARE(HIGH), 99939-[id number] CARE 30-74 MIN CHERYL MILLER MD Mar 09, 2025 22:59
[2025-03-10] VITALS (109 sets, daily range): BP systolic 97–146; BP diastolic 49–106; PULSE 18–115; RESP 10–27; TEMP 96–97.5; O2SAT 89–100
[2025-03-10 03:05] LABS: Hematocrit 20.7 % (36.0-46.0); Mean Corpuscular Hemoglobin 30.5 pg (28.0-32.0); Mean Corpuscular Volume 91.5 fL (80.0-100.0); Nucleated Red Blood Cells % 0.4 %
[2025-03-10 03:10] LABS: Hemoglobin 6.9 g/dL (12.2-16.2)
[2025-03-10 03:12] LABS: Albumin 3.2 g/dL (3.2-4.8); Alkaline Phosphatase 75 U/L (46-116); Anion Gap 13 (5-15); BUN/Creatinine Ratio 21.6 (10.0-20.0); Carbon Dioxide 29 mmol/L (20-31); Total Protein 7.6 g/dL (5.7-8.2)
[2025-03-10 03:13] LABS: Alanine Aminotransferase 148 U/L (7-40); Bilirubin, Total 8.2 mg/dL (0.2-1.0); Blood Urea Nitrogen 29 mg/dL (9-23); Calcium 7.0 mg/dL (8.7-10.4); Chloride 94 mmol/L (98-107); Glucose 131 mg/dL (74-106); Potassium 3.3 mmol/L (3.5-5.1); Sodium 136 mmol/L (136-145)
--- NOTE | 2025-03-10 06:23 | DVH ---
CHEST RADIOGRAPH Indication: chf Technique: Single frontal view of the chest was obtained COMPARISON: XY CHEST PORTABLE on DOS: 03/09/25, XY CHEST PORTABLE on DOS: 03/08/25, XY CHEST PORTABLE on DOS: 03/08/25, XY CHEST XRAY 1 VIEW on DOS: 03/07/25, XY CHEST PORTABLE on DOS: 03/04/25 FINDINGS: Lines and Tubes: Right internal jugular central venous catheter unchanged. Lungs: Clear Pleura: No effusion. No pneumothorax. Cardiomediastinal contours: Cardiomegaly. Bones: Unremarkable IMPRESSION: 1. Cardiomegaly. 2. Right IJ catheter.
[2025-03-10] MEDS: POTASSIUM CHL 20MEQ/100ML 100 ML IV ONE ×2 (06:27→16:57)
[2025-03-10] MEDS: VANCOMYCIN 1.25GM/250ML 250 ML IV SCH (06:34)
--- NOTE | 2025-03-10 07:28 | DVHPN2 ---
Subjective Patient reports generalized body aches Reviewed: Care Plan, H&P, Labs, Medications, Previous Orders, Radiology Changes from previous H/P or p: No Changes General: Per HPI Objective Vitals Vital Signs Date Time Temp Pulse Resp B/P (MAP) Pulse Ox O2 Delivery O2 Flow Rate FiO2 03/10/25 06:55 119/82 03/10/25 06:31 84 17 100 03/10/25 06:25 Nasal Cannula* 4 36 03/10/25 06:13 97.0 97.0 Intake/Output Intake and Output 03/10/25 07:00 Intake Total 841.676 ml Output Total 2900 ml Balance -2058.324 ml Intake Oral 250 ml IV Total 591.676 ml Output Urine Total 2900 ml General Appearance: Alert, Oriented X3, Cooperative, No acute distress HEENT: Atraumatic, PERRLA Lungs: Clear to auscultation, Normal air movement Cardiovascular: Normal S1, Normal S2 Abdomen: Normal bowel sounds, Soft, No tenderness Musculoskeletal: Normal sensory function, Normal motor function Neuro: Normal gait, Normal speech Skin: Dry, Intact Psych/Mental Status: Mental status NL, Mood NL Medications Current Medications Medications Dose Ordered Sig/Hugh Route Start Time Stop Time Status Last Admin Dose Admin Tramadol HCl 50 mg Q6HP PRN PO 03/05/25 00:00 03/07/25 13:25 50 MG Ondansetron HCl 4 mg Q4HPRN PRN IV 03/05/25 11:15 03/06/25 15:46 4 MG Pantoprazole Sodium 40 mg DAILY IV 03/08/25 10:00 03/09/25 12:25 40 MG Furosemide 40 mg BIDD IV 03/08/25 06:00 03/10/25 06:55 40 MG Methylprednisolone Sodium Succinate 40 mg DAILY IV 03/08/25 10:00 03/09/25 12:25 40 MG Ipratropium [place] 0.5 mg Q6HR NEB 03/08/25 12:00 03/10/25 06:25 0.5 MG Albuterol 2.5 mg Q6HR NEB 03/08/25 12:00 03/10/25 06:25 2.5 MG Meropenem 50 ml @ 17 mls/hr DAILY IV 03/09/25 10:00 03/09/25 14:07 17 MLS/HR Micafungin Sodium 100 mg/Sodium Chloride 100 ml @ 100 mls/hr DAILY IV 03/09/25 10:00 03/09/25 12:26 100 MLS/HR Enoxaparin Sodium 30 mg DAILY SC 03/09/25 10:00 03/09/25 10:43 30 MG Morphine Sulfate 1 mg Q3HP PRN IV 03/08/25 12:15 03/10/25 02:41 1 MG Phenylephrine HCl 80 mg/Sodium Chloride 250 ml @ 7.5 mls/hr Q24H IV 03/08/25 13:15 03/09/25 16:25 10.313 MLS/HR Vasopressin 20 units/Sodium Chloride 100 ml @ 9 mls/hr Q11H7M IV 03/08/25 15:30 Vancomycin HCl 0 ml @ 0 mls/hr PER PHARMACY IV 03/08/25 15:45 Norepinephrine Bitartrate 32 mg/ Sodium Chloride 250 ml @ 0.938 mls/ hr Q24H IV 03/08/25 15:45 03/09/25 16:28 4.688 MLS/HR Vancomycin HCl 250 ml @ 200 mls/hr Q36H IV 03/10/25 06:00 03/10/25 06:34 200 MLS/HR Laboratory Results Laboratory Tests 03/10/25 02:30 Chemistry Test 03/10/25 02:30 Albumin 3.2 g/dL (3.2-4.8) Calcium Level 7.0 mg/dL (8.7-10.4) L Total Protein 7.6 g/dL (5.7-8.2) LFT Test 03/10/25 02:30 Alanine Aminotransferase (ALT) 148 U/L (7-40) H Alkaline Phosphatase 75 U/L (46-116) Aspartate Amino Transferase (AST) 399 U/L (13-40) H Total Bilirubin 8.2 mg/dL (0.2-1.0) H Urinalysis Test 03/08/25 09:00 Urine Color Dark-yellow (Yellow) Urine Clarity Ex.turbid (Clear) Urine pH 6.0 (5.0-9.0) Urine Specific [place] 1.018 (1.001-1.035) Urine Protein 3+ (Negative) H Urine Ketones Negative (Negative) Urine Blood 3+ /uL (Negative) H Urine Nitrite Negative (Negative) Urine Bilirubin 1+ (Negative) H Urine Urobilinogen 2 mg/dL (Negative) H Urine Leukocyte Esterase 3+ /uL (Negative) Urine RBC 1880 /hpf (0 - 4) Urine Microscopic WBC 321 /HPF (0-5) H Urine Squamous Epithelial Cells Mod /hpf (<5) Urine Calcium Oxalate Crystals Few (None Seen) Urine Bacteria Mod /hpf (None Seen) H Urine Mucus Few (None Seen) Urine Glucose Trace mg/dL (Normal) Blood Gas Results Test 03/09/25 12:26 Arterial Blood pH 7.491 (7.350-7.450) FiO2 % 50.0 Microbiology Microbiology Date/Time Source Procedure Growth Status 03/08/25 12:54 Voided Urine Urine Culture - Preliminary Resulted 03/07/25 22:05 Blood Blood Culture - Preliminary NO GROWTH AFTER 48 HOURS OF INCUBATION. Resulted 03/07/25 18:40 Nose MRSA Screen - Final Complete Labs and/or images reviewed: Labs reviewed by me, Image(s) reviewed by me Assessment/Plan Assessment/Plan Impression: -cirrhosis of the liver -cardiomegaly -thrombocytopenia -acute respiratory failure -ruled out acute systolic heart failure -obesity -portal hypertension -probable RV failure with severe tricuspid regurgitation -acute hypoxic respiratory failure -Complicated Cystitis Plan: Events: Patient off Vasopressors. NC at 2lpm, Worsening anemia. Improved Urine output -K replacement. -PRBC transfusion -PPI -Cardiology consult: May require FRANCISCO if positive blood culture -Positive gram negative rods in urine -GI consult: Recommendations reviewed. -ABX broadened: Meropenem, Vancomycin, Micafungin (continue until final cultures) -IVF per Nephrology -ABG, CMP, CBC in A.M. Critical care time spent with patient discussing and formulating plan of care: 40 minutes. This does not include time spent performing procedures. This medical document was created using an electronic medical record system with [employer] dictation system. Although this document has been carefully reviewed, there may still be some phonetic and typographical errors. These areas are purely typographical due to imperfections of the software programs, and do not reflect any compromise in the patient's medical care. Plan discussed with: Patient, Other (RN) My Orders Orders - TUCKER GROSS NP Procedure Category Date Status Time Complete Blood Count LAB 03/11/25 Verified 05:00 Complete Blood Count LAB 03/12/25 Verified 05:00 Complete Blood Count LAB 03/13/25 Verified 05:00 Comprehensive LAB 03/11/25 Verified Metabolic Panel 05:00 Comprehensive LAB 03/12/25 Verified Metabolic Panel 05:00 Comprehensive LAB 03/13/25 Verified Metabolic Panel 05:00 Chest Xray 1 View XY 03/10/25 Resulted 05:00 Chest Xray 1 View XY 03/11/25 Logged 05:00 Chest Xray 1 View XY 03/12/25 Logged 05:00 Chest Xray 1 View XY 03/13/25 Logged 05:00 Vancomycin PHA 03/10/25 In Process 1.25gm/250ml 06:00 Vancomycin Per PEDRO 03/09/25 In Process Pharmacy Protoc 18:00 Vancomycin,Trough LAB 03/12/25 Verified 05:00 Sequential PEDRO 03/10/25 Verified Compression Device 07:23 Complete Blood Count LAB 03/10/25 Verified 12:00 Basic Metabolic Panel LAB 03/10/25 Verified 14:00 Date of Service: Mar 10, 2025 Billing Provider: TUCKER GROSS NP Common Visit Codes: [id number] CARE 30-74 MIN TUCKER GROSS NP Mar 10, 2025 07:28
[2025-03-10 13:03] LABS: Hemoglobin 7.9 g/dL (12.2-16.2); Mean Corpuscular Volume 91.4 fL (80.0-100.0)
[2025-03-10 13:06] LABS: Hematocrit 23.4 % (36.0-46.0); Mean Corpuscular Hemoglobin 31.1 pg (28.0-32.0); Nucleated Red Blood Cells % 0.1 %
--- NOTE | 2025-03-10 14:43 | DVHPN2 ---
Progress Note Date Seen: Mar 10, 2025 Medical Necessity Reason Pt with a Central, PICC or Fol: Yes The following are medically ne: Central Line, Stokes Catheter Subjective Patient reports: Other (Complaints of generalized body pain / back pain) Review of Systems: MSK:Abnormal Objective vital signs Vital Sign Date Time Temp Pulse Resp B/P (MAP) Pulse Ox O2 Delivery O2 Flow Rate FiO2 03/10/25 12:57 92 19 120/76 03/10/25 12:45 96.8 98 206.2 03/10/25 12:00 Nasal Cannula* 4 36 Total Intake and Output 03/09/25 03/09/25 03/10/25 15:00 23:00 07:00 Intake Total 515.776 ml 75.90 ml 250 ml Output Total 900 ml 2000 ml Balance 515.776 ml -824.10 ml -1750 ml medications Current Medications Medications Dose Ordered Sig/Hugh Route Start Time Stop Time Status Last Admin Dose Admin Tramadol HCl 50 mg Q6HP PRN PO 03/05/25 00:00 03/10/25 10:58 50 MG Ondansetron HCl 4 mg Q4HPRN PRN IV 03/05/25 11:15 03/06/25 15:46 4 MG Pantoprazole Sodium 40 mg DAILY IV 03/08/25 10:00 03/10/25 08:32 40 MG Furosemide 40 mg BIDD IV 03/08/25 06:00 03/10/25 06:55 40 MG Methylprednisolone Sodium Succinate 40 mg DAILY IV 03/08/25 10:00 03/10/25 08:32 40 MG Ipratropium [place] 0.5 mg Q6HR NEB 03/08/25 12:00 03/10/25 11:28 0.5 MG Albuterol 2.5 mg Q6HR NEB 03/08/25 12:00 03/10/25 11:28 2.5 MG Meropenem 50 ml @ 17 mls/hr DAILY IV 03/09/25 10:00 03/10/25 08:32 17 MLS/HR Micafungin Sodium 100 mg/Sodium Chloride 100 ml @ 100 mls/hr DAILY IV 03/09/25 10:00 03/10/25 08:35 100 MLS/HR Enoxaparin Sodium 30 mg DAILY SC 03/09/25 10:00 03/09/25 10:43 30 MG Morphine Sulfate 1 mg Q3HP PRN IV 03/08/25 12:15 03/10/25 12:27 1 MG Phenylephrine HCl 80 mg/Sodium Chloride 250 ml @ 7.5 mls/hr Q24H IV 03/08/25 13:15 03/09/25 16:25 10.313 MLS/HR Vasopressin 20 units/Sodium Chloride 100 ml @ 9 mls/hr Q11H7M IV 03/08/25 15:30 Vancomycin HCl 0 ml @ 0 mls/hr PER PHARMACY IV 03/08/25 15:45 Norepinephrine Bitartrate 32 mg/ Sodium Chloride 250 ml @ 0.938 mls/ hr Q24H IV 03/08/25 15:45 03/09/25 16:28 4.688 MLS/HR Vancomycin HCl 250 ml @ 200 mls/hr Q36H IV 03/10/25 06:00 03/10/25 06:34 200 MLS/HR Examination: GENERAL:Normal, HEENT:Normal, NECK:Normal, LUNGS:Abnormal, CVS:Normal, ABDOMEN:Normal, MSK:Abnormal, SKIN:Normal, NEURO:Normal, :Normal laboratory and microbiology Laboratory Tests 03/10/25 12:20 03/10/25 02:30 Test 03/10/25 02:30 Range/Units Serum Glucose 131 H 74-106 mg/dL Microbiology Date/Time Source Procedure Growth Status 03/08/25 12:54 Voided Urine Urine Culture - Preliminary Resulted 03/07/25 22:05 Blood Blood Culture - Preliminary NO GROWTH AFTER 48 HOURS OF INCUBATION. Resulted 03/07/25 18:40 Nose MRSA Screen - Final Complete Problem List/Assessment/Plan Problem List/Assessment/Plan Acute kidney injury hemodynamically mediated -due to severe anuric failure and failed course of diuretics started on h emodialysis treatment, HD 03-09--uf 1 L off Hold dialysis monitor for signs of renal recovery urine output 2 L last night On Lasix twice daily ETOH cirrhosis -elevated AST, recommend urine drug screen, albumin IV -hyperbilirubinemia anemia noted defer management to primary medical team and Gastroenterology RV failure with severe tricuspid disease Anemia, thrombocytopenia, coagulopathy this is likely in the setting of cirrhosis -conservative management transfusions as per hospital protocols septic shock Antibiotics Hyponatremia - Critically ill with high-risk of clinical decline Plan discussed with: Patient Dietary Evaluation Review Comments: Nutrition Recommendation 1) Cardiac + 2gm K msoft diet 2) Consider Ensure high protein 240ml TID if PO intake < 50% 3) Monitor PO intake, lab values, weight trend, and I/O Expected Outcomes/Goals: Lab values to improve Fu 3-5 days Critical Care Time (mins): 36 MARCELLA MONTAÑO MD Mar 10, 2025 14:43
[2025-03-10 15:03] LABS: Anion Gap 14 (5-15); Carbon Dioxide 27 mmol/L (20-31)
[2025-03-10 15:08] LABS: BUN/Creatinine Ratio 25.4 (10.0-20.0)
[2025-03-10 15:09] LABS: Blood Urea Nitrogen 31 mg/dL (9-23); Calcium 7.0 mg/dL (8.7-10.4); Chloride 93 mmol/L (98-107); Glucose 190 mg/dL (74-106); Potassium 3.4 mmol/L (3.5-5.1); Sodium 134 mmol/L (136-145)
--- NOTE | 2025-03-10 16:33 | DVHPNRES ---
Progress Note Date Seen: Mar 10, 2025 Resident Creating Document: FRIDA BARKLEY RESIDENT Medical Necessity Reason Pt with a Central, PICC or Fol: Yes The following are medically ne: Central Line, Stokes Catheter Subjective Review of Systems Amada Aldridge is a 39-year-old female patient who presents to the ED with chief complaint of abdominal distention and leg swelling which started approximately one week before her admission associated with dyspnea, oppressive epigastric pain in Functional Class III worsened by exertion with fluctuating intensity and reduce urine output which started the day of her admission prompting visit to the ED. Patient reports history of alcoholic liver cirrhosis and history of congestive heart failure with an enlarged heart. Patient reports last episode of recurrence in drinking approximately one month ago. She also takes Tylenol twice a day due to abdominal pain. Denies fever, chills, sick contacts, nausea, vomiting, diarrhea and recent travel. 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 Ex ethanol abuse (one bottle of hard liquor a day) she quit one month ago. Denies current tobacco, alcohol and other drug abuse Allergies: Denies Home medication: Tylenol Patient seen and examined at bedside. Patient currently in ICU status w/o pressors, hb 6.9, 1 rbc given, on HD, good urinary output on lasix BID Objective vital signs Vital Sign Date Time Temp Pulse Resp B/P (MAP) Pulse Ox O2 Delivery O2 Flow Rate FiO2 03/10/25 12:57 92 19 120/76 03/10/25 12:45 96.8 98 206.2 03/10/25 12:00 Nasal Cannula* 4 36 Total Intake and Output 03/09/25 03/09/25 03/10/25 15:00 23:00 07:00 Intake Total 515.776 ml 75.90 ml 250 ml Output Total 900 ml 2000 ml Balance 515.776 ml -824.10 ml -1750 ml medications Current Medications Medications Dose Ordered Sig/Hugh Route Start Time Stop Time Status Last Admin Dose Admin Tramadol HCl 50 mg Q6HP PRN PO 03/05/25 00:00 03/10/25 10:58 50 MG Ondansetron HCl 4 mg Q4HPRN PRN IV 03/05/25 11:15 03/06/25 15:46 4 MG Pantoprazole Sodium 40 mg DAILY IV 03/08/25 10:00 03/10/25 08:32 40 MG Furosemide 40 mg BIDD IV 03/08/25 06:00 03/10/25 06:55 40 MG Methylprednisolone Sodium Succinate 40 mg DAILY IV 03/08/25 10:00 03/10/25 08:32 40 MG Ipratropium [place] 0.5 mg Q6HR NEB 03/08/25 12:00 03/10/25 11:28 0.5 MG Albuterol 2.5 mg Q6HR NEB 03/08/25 12:00 03/10/25 11:28 2.5 MG Meropenem 50 ml @ 17 mls/hr DAILY IV 03/09/25 10:00 03/10/25 08:32 17 MLS/HR Micafungin Sodium 100 mg/Sodium Chloride 100 ml @ 100 mls/hr DAILY IV 03/09/25 10:00 03/10/25 08:35 100 MLS/HR Enoxaparin Sodium 30 mg DAILY SC 03/09/25 10:00 03/09/25 10:43 30 MG Morphine Sulfate 1 mg Q3HP PRN IV 03/08/25 12:15 03/10/25 12:27 1 MG Phenylephrine HCl 80 mg/Sodium Chloride 250 ml @ 7.5 mls/hr Q24H IV 03/08/25 13:15 03/09/25 16:25 10.313 MLS/HR Vasopressin 20 units/Sodium Chloride 100 ml @ 9 mls/hr Q11H7M IV 03/08/25 15:30 Vancomycin HCl 0 ml @ 0 mls/hr PER PHARMACY IV 03/08/25 15:45 Norepinephrine Bitartrate 32 mg/ Sodium Chloride 250 ml @ 0.938 mls/ hr Q24H IV 03/08/25 15:45 03/09/25 16:28 4.688 MLS/HR Vancomycin HCl 250 ml @ 200 mls/hr Q36H IV 03/10/25 06:00 03/10/25 06:34 200 MLS/HR Examination Patient lying in bed, in mild acute distress General: Lucid, afebrile, mucosae are moist, jaundice, conjunctivae are icteric Cardiovascular: Normal S1 and S2. Holosystolic murmur best heard in left lower parasternal border intensity 4/6 does not radiate towards axilla. No gallops or rubs Respiratory: Regular ventilation mechanics, tachypnea. Bibasilar rales, rest of auscultation is clear. Currently patient is on 2 lt o2 Abdomen: Soft but mildly distended, normal bowel sounds MSK/skin: Mobilizes 4 limbs. Skin is dry and warm. Bilateral lower limb pitting edema Neurological: Oriented in 3 spheres. No motor no sensitive deficits. Pupils are isocoric and reactive laboratory and microbiology Laboratory Tests 03/10/25 14:35 03/10/25 12:20 Test 03/10/25 14:35 Range/Units Serum Glucose 190 H 74-106 mg/dL Microbiology Date/Time Source Procedure Growth Status 03/08/25 12:54 Voided Urine Urine Culture - Preliminary Resulted 03/07/25 22:05 Blood Blood Culture - Preliminary NO GROWTH AFTER 48 HOURS OF INCUBATION. Resulted 03/07/25 18:40 Nose MRSA Screen - Final Complete Problem List/Assessment/Plan Problem List/Assessment/Plan Acute hypoxic respiratory failure Acute on chronic diastolic congestive heart failure (HFpEF, LVEF 50%) Right ventricular heart failure Probable pulmonary hypertension Severe tricuspid regurgitation Small pericardial effusion Septic shock probably secondary to spontaneous bacterial peritonitis vs UTI Complicated UTI Decompensated alcoholic liver cirrhosis Hepatorenal syndrome AVA hemodynamically mediated (VMN) Portal hypertension Metabolic acidosis with increased anion gap probably secondary to hyperlacticacidemia Hyperkalemia Normocytic anemia Thrombocytopenia Subclinical hypothyroidism Dyslipidemia Vitamin-D deficiency Obese Plan/Recommendation Patient completed echo which showed LVEF 50%, severe RV enlargement with failure, RA enlarged, severe tricuspid regurgitation small pericardial effusion circumferential and posterior with no hemodynamic compromise. Ordered EKG, troponin are negative x3 (32-32-32), BNP is elevated (above a 1000). Better urinary output Strict I&Os Patient could have probable pulmonary hypertension in the context of portal hypertension (group one). For correct diagnosis would have to complete right heart catheterization. Could be done once patient is stable or as outpatient. V/Q scan completed which reports low probability of PE Patient currently on o2 2 lt Patient currently in septic shock resolving probably [place] source GI specialist on board indicating steroids. Rest of management per primary team Appreciate Nephrology input: Will hold off on FRANCISCO at this time since patient is not intubated, her blood cultures are negative and her TR was diagnosed previously. Patient is high risk of having esophageal varices, FRANCISCO could cause variceal bleeding. Evaluate risk benefit with patient. Goals of care discussed with patient for over 18 minutes: Full code status Discussed plan with Dr. Peres Critical care time spent including discussion with nursing and family, excluding procedures: 79 minutes Plan discussed with: Patient, Other (rn) Dietary Evaluation Review Comments: Nutrition Recommendation 1) Cardiac + 2gm K msoft diet 2) Consider Ensure high protein 240ml TID if PO intake < 50% 3) Monitor PO intake, lab values, weight trend, and I/O Expected Outcomes/Goals: Lab values to improve Fu 3-5 days Visit Coding Cardiology RES Date of Service: Mar 10, 2025 Billing Provider: GABRIEL PERES Sr., MD, MARIA RESIDENT Mar 10, 2025 16:33
--- NOTE | 2025-03-10 22:13 | DVHPN2 ---
Subjective DOS: 03/10/2025 Patient seen and examined at bedside. Remains on supplemental oxygen Overnight events reviewed. Reviewed: Care Plan, H&P, Labs, Medications, Previous Orders, Radiology Changes from previous H/P or p: No Changes General: Per HPI Objective Vitals Vital Signs Date Time Temp Pulse Resp B/P (MAP) Pulse Ox O2 Delivery O2 Flow Rate FiO2 03/10/25 19:49 90 21 100 03/10/25 19:43 Nasal Cannula* 2 28 03/10/25 19:00 97.2 136/90 (105) 207.0 Intake/Output Intake and Output 03/10/25 07:00 Intake Total 841.676 ml Output Total 2900 ml Balance -2058.324 ml Intake Oral 250 ml IV Total 591.676 ml Output Urine Total 2900 ml General Appearance: Alert, Oriented X3, Cooperative, No acute distress HEENT: Atraumatic, PERRLA Lungs: Clear to auscultation, Other (Decreased air entry bilaterally) Cardiovascular: Normal S1, Normal S2 Abdomen: Normal bowel sounds, Soft, No tenderness Musculoskeletal: Normal sensory function, Normal motor function Neuro: Normal gait, Normal speech Skin: Dry, Intact Psych/Mental Status: Mental status NL, Mood NL Medications Current Medications Medications Dose Ordered Sig/Hugh Route Start Time Stop Time Status Last Admin Dose Admin Tramadol HCl 50 mg Q6HP PRN PO 03/05/25 00:00 03/10/25 21:16 50 MG Ondansetron HCl 4 mg Q4HPRN PRN IV 03/05/25 11:15 03/06/25 15:46 4 MG Pantoprazole Sodium 40 mg DAILY IV 03/08/25 10:00 03/10/25 08:32 40 MG Furosemide 40 mg BIDD IV 03/08/25 06:00 03/10/25 17:19 40 MG Methylprednisolone Sodium Succinate 40 mg DAILY IV 03/08/25 10:00 03/10/25 08:32 40 MG Ipratropium [place] 0.5 mg Q6HR NEB 03/08/25 12:00 03/10/25 19:43 0.5 MG Albuterol 2.5 mg Q6HR NEB 03/08/25 12:00 03/10/25 19:43 2.5 MG Meropenem 50 ml @ 17 mls/hr DAILY IV 03/09/25 10:00 03/10/25 08:32 17 MLS/HR Micafungin Sodium 100 mg/Sodium Chloride 100 ml @ 100 mls/hr DAILY IV 03/09/25 10:00 03/10/25 08:35 100 MLS/HR Enoxaparin Sodium 30 mg DAILY SC 03/09/25 10:00 03/09/25 10:43 30 MG Morphine Sulfate 1 mg Q3HP PRN IV 03/08/25 12:15 03/10/25 12:27 1 MG Phenylephrine HCl 80 mg/Sodium Chloride 250 ml @ 7.5 mls/hr Q24H IV 03/08/25 13:15 03/09/25 16:25 10.313 MLS/HR Vasopressin 20 units/Sodium Chloride 100 ml @ 9 mls/hr Q11H7M IV 03/08/25 15:30 Vancomycin HCl 0 ml @ 0 mls/hr PER PHARMACY IV 03/08/25 15:45 Norepinephrine Bitartrate 32 mg/ Sodium Chloride 250 ml @ 0.938 mls/ hr Q24H IV 03/08/25 15:45 03/09/25 16:28 4.688 MLS/HR Laboratory Results Laboratory Tests 03/10/25 12:20 03/10/25 14:35 Chemistry Test 03/10/25 02:30 03/10/25 14:35 Albumin 3.2 g/dL (3.2-4.8) Calcium Level 7.0 mg/dL (8.7-10.4) L 7.0 mg/dL (8.7-10.4) L Total Protein 7.6 g/dL (5.7-8.2) LFT Test 03/10/25 02:30 Alanine Aminotransferase (ALT) 148 U/L (7-40) H Alkaline Phosphatase 75 U/L (46-116) Aspartate Amino Transferase (AST) 399 U/L (13-40) H Total Bilirubin 8.2 mg/dL (0.2-1.0) H Urinalysis Test 03/08/25 09:00 Urine Color Dark-yellow (Yellow) Urine Clarity Ex.turbid (Clear) Urine pH 6.0 (5.0-9.0) Urine Specific [place] 1.018 (1.001-1.035) Urine Protein 3+ (Negative) H Urine Ketones Negative (Negative) Urine Blood 3+ /uL (Negative) H Urine Nitrite Negative (Negative) Urine Bilirubin 1+ (Negative) H Urine Urobilinogen 2 mg/dL (Negative) H Urine Leukocyte Esterase 3+ /uL (Negative) Urine RBC 1880 /hpf (0 - 4) Urine Microscopic WBC 321 /HPF (0-5) H Urine Squamous Epithelial Cells Mod /hpf (<5) Urine Calcium Oxalate Crystals Few (None Seen) Urine Bacteria Mod /hpf (None Seen) H Urine Mucus Few (None Seen) Urine Glucose Trace mg/dL (Normal) Microbiology Microbiology Date/Time Source Procedure Growth Status 03/08/25 12:54 Voided Urine Urine Culture - Preliminary Resulted 03/07/25 22:05 Blood Blood Culture - Preliminary NO GROWTH AFTER 48 HOURS OF INCUBATION. Resulted 03/07/25 18:40 Nose MRSA Screen - Final Complete Assessment/Plan Assessment/Plan Impression: Acute hypoxic respiratory failure Dependence on supplemental oxygen Pancytopenia Obesity, BMI 36.4 Shock Renal failure Events: Remains on supplemental oxygen, 3 LPM NC Improved O2 requirements, continue to taper as tolerated S/p hemodialysis today Nephrology recs appreciated. Continue diuresis with Lasix Monitor renal function Continue bronchodilators Continue steroids Continue antibiotics Hemoglobin trended down to 6.9 g/dL S/p PRBC transfusion Continue to monitor hemoglobin closely HOB elevation Aspiration precautions Patient with poor prognosis Labs and imaging reviewed. Rest of plan as noted below. Plan: Supplemental oxygen Titrate to keep O2 sats above 92%. Pressors as necessary for hemodynamic support Titrate to keep mean arterial pressure greater than 65 mmHg. Bronchodilators. Antibiotics IV steroids Accu-Cheks, ISS PRN. Hemodialysis per Nephrology F/u Nephrology recommendations Monitor renal function. Monitor electrolytes. Supplement as necessary. Monitor ins and outs. Obesity complicates all care GI/DVT prophylaxis. Prognosis: Poor given patient's multiple co-morbidities. Condition: Critical Rest of plan per hospitalist and other consultants. A total of 35 minutes of critical care time was spent reviewing the patient record, examining the patient, making a diagnostic and therapeutic plan, discussing this plan with the medical personnel, following up on diagnostic studies and following the patient for clinical stability excluding any and all procedures. At least 50% of this time was spent in direct, [id number] contact. Thank you, TYLER Maloney, for allowing me to participate in this patient's care. Further recommendations will depend on the patient's clinical course. Please do not hesitate to contact me if you have any questions or concerns. This medical document was created using an electronic medical record system with [employer] dictation system. Although these documentations are being carefully reviewed, there may still be some phonetic and typographical changes. The errors are purely typographical, due to imperfection on the software program, and do not reflect any compromise in the patient's medical care. Plan discussed with: Patient, Other (ALEJO Torrez) Visit Coding Pulmonary Billing Provider: CHERYL MILLER MD Date of Service if different f: Mar 10, 2025 Common Visit Codes: [id number] INP/OBS CARE(HIGH), [id number] CARE 30-74 MIN CHERYL MILLER MD Mar 10, 2025 22:13
[2025-03-11] VITALS (107 sets, daily range): BP systolic 111–146; BP diastolic 76–115; PULSE 80–122; RESP 10–27; TEMP 96.3–98.4; O2SAT 90–100
[2025-03-11 03:55] LABS: Anion Gap 14 (5-15); Carbon Dioxide 28 mmol/L (20-31)
[2025-03-11 03:57] LABS: Hematocrit 22.9 % (36.0-46.0); Hemoglobin 7.8 g/dL (12.2-16.2); Mean Corpuscular Hemoglobin 31.0 pg (28.0-32.0); Mean Corpuscular Volume 91.5 fL (80.0-100.0); Nucleated Red Blood Cells % 0.3 %
[2025-03-11 03:59] LABS: Alkaline Phosphatase 84 U/L (46-116)
[2025-03-11 04:01] LABS: BUN/Creatinine Ratio 31.0 (10.0-20.0); Total Protein 7.6 g/dL (5.7-8.2)
[2025-03-11 04:02] LABS: Albumin 3.3 g/dL (3.2-4.8)
[2025-03-11 04:07] LABS: Bilirubin, Total 7.6 mg/dL (0.2-1.0); Blood Urea Nitrogen 31 mg/dL (9-23); Calcium 7.6 mg/dL (8.7-10.4); Chloride 93 mmol/L (98-107); Glucose 141 mg/dL (74-106); Potassium 3.4 mmol/L (3.5-5.1); Sodium 135 mmol/L (136-145)
[2025-03-11 04:34] LABS: Alanine Aminotransferase 201 U/L (7-40)
[2025-03-11] MEDS: POTASSIUM CHL 20MEQ/100ML 100 ML IV ONE (04:58)
--- NOTE | 2025-03-11 07:12 | DVH ---
CHEST RADIOGRAPH Indication: chf Technique: Single frontal view of the chest was obtained Comparison: XY CHEST XRAY 1 VIEW on DOS: 03/10/25, XY CHEST PORTABLE on DOS: 03/09/25, XY CHEST LUCI BLE on DOS: 03/08/25 IMPRESSION: Cardiac silhouette is enlarged. Right IJ catheter tip in the region of the cavoatrial junction. No s izable effusion or pneumothorax. No significant interval change. Correlate with echocardiogram. HS:Y
--- NOTE | 2025-03-11 07:14 | DVHPNRES ---
Progress Note Date Seen: Mar 11, 2025 Resident Creating Document: AVIVA XAVIER RESIDENT Medical Necessity Reason Pt with a Central, PICC or Fol: Yes The following are medically ne: Central Line, Stokes Catheter Subjective Review of Systems Amada Aldridge is a 39-year-old female patient who presents to the ED with chief complaint of abdominal distention and leg swelling which started approximately one week before her admission associated with dyspnea, oppressive epigastric pain in Functional Class III worsened by exertion with fluctuating intensity and reduce urine output which started the day of her admission prompting visit to the ED. Patient reports history of alcoholic liver cirrhosis and history of congestive heart failure with an enlarged heart. Patient reports last episode of recurrence in drinking approximately one month ago. She also takes Tylenol twice a day due to abdominal pain. Denies fever, chills, sick contacts, nausea, vomiting, diarrhea and recent travel. 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 Ex ethanol abuse (one bottle of hard liquor a day) she quit one month ago. Denies current tobacco, alcohol and other drug abuse Allergies: Denies Home medication: Tylenol Patient seen and examined at bedside. Patient currently in ICU status w/o pressors and no mechanical assisted ventilation, on HD sessions Objective vital signs Vital Sign Date Time Temp Pulse Resp B/P (MAP) Pulse Ox O2 Delivery O2 Flow Rate FiO2 03/11/25 07:00 109 14 138/99 (112) 96 03/11/25 06:00 Nasal Cannula* 2 28 03/11/25 04:30 97.6 97.6 Total Intake and Output 03/10/25 03/10/25 03/11/25 15:00 23:00 07:00 Intake Total 940 ml 580 ml 350 ml Output Total 750 ml 1200 ml Balance 940 ml -170 ml -850 ml medications Current Medications Medications Dose Ordered Sig/Hugh Route Start Time Stop Time Status Last Admin Dose Admin Tramadol HCl 50 mg Q6HP PRN PO 03/05/25 00:00 03/11/25 04:10 50 MG Ondansetron HCl 4 mg Q4HPRN PRN IV 03/05/25 11:15 03/06/25 15:46 4 MG Pantoprazole Sodium 40 mg DAILY IV 03/08/25 10:00 03/10/25 08:32 40 MG Furosemide 40 mg BIDD IV 03/08/25 06:00 03/11/25 05:58 40 MG Methylprednisolone Sodium Succinate 40 mg DAILY IV 03/08/25 10:00 03/10/25 08:32 40 MG Ipratropium [place] 0.5 mg Q6HR NEB 03/08/25 12:00 03/11/25 06:51 0.5 MG Albuterol 2.5 mg Q6HR NEB 03/08/25 12:00 03/11/25 06:51 2.5 MG Meropenem 50 ml @ 17 mls/hr DAILY IV 03/09/25 10:00 03/10/25 08:32 17 MLS/HR Micafungin Sodium 100 mg/Sodium Chloride 100 ml @ 100 mls/hr DAILY IV 03/09/25 10:00 03/10/25 08:35 100 MLS/HR Enoxaparin Sodium 30 mg DAILY SC 03/09/25 10:00 03/09/25 10:43 30 MG Morphine Sulfate 1 mg Q3HP PRN IV 03/08/25 12:15 03/11/25 05:59 1 MG Phenylephrine HCl 80 mg/Sodium Chloride 250 ml @ 7.5 mls/hr Q24H IV 03/08/25 13:15 03/09/25 16:25 10.313 MLS/HR Vasopressin 20 units/Sodium Chloride 100 ml @ 9 mls/hr Q11H7M IV 03/08/25 15:30 Vancomycin HCl 0 ml @ 0 mls/hr PER PHARMACY IV 03/08/25 15:45 Norepinephrine Bitartrate 32 mg/ Sodium Chloride 250 ml @ 0.938 mls/ hr Q24H IV 03/08/25 15:45 03/09/25 16:28 4.688 MLS/HR Examination Patient lying in bed, in mild acute distress General: Lucid, afebrile, mucosae are moist, jaundice, conjunctivae are icteric Cardiovascular: Normal S1 and S2. Holosystolic murmur best heard in left lower parasternal border intensity 4/6 does not radiate towards axilla. No gallops or rubs Respiratory: Regular ventilation mechanics, tachypnea. Bibasilar rales, rest of auscultation is clear. Currently patient is on 2 lt o2 Abdomen: Soft but mildly distended, normal bowel sounds MSK/skin: Mobilizes 4 limbs. Skin is dry and warm. Bilateral lower limb pitting edema Neurological: Oriented in 3 spheres. No motor no sensitive deficits. Pupils are isocoric and reactive laboratory and microbiology Laboratory Tests 03/11/25 03:07 Test 03/11/25 03:07 Range/Units Serum Glucose 141 H 74-106 mg/dL Microbiology Date/Time Source Procedure Growth Status 03/08/25 12:54 Voided Urine Urine Culture - Preliminary Resulted 03/07/25 22:05 Blood Blood Culture - Preliminary NO GROWTH AFTER 72 HOURS OF INCUBATION. Resulted 03/07/25 18:40 Nose MRSA Screen - Final Complete Problem List/Assessment/Plan Problem List/Assessment/Plan Assessment Acute hypoxic respiratory failure Acute on chronic diastolic congestive heart failure (HFpEF, LVEF 50%) Right ventricular heart failure Probable pulmonary hypertension Severe tricuspid regurgitation Small pericardial effusion Septic shock probably secondary to spontaneous bacterial peritonitis vs UTI Complicated UTI Decompensated alcoholic liver cirrhosis Hepatorenal syndrome AVA hemodynamically mediated (VMN) Portal hypertension Metabolic acidosis with increased anion gap probably secondary to hyperlacticacidemia Hyperkalemia Normocytic anemia Severe anemia status post transfusion one PRBC Thrombocytopenia Subclinical hypothyroidism Dyslipidemia Vitamin-D deficiency Obese Plan/Recommendation Patient completed echo which showed LVEF 50%, severe RV enlargement with failure, RA enlarged, severe tricuspid regurgitation small pericardial effusion circumferential and posterior with no hemodynamic compromise. Ordered EKG, troponin are negative x3 (32-32-32), BNP is elevated (above a 1000). Better urinary output Strict I&Os Patient could have probable pulmonary hypertension in the context of portal hypertension (group one). For correct diagnosis would have to complete right heart catheterization. Could be done once patient is stable or as outpatient. V/Q scan completed which reports low probability of PE Patient currently on o2 2 lt Patient currently in septic shock resolving probably [place] source GI specialist on board indicating steroids. Rest of management per primary team Patient require one PRBC during hospitalization. Awaiting anemia workup Appreciate Nephrology input: Will hold off on FRANCISCO at this time since patient is not intubated, her blood cultures are negative and her TR was diagnosed previously. Patient is high risk of having esophageal varices, FRANCISCO could cause variceal bleeding. Evaluate risk benefit with patient. Goals of care discussed with patient for over 18 minutes: Full code status Discussed plan with Dr. Peres, patient and nurses: Patient required two sessions of hemodialysis, currently she is urinating with IV diuretics (furosemide 40 mg IV b.i.d.). Suspect Patient's hemodynamic instability was secondary to urosepsis, currently resolving with broad-spectrum IV antibiotics. Have discussed with primary team, we will hold off at this time from FRANCISCO due to risk benefit. Patient required one PRBC on 03/10/2025, recommend discontinued enoxaparin. We will sign off of case. Please reconsult if deemed necessary and if high suspicion of infective endocarditis. Critical care time spent including discussion with nursing and family, excluding procedures: 63 minutes Plan discussed with: Patient, Other (Nurses) Dietary Evaluation Review Comments: Nutrition Recommendation 1) Cardiac + 2gm K msoft diet 2) Consider Ensure high protein 240ml TID if PO intake < 50% 3) Monitor PO intake, lab values, weight trend, and I/O Expected Outcomes/Goals: Lab values to improve Fu 3-5 days Visit Coding Cardiology RES Date of Service: Mar 11, 2025 Billing Provider: GABRIEL PERES Sr., MD Cardiology Common Codes: [id number] HOS[facility] CARE(High Cardiology Secondary Visit Cod: [id number] CARE PLAN 30 MINUTES AVIVA XAVIER RESIDENT Mar 11, 2025 07:14
--- NOTE | 2025-03-11 08:58 | DVHPN2 ---
Progress Note Date Seen: Mar 11, 2025 Medical Necessity Reason Pt with a Central, PICC or Fol: Yes The following are medically ne: Central Line, Stokes Catheter Objective vital signs Vital Sign Date Time Temp Pulse Resp B/P (MAP) Pulse Ox O2 Delivery O2 Flow Rate FiO2 03/11/25 07:00 109 14 138/99 (112) 96 03/11/25 06:00 Nasal Cannula* 2 28 03/11/25 04:30 97.6 97.6 Total Intake and Output 03/10/25 03/10/25 03/11/25 15:00 23:00 07:00 Intake Total 940 ml 580 ml 350 ml Output Total 750 ml 1200 ml Balance 940 ml -170 ml -850 ml medications Current Medications Medications Dose Ordered Sig/Hugh Route Start Time Stop Time Status Last Admin Dose Admin Tramadol HCl 50 mg Q6HP PRN PO 03/05/25 00:00 03/11/25 04:10 50 MG Ondansetron HCl 4 mg Q4HPRN PRN IV 03/05/25 11:15 03/06/25 15:46 4 MG Pantoprazole Sodium 40 mg DAILY IV 03/08/25 10:00 03/11/25 07:59 40 MG Furosemide 40 mg BIDD IV 03/08/25 06:00 03/11/25 05:58 40 MG Methylprednisolone Sodium Succinate 40 mg DAILY IV 03/08/25 10:00 03/11/25 07:59 40 MG Ipratropium [place] 0.5 mg Q6HR NEB 03/08/25 12:00 03/11/25 06:51 0.5 MG Albuterol 2.5 mg Q6HR NEB 03/08/25 12:00 03/11/25 06:51 2.5 MG Meropenem 50 ml @ 17 mls/hr DAILY IV 03/09/25 10:00 03/11/25 07:59 17 MLS/HR Micafungin Sodium 100 mg/Sodium Chloride 100 ml @ 100 mls/hr DAILY IV 03/09/25 10:00 03/11/25 08:00 100 MLS/HR Enoxaparin Sodium 30 mg DAILY SC 03/09/25 10:00 03/09/25 10:43 30 MG Morphine Sulfate 1 mg Q3HP PRN IV 03/08/25 12:15 03/11/25 05:59 1 MG Phenylephrine HCl 80 mg/Sodium Chloride 250 ml @ 7.5 mls/hr Q24H IV 03/08/25 13:15 03/09/25 16:25 10.313 MLS/HR Vasopressin 20 units/Sodium Chloride 100 ml @ 9 mls/hr Q11H7M IV 03/08/25 15:30 Vancomycin HCl 0 ml @ 0 mls/hr PER PHARMACY IV 03/08/25 15:45 Norepinephrine Bitartrate 32 mg/ Sodium Chloride 250 ml @ 0.938 mls/ hr Q24H IV 03/08/25 15:45 03/09/25 16:28 4.688 MLS/HR Potassium Bicarbonate 25 meq DAILY PO 03/11/25 10:00 laboratory and microbiology Laboratory Tests 03/11/25 03:07 Test 03/11/25 03:07 Range/Units Serum Glucose 141 H 74-106 mg/dL Microbiology Date/Time Source Procedure Growth Status 03/08/25 12:54 Voided Urine Urine Culture - Preliminary Resulted 03/07/25 22:05 Blood Blood Culture - Preliminary NO GROWTH AFTER 72 HOURS OF INCUBATION. Resulted 03/07/25 18:40 Nose MRSA Screen - Final Complete Problem List/Assessment/Plan Problem List/Assessment/Plan Acute kidney injury likely ATN needed intermittent hemodialysis Cirrhosis alcoholic Right ventricular failure Anemia thrombocytopenia Septic shock Recommendations Last dialysis was done on 03/09 Renal recovery noticed creatinine is much better and urine output getting better We will hold dialysis will need dialysis catheter removal in next 24 hours if renal function remains stable Plan discussed with: Patient Dietary Evaluation Review Comments: Nutrition Recommendation 1) Cardiac + 2gm K msoft diet 2) Consider Ensure high protein 240ml TID if PO intake < 50% 3) Monitor PO intake, lab values, weight trend, and I/O Expected Outcomes/Goals: Lab values to improve Fu 3-5 days MARCELLA MONTAÑO MD Mar 11, 2025 08:58
[2025-03-11] MEDS: VANCOMYCIN 500mg/100mL 100 ML IV ONE (09:29)
--- NOTE | 2025-03-11 09:47 | DVHPN2 ---
Subjective Patient reports generalized body aches Reviewed: Care Plan, H&P, Labs, Medications, Previous Orders, Radiology Changes from previous H/P or p: No Changes General: Per HPI Objective Vitals Vital Signs Date Time Temp Pulse Resp B/P (MAP) Pulse Ox O2 Delivery O2 Flow Rate FiO2 03/11/25 08:45 96.4 96 10 128/90 (103) 96 205.5 03/11/25 08:00 Nasal Cannula* 2 28 Intake/Output Intake and Output 03/11/25 07:00 Intake Total 1870 ml Output Total 1950 ml Balance -80 ml Intake Oral 970 ml IV Total 600 ml Blood Product 300 ml Output Urine Total 1950 ml General Appearance: Alert, Oriented X3, Cooperative, No acute distress HEENT: Atraumatic, PERRLA Lungs: Clear to auscultation, Other (Decreased air entry bilaterally) Cardiovascular: Normal S1, Normal S2 Abdomen: Normal bowel sounds, Soft, No tenderness Musculoskeletal: Normal sensory function, Normal motor function Neuro: Normal gait, Normal speech Skin: Dry, Intact Psych/Mental Status: Mental status NL, Mood NL Medications Current Medications Medications Dose Ordered Sig/Hugh Route Start Time Stop Time Status Last Admin Dose Admin Tramadol HCl 50 mg Q6HP PRN PO 03/05/25 00:00 03/11/25 04:10 50 MG Ondansetron HCl 4 mg Q4HPRN PRN IV 03/05/25 11:15 03/06/25 15:46 4 MG Pantoprazole Sodium 40 mg DAILY IV 03/08/25 10:00 03/11/25 07:59 40 MG Methylprednisolone Sodium Succinate 40 mg DAILY IV 03/08/25 10:00 03/11/25 07:59 40 MG Ipratropium [place] 0.5 mg Q6HR NEB 03/08/25 12:00 03/11/25 06:51 0.5 MG Albuterol 2.5 mg Q6HR NEB 03/08/25 12:00 03/11/25 06:51 2.5 MG Meropenem 50 ml @ 17 mls/hr DAILY IV 03/09/25 10:00 03/11/25 07:59 17 MLS/HR Morphine Sulfate 1 mg Q3HP PRN IV 03/08/25 12:15 03/11/25 05:59 1 MG Phenylephrine HCl 80 mg/Sodium Chloride 250 ml @ 7.5 mls/hr Q24H IV 03/08/25 13:15 03/09/25 16:25 10.313 MLS/HR Vancomycin HCl 0 ml @ 0 mls/hr PER PHARMACY IV 03/08/25 15:45 Norepinephrine Bitartrate 32 mg/ Sodium Chloride 250 ml @ 0.938 mls/ hr Q24H IV 03/08/25 15:45 03/09/25 16:28 4.688 MLS/HR Potassium Bicarbonate 25 meq DAILY PO 03/11/25 10:00 Furosemide 40 mg DAILY IV 03/12/25 10:00 UNV Laboratory Results Laboratory Tests 03/11/25 03:07 Chemistry Test 03/10/25 14:35 03/11/25 03:07 Calcium Level 7.0 mg/dL (8.7-10.4) L 7.6 mg/dL (8.7-10.4) L Albumin 3.3 g/dL (3.2-4.8) Total Protein 7.6 g/dL (5.7-8.2) LFT Test 03/11/25 03:07 Alanine Aminotransferase (ALT) 201 U/L (7-40) H Alkaline Phosphatase 84 U/L (46-116) Aspartate Amino Transferase (AST) 422 U/L (13-40) H Total Bilirubin 7.6 mg/dL (0.2-1.0) H Urinalysis Test 03/08/25 09:00 Urine Color Dark-yellow (Yellow) Urine Clarity Ex.turbid (Clear) Urine pH 6.0 (5.0-9.0) Urine Specific [place] 1.018 (1.001-1.035) Urine Protein 3+ (Negative) H Urine Ketones Negative (Negative) Urine Blood 3+ /uL (Negative) H Urine Nitrite Negative (Negative) Urine Bilirubin 1+ (Negative) H Urine Urobilinogen 2 mg/dL (Negative) H Urine Leukocyte Esterase 3+ /uL (Negative) Urine RBC 1880 /hpf (0 - 4) Urine Microscopic WBC 321 /HPF (0-5) H Urine Squamous Epithelial Cells Mod /hpf (<5) Urine Calcium Oxalate Crystals Few (None Seen) Urine Bacteria Mod /hpf (None Seen) H Urine Mucus Few (None Seen) Urine Glucose Trace mg/dL (Normal) Microbiology Microbiology Date/Time Source Procedure Growth Status 03/08/25 12:54 Voided Urine Urine Culture - Preliminary Resulted 03/07/25 22:05 Blood Blood Culture - Preliminary NO GROWTH AFTER 72 HOURS OF INCUBATION. Resulted 03/07/25 18:40 Nose MRSA Screen - Final Complete Labs and/or images reviewed: Labs reviewed by me, Image(s) reviewed by me Assessment/Plan Assessment/Plan Impression: -cirrhosis of the liver -cardiomegaly -thrombocytopenia -acute respiratory failure -ruled out acute systolic heart failure -obesity -portal hypertension -probable RV failure with severe tricuspid regurgitation -acute hypoxic respiratory failure -Complicated Cystitis Plan: Events: No events overnight. Patient now mildly hypertensive. Continues to be hypokalemic. Excellent urine output -decrease Lasix to 40 mg daily -potassium replacement -PPI -deescalate antibiotics. Continue Merrem panel and vancomycin, stop micafungin -consultations: GI, Nephrology, Cardiology -assess need for HD catheter, remove if no further plans for HD -repeat labs in a.m. Critical care time spent with patient discussing and formulating plan of care: 40 minutes. This does not include time spent performing procedures. This medical document was created using an electronic medical record system with Vudu dictation system. Although this document has been carefully reviewed, there may still be some phonetic and typographical errors. These areas are purely typographical due to imperfections of the software programs, and do not reflect any compromise in the patient's medical care. Plan discussed with: Patient, Other (RN) My Orders Orders - TUCKER GROSS NP Procedure Category Date Status Time Vancomycin,Random LAB 03/12/25 Verified 05:00 Potassium Effervesent PHA 03/11/25 In Process Tab (Klor-Con/Ef) 10:00 Furosemide Injection PHA 03/12/25 Logged (Lasix Injection) 10:00 Date of Service: Mar 11, 2025 Billing Provider: TUCKER GROSS NP Common Visit Codes: [id number] CARE 30-74 MIN TUCKER GROSS NP Mar 11, 2025 09:47
[2025-03-11] MEDS: POTASSIUM EFFERVESENT TAB 25 MEQ PO SCH (09:58)
--- NOTE | 2025-03-11 10:28 | DVHPN2 ---
Progress Note - Dictate Date Seen: Mar 11, 2025 Medical Necessity Reason Pt with a Central, PICC or Fol: Yes The following are medically ne: Central Line, Stokes Catheter Subjective 39-year-old lady with alcoholic cirrhosis congestive heart failure recent alcohol abuse quit one month ago Patient is awake arousable and responsive ; no active bleeding reported She complains of some generalized aches and pains and feeling uncomfortable in the bed Hemoglobin stable at 7.8, bilirubin trending down but persistent elevation in liver enzymes vital signs Vital Sign Date Time Temp Pulse Resp B/P (MAP) Pulse Ox O2 Delivery O2 Flow Rate FiO2 03/11/25 09:50 17 96 Nasal Cannula* 2 28 03/11/25 09:50 82 03/11/25 08:45 96.4 128/90 (103) 205.5 Total Intake and Output 03/10/25 03/10/25 03/11/25 15:00 23:00 07:00 Intake Total 940 ml 580 ml 350 ml Output Total 750 ml 1200 ml Balance 940 ml -170 ml -850 ml medications Current Medications Medications Dose Ordered Sig/Hugh Route Start Time Stop Time Status Last Admin Dose Admin Tramadol HCl 50 mg Q6HP PRN PO 03/05/25 00:00 03/11/25 04:10 50 MG Ondansetron HCl 4 mg Q4HPRN PRN IV 03/05/25 11:15 03/06/25 15:46 4 MG Pantoprazole Sodium 40 mg DAILY IV 03/08/25 10:00 03/11/25 07:59 40 MG Methylprednisolone Sodium Succinate 40 mg DAILY IV 03/08/25 10:00 03/11/25 07:59 40 MG Ipratropium [place] 0.5 mg Q6HR NEB 03/08/25 12:00 03/11/25 06:51 0.5 MG Albuterol 2.5 mg Q6HR NEB 03/08/25 12:00 03/11/25 06:51 2.5 MG Meropenem 50 ml @ 17 mls/hr DAILY IV 03/09/25 10:00 03/11/25 07:59 17 MLS/HR Morphine Sulfate 1 mg Q3HP PRN IV 03/08/25 12:15 03/11/25 05:59 1 MG Phenylephrine HCl 80 mg/Sodium Chloride 250 ml @ 7.5 mls/hr Q24H IV 03/08/25 13:15 03/09/25 16:25 10.313 MLS/HR Vancomycin HCl 0 ml @ 0 mls/hr PER PHARMACY IV 03/08/25 15:45 Norepinephrine Bitartrate 32 mg/ Sodium Chloride 250 ml @ 0.938 mls/ hr Q24H IV 03/08/25 15:45 03/09/25 16:28 4.688 MLS/HR Potassium Bicarbonate 25 meq DAILY PO 03/11/25 10:00 03/11/25 09:58 25 MEQ Furosemide 40 mg DAILY IV 03/12/25 10:00 objective General Appearance: Alert, Oriented X3, Cooperative, No acute distress HEENT: Atraumatic, PERRLA; sclera icteric Lungs: Clear to auscultation, Cardiovascular: Normal S1, Normal S2 Abdomen: Normal bowel sounds, Soft, No tenderness Musculoskeletal: Normal sensory function, Normal motor function Ext mild generakized anasarca laboratory and microbiology Laboratory Tests 03/11/25 03:07 Test 03/11/25 03:07 Range/Units Serum Glucose 141 H 74-106 mg/dL Problems(with codes): (1) Volume overload (2) Exertional dyspnea (3) Thrombocytopenia (4) Hyperbilirubinemia (5) Anemia (6) Alcoholic steatohepatitis (7) Cirrhosis of liver Prognosis Plan MDS is improving down to 35.2 points MELD score 33 points which is improving and likely to improve further as her renal function has improved Last dialysis was done on 03/09 Renal recovery noticed creatinine is much better and urine output getting better We will hold dialysis for now; will need dialysis catheter removal in next 24 hours if renal function remains stable Continue IV antibiotics and IV ppi Patient tolerating hepatic diet Monitor labs closely Dietary Evaluation Review Comments: Nutrition Recommendation 1) Cardiac + 2gm K msoft diet 2) Consider Ensure high protein 240ml TID if PO intake < 50% 3) Monitor PO intake, lab values, weight trend, and I/O Expected Outcomes/Goals: Lab values to improve Fu 3-5 days Plan discussed with: Patient, Other (ICU Nurse) JACOB BROWN MD Mar 11, 2025 10:28
[2025-03-11] MEDS: MEROPENEM 1GM IVPB 50 ML IV SCH (15:56)
--- NOTE | 2025-03-11 23:26 | DVHPN2 ---
Subjective DOS: 03/11/2025 Patient seen and examined at bedside. Remains on supplemental oxygen Overnight events reviewed. Reviewed: Care Plan, H&P, Labs, Medications, Previous Orders, Radiology Changes from previous H/P or p: No Changes General: Per HPI Objective Vitals Vital Signs Date Time Temp Pulse Resp B/P (MAP) Pulse Ox O2 Delivery O2 Flow Rate FiO2 03/11/25 20:00 105 03/11/25 20:00 20 92 Nasal Cannula* 2 28 03/11/25 18:45 134/86 (102) 03/11/25 16:00 97.0 97.0 Intake/Output Intake and Output 03/11/25 07:00 Intake Total 1870 ml Output Total 1950 ml Balance -80 ml Intake Oral 970 ml IV Total 600 ml Blood Product 300 ml Output Urine Total 1950 ml General Appearance: Alert, Oriented X3, Cooperative, No acute distress HEENT: Atraumatic, PERRLA Lungs: Clear to auscultation, Other (Decreased air entry bilaterally) Cardiovascular: Normal S1, Normal S2 Abdomen: Normal bowel sounds, Soft, No tenderness Musculoskeletal: Normal sensory function, Normal motor function Neuro: Normal gait, Normal speech Skin: Dry, Intact Psych/Mental Status: Mental status NL, Mood NL Medications Current Medications Medications Dose Ordered Sig/Hugh Route Start Time Stop Time Status Last Admin Dose Admin Tramadol HCl 50 mg Q6HP PRN PO 03/05/25 00:00 03/11/25 22:36 50 MG Ondansetron HCl 4 mg Q4HPRN PRN IV 03/05/25 11:15 03/06/25 15:46 4 MG Pantoprazole Sodium 40 mg DAILY IV 03/08/25 10:00 03/11/25 07:59 40 MG Methylprednisolone Sodium Succinate 40 mg DAILY IV 03/08/25 10:00 03/11/25 07:59 40 MG Ipratropium [place] 0.5 mg Q6HR NEB 03/08/25 12:00 03/11/25 23:00 0.5 MG Albuterol 2.5 mg Q6HR NEB 03/08/25 12:00 03/11/25 23:00 2.5 MG Morphine Sulfate 1 mg Q3HP PRN IV 03/08/25 12:15 03/11/25 05:59 1 MG Phenylephrine HCl 80 mg/Sodium Chloride 250 ml @ 7.5 mls/hr Q24H IV 03/08/25 13:15 03/09/25 16:25 10.313 MLS/HR Vancomycin HCl 0 ml @ 0 mls/hr PER PHARMACY IV 03/08/25 15:45 Norepinephrine Bitartrate 32 mg/ Sodium Chloride 250 ml @ 0.938 mls/ hr Q24H IV 03/08/25 15:45 03/09/25 16:28 4.688 MLS/HR Potassium Bicarbonate 25 meq DAILY PO 03/11/25 10:00 03/11/25 09:58 25 MEQ Furosemide 40 mg DAILY IV 03/12/25 10:00 Meropenem 50 ml @ 17 mls/hr Q8H IV 03/11/25 16:00 03/11/25 15:56 17 MLS/HR Laboratory Results Laboratory Tests 03/11/25 03:07 Chemistry Test 03/11/25 03:07 Albumin 3.3 g/dL (3.2-4.8) Calcium Level 7.6 mg/dL (8.7-10.4) L Total Protein 7.6 g/dL (5.7-8.2) LFT Test 03/11/25 03:07 Alanine Aminotransferase (ALT) 201 U/L (7-40) H Alkaline Phosphatase 84 U/L (46-116) Aspartate Amino Transferase (AST) 422 U/L (13-40) H Total Bilirubin 7.6 mg/dL (0.2-1.0) H Urinalysis Test 03/08/25 09:00 Urine Color Dark-yellow (Yellow) Urine Clarity Ex.turbid (Clear) Urine pH 6.0 (5.0-9.0) Urine Specific [place] 1.018 (1.001-1.035) Urine Protein 3+ (Negative) H Urine Ketones Negative (Negative) Urine Blood 3+ /uL (Negative) H Urine Nitrite Negative (Negative) Urine Bilirubin 1+ (Negative) H Urine Urobilinogen 2 mg/dL (Negative) H Urine Leukocyte Esterase 3+ /uL (Negative) Urine RBC 1880 /hpf (0 - 4) Urine Microscopic WBC 321 /HPF (0-5) H Urine Squamous Epithelial Cells Mod /hpf (<5) Urine Calcium Oxalate Crystals Few (None Seen) Urine Bacteria Mod /hpf (None Seen) H Urine Mucus Few (None Seen) Urine Glucose Trace mg/dL (Normal) Microbiology Microbiology Date/Time Source Procedure Growth Status 03/08/25 12:54 Voided Urine Urine Culture - Final Escherichia coli Complete 03/07/25 22:05 Blood Blood Culture - Preliminary NO GROWTH AFTER 72 HOURS OF INCUBATION. Resulted 03/07/25 18:40 Nose MRSA Screen - Final Complete Assessment/Plan Assessment/Plan Impression: Acute hypoxic respiratory failure Dependence on supplemental oxygen Pancytopenia Obesity, BMI 36.4 Shock Renal failure Events: Improved O2 requirements, Remains on supplemental oxygen, 3 LPM NC Continue to taper as tolerated Hemodialysis per Nephrology Follow up Nephrology recs Continue diuresis with Lasix Monitor renal function Continue bronchodilators Continue steroids Continue antibiotics Incentive spirometry Hemoglobin trended up to 7.8 g/dL Continue to monitor hemoglobin closely HOB elevation Aspiration precautions Patient with poor prognosis Labs and imaging reviewed. Rest of plan as noted below. Plan: Supplemental oxygen Titrate to keep O2 sats above 92%. Pressors as necessary for hemodynamic support Titrate to keep mean arterial pressure greater than 65 mmHg. Bronchodilators. Antibiotics IV steroids Accu-Cheks, ISS PRN. Hemodialysis per Nephrology F/u Nephrology recommendations Monitor renal function. Monitor electrolytes. Supplement as necessary. Monitor ins and outs. Obesity complicates all care GI/DVT prophylaxis. Prognosis: Poor given patient's multiple co-morbidities. Condition: Critical Rest of plan per hospitalist and other consultants. A total of 35 minutes of critical care time was spent reviewing the patient record, examining the patient, making a diagnostic and therapeutic plan, discussing this plan with the medical personnel, following up on diagnostic studies and following the patient for clinical stability excluding any and all procedures. At least 50% of this time was spent in direct, [id number] contact. Thank you, TYLER Maloney, for allowing me to participate in this patient's care. Further recommendations will depend on the patient's clinical course. Please do not hesitate to contact me if you have any questions or concerns. This medical document was created using an electronic medical record system with [employer] dictation system. Although these documentations are being carefully reviewed, there may still be some phonetic and typographical changes. The errors are purely typographical, due to imperfection on the software program, and do not reflect any compromise in the patient's medical care. Plan discussed with: Patient, Other (ALEJO Torrez) Visit Coding Pulmonary Billing Provider: CHERYL MILLER MD Date of Service if different f: Mar 11, 2025 Common Visit Codes: [id number] INP/OBS CARE(HIGH), [id number] CARE 30-74 MIN CHERYL MILLER MD Mar 11, 2025 23:26
[2025-03-12] VITALS (70 sets, daily range): BP systolic 114–149; BP diastolic 73–105; PULSE 87–116; RESP 12–22; TEMP 97.7–98.9; O2SAT 92–100
[2025-03-12 03:50] LABS: Alkaline Phosphatase 105 U/L (46-116); Anion Gap 11 (5-15); BUN/Creatinine Ratio 33.8 (10.0-20.0); Carbon Dioxide 31 mmol/L (20-31); Potassium 4.1 mmol/L (3.5-5.1); Total Protein 7.6 g/dL (5.7-8.2)
[2025-03-12 03:57] LABS: Alanine Aminotransferase 210 U/L (7-40); Albumin 3.2 g/dL (3.2-4.8); Bilirubin, Total 7.3 mg/dL (0.2-1.0); Blood Urea Nitrogen 26 mg/dL (9-23); Calcium 8.0 mg/dL (8.7-10.4); Chloride 93 mmol/L (98-107); Glucose 123 mg/dL (74-106); Hematocrit 24.8 % (36.0-46.0); Hemoglobin 8.3 g/dL (12.2-16.2); Nucleated Red Blood Cells % 0.3 %; Sodium 135 mmol/L (136-145)
[2025-03-12 03:59] LABS: Mean Corpuscular Hemoglobin 30.5 pg (28.0-32.0); Mean Corpuscular Volume 90.9 fL (80.0-100.0)
[2025-03-12 04:03] LABS: INR 1.99 (0.9-1.15); Prothrombin Time 19.7 sec (9.3-11.8)
--- NOTE | 2025-03-12 04:11 | DVH ---
CHEST RADIOGRAPH Indication: chf Technique: Single frontal view of the chest was obtained Comparison: XY CHEST XRAY 1 VIEW on DOS: 03/11/25. FINDINGS: Lines and Tubes: There is a right central venous catheter with terminating in the right atrium. Lungs: No focal consolidation. Pleura: No effusion. No pneumothorax. Cardiomediastinal contours: Marked cardiomegaly. Bones: No acute osseous abnormality. IMPRESSION: 1. Marked cardiomegaly. 2. No focal airspace disease. 3. Right IJ access central venous catheter unchanged in position.
--- NOTE | 2025-03-12 09:06 | DVHPN2 ---
Subjective Patient reports generalized body aches Reviewed: Care Plan, H&P, Labs, Medications, Previous Orders, Radiology Changes from previous H/P or p: No Changes General: Per HPI Objective Vitals Vital Signs Date Time Temp Pulse Resp B/P (MAP) Pulse Ox O2 Delivery O2 Flow Rate FiO2 03/12/25 08:00 Nasal Cannula* 2 28 03/12/25 06:46 96 03/12/25 06:44 88 18 03/12/25 06:00 126/95 (105) 03/12/25 04:00 98.5 98.5 Intake/Output Intake and Output 03/12/25 07:00 Intake Total 1320 ml Output Total 1850 ml Balance -530 ml Intake Oral 1020 ml IV Total 300 ml Output Urine Total 1850 ml General Appearance: Alert, Oriented X3, Cooperative, No acute distress HEENT: Atraumatic, PERRLA Lungs: Clear to auscultation, Other (Decreased air entry bilaterally) Cardiovascular: Normal S1, Normal S2 Abdomen: Normal bowel sounds, Soft, No tenderness Musculoskeletal: Normal sensory function, Normal motor function Neuro: Normal gait, Normal speech Skin: Dry, Intact Psych/Mental Status: Mental status NL, Mood NL Medications Current Medications Medications Dose Ordered Sig/Hugh Route Start Time Stop Time Status Last Admin Dose Admin Tramadol HCl 50 mg Q6HP PRN PO 03/05/25 00:00 03/12/25 04:48 50 MG Ondansetron HCl 4 mg Q4HPRN PRN IV 03/05/25 11:15 03/06/25 15:46 4 MG Pantoprazole Sodium 40 mg DAILY IV 03/08/25 10:00 03/11/25 07:59 40 MG Methylprednisolone Sodium Succinate 40 mg DAILY IV 03/08/25 10:00 03/11/25 07:59 40 MG Ipratropium [place] 0.5 mg Q6HR NEB 03/08/25 12:00 03/12/25 06:43 0.5 MG Albuterol 2.5 mg Q6HR NEB 03/08/25 12:00 03/12/25 06:43 2.5 MG Morphine Sulfate 1 mg Q3HP PRN IV 03/08/25 12:15 03/11/25 05:59 1 MG Furosemide 40 mg DAILY IV 03/12/25 10:00 Lactulose 30 ml DAILY PO 03/12/25 10:00 UNV Ceftriaxone Sodium/Dextrose 50 ml @ 50 mls/hr DAILY IV 03/12/25 10:00 UNV Laboratory Results Laboratory Tests 03/12/25 03:08 Chemistry Test 03/12/25 03:08 Albumin 3.2 g/dL (3.2-4.8) Calcium Level 8.0 mg/dL (8.7-10.4) L Total Protein 7.6 g/dL (5.7-8.2) Coagulation Test 03/12/25 03:08 Prothrombin Time 19.7 sec (9.3-11.8) H Prothrombin Time INR 1.99 (0.9-1.15) H LFT Test 03/12/25 03:08 Alanine Aminotransferase (ALT) 210 U/L (7-40) H Alkaline Phosphatase 105 U/L (46-116) Aspartate Amino Transferase (AST) 302 U/L (13-40) H Total Bilirubin 7.3 mg/dL (0.2-1.0) H Urinalysis Test 03/08/25 09:00 Urine Color Dark-yellow (Yellow) Urine Clarity Ex.turbid (Clear) Urine pH 6.0 (5.0-9.0) Urine Specific [place] 1.018 (1.001-1.035) Urine Protein 3+ (Negative) H Urine Ketones Negative (Negative) Urine Blood 3+ /uL (Negative) H Urine Nitrite Negative (Negative) Urine Bilirubin 1+ (Negative) H Urine Urobilinogen 2 mg/dL (Negative) H Urine Leukocyte Esterase 3+ /uL (Negative) Urine RBC 1880 /hpf (0 - 4) Urine Microscopic WBC 321 /HPF (0-5) H Urine Squamous Epithelial Cells Mod /hpf (<5) Urine Calcium Oxalate Crystals Few (None Seen) Urine Bacteria Mod /hpf (None Seen) H Urine Mucus Few (None Seen) Urine Glucose Trace mg/dL (Normal) Microbiology Microbiology Date/Time Source Procedure Growth Status 03/08/25 12:54 Voided Urine Urine Culture - Final Escherichia coli Complete 03/07/25 22:05 Blood Blood Culture - Preliminary NO GROWTH AFTER 72 HOURS OF INCUBATION. Resulted 03/07/25 18:40 Nose MRSA Screen - Final Complete Labs and/or images reviewed: Labs reviewed by me, Image(s) reviewed by me Assessment/Plan Assessment/Plan Impression: -cirrhosis of the liver -cardiomegaly -thrombocytopenia -acute respiratory failure -ruled out acute systolic heart failure -obesity -portal hypertension -probable RV failure with severe tricuspid regurgitation -acute hypoxic respiratory failure -Complicated Cystitis Plan: Events: No events overnight. Renal function back to within normal limits. Patient noted to have hyperammonemia. Patient clinically stable. We will address the need for further dialysis with possible removal of HD catheter. -start lactulose -PPI -urine culture positive for E coli, susceptible strain. Blood cultures negative. Deescalate antibiotics to Rocephin 2 g daily -consultations: GI, Nephrology, Cardiology -assess need for HD catheter, remove if no further plans for HD -transferred to telemetry floor Total time spent with patient discussing and formulating plan of care: 35 minutes. This medical document was created using an electronic medical record system with [employer] dictation system. Although this document has been carefully reviewed, there may still be some phonetic and typographical errors. These areas are purely typographical due to imperfections of the software programs, and do not reflect any compromise in the patient's medical care. Plan discussed with: Patient, Other (RN) My Orders Orders - TUCKER GROSS NP Procedure Category Date Status Time Furosemide Injection PHA 03/12/25 In Process (Lasix Injection) 10:00 Lactulose Oral PHA 03/12/25 In Process 10:00 Ceftriaxone 2gm/50ml PHA 03/12/25 In Process (Rocephin 2gm/50ml) 10:00 Transfer Orders XFER 03/12/25 Transmitted 08:56 Date of Service: Mar 12, 2025 Billing Provider: TUCKER GROSS NP Common Visit Codes: [id number] INP/OBS CARE(HIGH) TUCKER GROSS NP Mar 12, 2025 09:06
[2025-03-12] MEDS: FUROSEMIDE 40 MG/4 ML VIAL IV SCH (09:30)
[2025-03-12] MEDS: LACTULOSE 20Gm/30ML SOLN PO SCH (09:30)
--- NOTE | 2025-03-12 09:39 | DVHPN2 ---
Progress Note Date Seen: Mar 12, 2025 Medical Necessity Reason Pt with a Central, PICC or Fol: Yes The following are medically ne: Central Line, Stokes Catheter Subjective Patient reports: No new complaints Other Systems: Patient seen and examined by myself today in follow-up Objective vital signs Vital Sign Date Time Temp Pulse Resp B/P (MAP) Pulse Ox O2 Delivery O2 Flow Rate FiO2 03/12/25 08:00 Nasal Cannula* 2 28 03/12/25 08:00 93 03/12/25 06:46 96 03/12/25 06:44 18 03/12/25 06:00 126/95 (105) 03/12/25 04:00 98.5 98.5 Total Intake and Output 03/11/25 03/11/25 03/12/25 15:00 23:00 07:00 Intake Total 250 ml 710 ml 360 ml Output Total 1250 ml 600 ml Balance 250 ml -540 ml -240 ml medications Current Medications Medications Dose Ordered Sig/Hugh Route Start Time Stop Time Status Last Admin Dose Admin Tramadol HCl 50 mg Q6HP PRN PO 03/05/25 00:00 03/12/25 04:48 50 MG Ondansetron HCl 4 mg Q4HPRN PRN IV 03/05/25 11:15 03/06/25 15:46 4 MG Pantoprazole Sodium 40 mg DAILY IV 03/08/25 10:00 03/11/25 07:59 40 MG Methylprednisolone Sodium Succinate 40 mg DAILY IV 03/08/25 10:00 03/11/25 07:59 40 MG Ipratropium [place] 0.5 mg Q6HR NEB 03/08/25 12:00 03/12/25 06:43 0.5 MG Albuterol 2.5 mg Q6HR NEB 03/08/25 12:00 03/12/25 06:43 2.5 MG Morphine Sulfate 1 mg Q3HP PRN IV 03/08/25 12:15 03/11/25 05:59 1 MG Furosemide 40 mg DAILY IV 03/12/25 10:00 Lactulose 30 ml DAILY PO 03/12/25 10:00 Ceftriaxone Sodium/Dextrose 50 ml @ 50 mls/hr DAILY IV 03/12/25 10:00 Examination: LUNGS:Normal, CVS:Normal, MSK:Normal laboratory and microbiology Laboratory Tests 03/12/25 03:08 Test 03/12/25 03:08 Range/Units Serum Glucose 123 H 74-106 mg/dL Microbiology Date/Time Source Procedure Growth Status 03/08/25 12:54 Voided Urine Urine Culture - Final Escherichia coli Complete 03/07/25 22:05 Blood Blood Culture - Preliminary NO GROWTH AFTER 72 HOURS OF INCUBATION. Resulted 03/07/25 18:40 Nose MRSA Screen - Final Complete Problem List/Assessment/Plan Problem List/Assessment/Plan Acute kidney injury secondary hemodynamic mediated, status post intermittent hemodialysis Tricuspid regurg Alcoholic Liver cirrhosis Hepatic encephalopathy Pericardial effusion Anemia Thrombocytopenia Septic shock Recommendations Kidney function resolved back to normal Increased urine output Strict I&Os Remove [place] hemodialysis catheter Check urine electrolytes and protein excretion I agree with diuresis Lactulose IV antibiotics Cardiology on board Plan discussed with: Patient My Orders My Orders Orders - ELZA DUGAN MD Procedure Category Date Status Time Urine Sodium LAB 03/12/25 Transmitted 09:28 Urine LAB 03/12/25 Transmitted Protein/Creatinine Urine Creatinine LAB 03/12/25 Transmitted 09:28 Urinalysis LAB 03/12/25 Transmitted 09:28 Vitamin D, 25-Hydroxy LAB 03/12/25 Transmitted 09:28 Phosphorus LAB 03/12/25 Transmitted 09:28 Magnesium LAB 03/12/25 Transmitted 09:28 Dietary Evaluation Review Comments: Nutrition Recommendation 1) Cardiac + 2gm K msoft diet 2) Consider Ensure high protein 240ml TID if PO intake < 50% 3) Monitor PO intake, lab values, weight trend, and I/O Expected Outcomes/Goals: Lab values to improve Fu 3-5 days ELZA DUGAN MD Mar 12, 2025 09:38
[2025-03-12 10:08] LABS: Magnesium 1.4 mg/dL (1.6-2.6)
[2025-03-12 11:07] LABS: Urine Protein, UAD Negative (Negative)
[2025-03-12 11:14] LABS: Protein, Urine < 6.0 mg/dL (1-14)
--- NOTE | 2025-03-12 17:47 | DVHPN2 ---
Progress Note - Dictate Date Seen: Mar 12, 2025 Medical Necessity Reason Pt with a Central, PICC or Fol: Yes The following are medically ne: Central Line, Stokes Catheter Subjective 39-year-old lady with alcoholic cirrhosis congestive heart failure recent alcohol abuse quit one month ago Patient is awake arousable and responsive ; no active bleeding reported She complains of some generalized aches and pains and feeling uncomfortable in the bed Hemoglobin stable at 7.8, bilirubin trending down but persistent elevation in liver enzymes Patient is downgraded to telemetry vital signs Vital Sign Date Time Temp Pulse Resp B/P (MAP) Pulse Ox O2 Delivery O2 Flow Rate FiO2 03/12/25 16:00 88 03/12/25 16:00 Nasal Cannula* 2 28 03/12/25 15:45 18 125/83 (97) 96 03/12/25 12:00 98.9 98.9 Total Intake and Output 03/11/25 03/11/25 03/12/25 15:00 23:00 07:00 Intake Total 250 ml 710 ml 360 ml Output Total 1250 ml 600 ml Balance 250 ml -540 ml -240 ml medications Current Medications Medications Dose Ordered Sig/Hugh Route Start Time Stop Time Status Last Admin Dose Admin Tramadol HCl 50 mg Q6HP PRN PO 03/05/25 00:00 03/12/25 04:48 50 MG Ondansetron HCl 4 mg Q4HPRN PRN IV 03/05/25 11:15 03/06/25 15:46 4 MG Pantoprazole Sodium 40 mg DAILY IV 03/08/25 10:00 03/12/25 09:29 40 MG Methylprednisolone Sodium Succinate 40 mg DAILY IV 03/08/25 10:00 03/12/25 09:30 40 MG Ipratropium [place] 0.5 mg Q6HR NEB 03/08/25 12:00 03/12/25 11:46 0.5 MG Albuterol 2.5 mg Q6HR NEB 03/08/25 12:00 03/12/25 11:46 2.5 MG Morphine Sulfate 1 mg Q3HP PRN IV 03/08/25 12:15 03/11/25 05:59 1 MG Furosemide 40 mg DAILY IV 03/12/25 10:00 03/12/25 09:30 40 MG Lactulose 30 ml DAILY PO 03/12/25 10:00 03/12/25 09:30 30 ML Ceftriaxone Sodium/Dextrose 50 ml @ 50 mls/hr DAILY IV 03/12/25 10:00 03/12/25 09:29 50 MLS/HR objective General Appearance: Alert, Oriented X3, Cooperative, No acute distress HEENT: Atraumatic, PERRLA; sclera icteric Lungs: Clear to auscultation, Cardiovascular: Normal S1, Normal S2 Abdomen: Normal bowel sounds, Soft, No tenderness Musculoskeletal: Normal sensory function, Normal motor function Ext mild generakized anasarca laboratory and microbiology Laboratory Tests 03/12/25 03:08 Test 03/12/25 03:08 Range/Units Serum Glucose 123 H 74-106 mg/dL Problems(with codes): (1) Alcoholic steatohepatitis (2) Cirrhosis of liver (3) Volume overload (4) Hyperbilirubinemia (5) Anemia Prognosis Plan MDS is improving down to 35.2 points MELD score 33 points which is improving and likely to improve further as her renal function has improved Last dialysis was done on 03/09 Renal recovery noticed creatinine is much better and urine output getting better We will hold dialysis for now; will need dialysis catheter removal in next 24 hours if renal function remains stable Continue IV antibiotics and IV ppi Patient tolerating hepatic diet Monitor labs closely Dietary Evaluation Review Comments: Nutrition Recommendation 1) Cardiac + 2gm K msoft diet 2) Consider Ensure high protein 240ml TID if PO intake < 50% 3) Monitor PO intake, lab values, weight trend, and I/O Expected Outcomes/Goals: Lab values to improve Fu 3-5 days Plan discussed with: Patient, Other (ICU Nurse) JACOB BROWN MD Mar 12, 2025 17:47
--- NOTE | 2025-03-12 19:24 | DVHPN2 ---
Subjective DOS: 03/12/2025 Patient seen and examined at bedside. Remains on supplemental oxygen Overnight events reviewed. Reviewed: Care Plan, H&P, Labs, Medications, Previous Orders, Radiology Changes from previous H/P or p: No Changes General: Per HPI Objective Vitals Vital Signs Date Time Temp Pulse Resp B/P (MAP) Pulse Ox O2 Delivery O2 Flow Rate FiO2 03/12/25 18:23 97.7 97 18 134/83 (100) 96 97.7 03/12/25 18:00 Nasal Cannula* 2 28 Intake/Output Intake and Output 03/12/25 07:00 Intake Total 1320 ml Output Total 1850 ml Balance -530 ml Intake Oral 1020 ml IV Total 300 ml Output Urine Total 1850 ml General Appearance: Alert, Oriented X3, Cooperative, No acute distress HEENT: Atraumatic, PERRLA Lungs: Clear to auscultation, Other (Decreased air entry bilaterally) Cardiovascular: Normal S1, Normal S2 Abdomen: Normal bowel sounds, Soft, No tenderness Musculoskeletal: Normal sensory function, Normal motor function Neuro: Normal gait, Normal speech Skin: Dry, Intact Psych/Mental Status: Mental status NL, Mood NL Medications Current Medications Medications Dose Ordered Sig/Hugh Route Start Time Stop Time Status Last Admin Dose Admin Tramadol HCl 50 mg Q6HP PRN PO 03/05/25 00:00 03/12/25 04:48 50 MG Ondansetron HCl 4 mg Q4HPRN PRN IV 03/05/25 11:15 03/06/25 15:46 4 MG Pantoprazole Sodium 40 mg DAILY IV 03/08/25 10:00 03/12/25 09:29 40 MG Methylprednisolone Sodium Succinate 40 mg DAILY IV 03/08/25 10:00 03/12/25 09:30 40 MG Ipratropium [place] 0.5 mg Q6HR NEB 03/08/25 12:00 03/12/25 19:16 0.5 MG Albuterol 2.5 mg Q6HR NEB 03/08/25 12:00 03/12/25 19:16 2.5 MG Morphine Sulfate 1 mg Q3HP PRN IV 03/08/25 12:15 03/11/25 05:59 1 MG Furosemide 40 mg DAILY IV 03/12/25 10:00 03/12/25 09:30 40 MG Lactulose 30 ml DAILY PO 03/12/25 10:00 03/12/25 09:30 30 ML Ceftriaxone Sodium/Dextrose 50 ml @ 50 mls/hr DAILY IV 03/12/25 10:00 03/12/25 09:29 50 MLS/HR Laboratory Results Laboratory Tests 03/12/25 03:08 Chemistry Test 03/12/25 03:07 03/12/25 03:08 Magnesium Level 1.4 mg/dL (1.6-2.6) L Phosphorus Level 2.3 mg/dL (2.4-5.1) L Albumin 3.2 g/dL (3.2-4.8) Calcium Level 8.0 mg/dL (8.7-10.4) L Total Protein 7.6 g/dL (5.7-8.2) Coagulation Test 03/12/25 03:08 Prothrombin Time 19.7 sec (9.3-11.8) H Prothrombin Time INR 1.99 (0.9-1.15) H LFT Test 03/12/25 03:08 Alanine Aminotransferase (ALT) 210 U/L (7-40) H Alkaline Phosphatase 105 U/L (46-116) Aspartate Amino Transferase (AST) 302 U/L (13-40) H Total Bilirubin 7.3 mg/dL (0.2-1.0) H Urinalysis Test 03/08/25 09:00 03/12/25 10:39 Urine Calcium Oxalate Crystals Few (None Seen) Urine Mucus Few (None Seen) Urine Color Light-yellow (Yellow) Urine Clarity Clear (Clear) Urine pH 6.5 (5.0-9.0) Urine Specific [place] 1.006 (1.001-1.035) Urine Protein Negative (Negative) Urine Ketones Negative (Negative) Urine Blood Trace /uL (Negative) H Urine Nitrite Negative (Negative) Urine Bilirubin Negative (Negative) Urine Urobilinogen 2 mg/dL (Negative) H Urine Leukocyte Esterase Negative /uL (Negative) Urine RBC 3 /hpf (0 - 4) Urine Microscopic WBC 2 /HPF (0-5) Urine Squamous Epithelial Cells Few /hpf (<5) Urine Bacteria None seen /hpf (None Seen) Urine Creatinine 5.51 mg/dL (30.0-125.0) L Urine Protein/Creatinine Ratio 1.09 Urine Sodium 124 mmol/L (40-220) Urine Glucose Normal mg/dL (Normal) Urine Total Protein < 6.0 mg/dL (1-14) Microbiology Microbiology Date/Time Source Procedure Growth Status 03/08/25 12:54 Voided Urine Urine Culture - Final Escherichia coli Complete 03/07/25 22:05 Blood Blood Culture - Preliminary NO GROWTH AFTER 72 HOURS OF INCUBATION. Resulted 03/07/25 18:40 Nose MRSA Screen - Final Complete Assessment/Plan Assessment/Plan Impression: Acute hypoxic respiratory failure Dependence on supplemental oxygen Pancytopenia Obesity, BMI 36.4 Shock Renal failure Events: Improved O2 requirements, Remains on supplemental oxygen, 3 LPM NC Continue to taper as tolerated Off pressors, hemodynamically stable. Hemodialysis per Nephrology Follow up Nephrology recs Continue diuresis with Lasix Monitor renal function Continue bronchodilators Continue steroids Continue antibiotics WBC of 12 K Incentive spirometry Elevated ammonia, on lactulose. Hemoglobin trended up to 8.3 g/dL Continue to monitor hemoglobin closely HOB elevation Aspiration precautions Patient is stable for downgrade from the pulmonary standpoint. Poor prognosis Labs and imaging reviewed. Rest of plan as noted below. Plan: Supplemental oxygen Titrate to keep O2 sats above 92%. Pressors as necessary for hemodynamic support Titrate to keep mean arterial pressure greater than 65 mmHg. Bronchodilators. Antibiotics IV steroids Accu-Cheks, ISS PRN. Hemodialysis per Nephrology F/u Nephrology recommendations Monitor renal function. Monitor electrolytes. Supplement as necessary. Monitor ins and outs. Obesity complicates all care GI/DVT prophylaxis. Prognosis: Poor given patient's multiple co-morbidities. Rest of plan per hospitalist and other consultants. Thank you, TYLER Maloney, for allowing me to participate in this patient's care. Further recommendations will depend on the patient's clinical course. Please do not hesitate to contact me if you have any questions or concerns. This medical document was created using an electronic medical record system with [employer] dictation system. Although these documentations are being carefully reviewed, there may still be some phonetic and typographical changes. The errors are purely typographical, due to imperfection on the software program, and do not reflect any compromise in the patient's medical care. Plan discussed with: Patient, Other (ALEJO Bai) Visit Coding Pulmonary Billing Provider: CHERYL MILLER MD Date of Service if different f: Mar 12, 2025 Common Visit Codes: [id number] INP/OBS CARE(HIGH) CHERYL MILLER MD Mar 12, 2025 19:24
[2025-03-13] VITALS (17 sets, daily range): BP systolic 107–127; BP diastolic 62–92; PULSE 69–119; RESP 14–20; TEMP 97.5–98.1; O2SAT 10–100
--- NOTE | 2025-03-13 05:43 | DVH ---
CHEST RADIOGRAPH Indication: chf Technique: Single frontal view of the chest was obtained COMPARISON: XY CHEST XRAY 1 VIEW on DOS: 03/12/25, XY CHEST XRAY 1 VIEW on DOS: 03/11/25, XY CHEST XR AY 1 VIEW on DOS: 03/10/25, XY CHEST PORTABLE on DOS: 03/09/25, XY CHEST PORTABLE on DOS: 03/08/25 FINDINGS: Lines and Tubes: Right internal jugular central venous catheter stable in position. Lungs: Clear Pleura: No effusion. No pneumothorax. Cardiomediastinal contours: Cardiomegaly Bones: Unremarkable IMPRESSION: 1. Cardiomegaly. 2. Right IJ catheter.
[2025-03-13 07:13] LABS: Hematocrit 26.3 % (36.0-46.0); Hemoglobin 8.7 g/dL (12.2-16.2); Mean Corpuscular Hemoglobin 30.5 pg (28.0-32.0); Mean Corpuscular Volume 91.7 fL (80.0-100.0); Nucleated Red Blood Cells % 0.2 %
[2025-03-13 07:29] LABS: Anion Gap 10 (5-15); BUN/Creatinine Ratio 24.6 (10.0-20.0); Blood Urea Nitrogen 14 mg/dL (9-23); Glucose 103 mg/dL (74-106); Potassium 3.9 mmol/L (3.5-5.1); Total Protein 7.0 g/dL (5.7-8.2)
[2025-03-13 07:33] LABS: Alanine Aminotransferase 191 U/L (7-40); Albumin 2.9 g/dL (3.2-4.8); Alkaline Phosphatase 117 U/L (46-116); Bilirubin, Total 6.5 mg/dL (0.2-1.0); Calcium 7.7 mg/dL (8.7-10.4); Carbon Dioxide 31 mmol/L (20-31); Chloride 93 mmol/L (98-107); Sodium 134 mmol/L (136-145)
--- NOTE | 2025-03-13 10:45 | DVHPN2 ---
Progress Note Date Seen: Mar 13, 2025 Medical Necessity Reason Pt with a Central, PICC or Fol: Yes The following are medically ne: Central Line, Stokes Catheter Subjective Review of Systems: RESPIRATORY:Abnormal Other Systems: Patient seen and examined by myself today in follow-up Objective vital signs Vital Sign Date Time Temp Pulse Resp B/P (MAP) Pulse Ox O2 Delivery O2 Flow Rate FiO2 03/13/25 09:00 97.7 102 17 125/80 (95) 97 97.7 03/13/25 06:22 Nasal Cannula 2.0 03/13/25 06:22 28 Total Intake and Output 03/12/25 03/12/25 03/13/25 14:59 22:59 06:59 Intake Total 0 ml 900 ml Output Total 1920 ml Balance -1920 ml 900 ml medications Current Medications Medications Dose Ordered Sig/Hugh Route Start Time Stop Time Status Last Admin Dose Admin Tramadol HCl 50 mg Q6HP PRN PO 03/05/25 00:00 03/13/25 02:21 50 MG Ondansetron HCl 4 mg Q4HPRN PRN IV 03/05/25 11:15 03/06/25 15:46 4 MG Pantoprazole Sodium 40 mg DAILY IV 03/08/25 10:00 03/12/25 09:29 40 MG Ipratropium [place] 0.5 mg Q6HR NEB 03/08/25 12:00 03/13/25 06:20 0.5 MG Albuterol 2.5 mg Q6HR NEB 03/08/25 12:00 03/13/25 06:20 2.5 MG Morphine Sulfate 1 mg Q3HP PRN IV 03/08/25 12:15 03/11/25 05:59 1 MG Furosemide 40 mg DAILY IV 03/12/25 10:00 03/12/25 09:30 40 MG Lactulose 30 ml DAILY PO 03/12/25 10:00 03/12/25 09:30 30 ML Ceftriaxone Sodium/Dextrose 50 ml @ 50 mls/hr DAILY IV 03/12/25 10:00 03/12/25 09:29 50 MLS/HR Examination: LUNGS:Normal, CVS:Normal, MSK:Normal laboratory and microbiology Laboratory Tests 03/13/25 04:40 Test 03/13/25 04:40 Range/Units Serum Glucose 103 74-106 mg/dL Microbiology Date/Time Source Procedure Growth Status 03/08/25 12:54 Voided Urine Urine Culture - Final Escherichia coli Complete 03/07/25 22:05 Blood Blood Culture - Final NO GROWTH AFTER 5 DAYS OF INCUBATION. Complete 03/07/25 18:40 Nose MRSA Screen - Final Complete Problem List/Assessment/Plan Problem List/Assessment/Plan Acute kidney injury secondary hemodynamic mediated, status post intermittent hemodialysis Tricuspid regurg Congestive heart failure exacerbation Alcoholic Liver cirrhosis Hepatic encephalopathy Pericardial effusion Anemia Thrombocytopenia Septic shock Hypomagnesemia Recommendations Kidney function resolved back to normal Increased urine output Strict I&Os Remove Scott hemodialysis catheter I agree with diuresis Magnesium sulfate IV piggyback Lactulose IV antibiotics Cardiology on board We will continue to follow up Plan discussed with: Patient My Orders My Orders Orders - ELZA DUGAN MD Procedure Category Date Status Time Magnesium Harshal PHA 03/13/25 Verified 11:00 Ergocalciferol PHA 03/13/25 Verified (Vitamin D 50,000 10:45 Dietary Evaluation Review Comments: Nutrition Recommendation 1) Cardiac + 2gm K msoft diet 2) Consider Ensure high protein 240ml TID if PO intake < 50% 3) Monitor PO intake, lab values, weight trend, and I/O Expected Outcomes/Goals: Lab values to improve Fu 3-5 days ELZA DUGAN MD Mar 13, 2025 10:45
--- NOTE | 2025-03-13 11:54 | DVHPN2 ---
Subjective Patient reports having generalized weakness. Reviewed: Care Plan, H&P, Labs, Medications, Previous Orders, Radiology Changes from previous H/P or p: Changes General: Per HPI Objective Vitals Vital Signs Date Time Temp Pulse Resp B/P (MAP) Pulse Ox O2 Delivery O2 Flow Rate FiO2 03/13/25 10:43 125/80 03/13/25 09:00 97.7 102 17 97 97.7 03/13/25 06:22 Nasal Cannula 2.0 03/13/25 06:22 28 Intake/Output Intake and Output 03/13/25 07:00 Intake Total 900 ml Output Total 1920 ml Balance -1020 ml Intake Oral 900 ml Output Urine Total 1920 ml # Voids 2 General Appearance: Alert, Oriented X3, Cooperative, No acute distress HEENT: Atraumatic, PERRLA Lungs: Clear to auscultation, Other (Decreased air entry bilaterally) Cardiovascular: Normal S1, Normal S2 Abdomen: Normal bowel sounds, Soft, No tenderness Musculoskeletal: Normal sensory function, Normal motor function Neuro: Normal gait, Normal speech Skin: Dry, Intact Psych/Mental Status: Mental status NL, Mood NL Medications Current Medications Medications Dose Ordered Sig/Hugh Route Start Time Stop Time Status Last Admin Dose Admin Tramadol HCl 50 mg Q6HP PRN PO 03/05/25 00:00 03/13/25 02:21 50 MG Ondansetron HCl 4 mg Q4HPRN PRN IV 03/05/25 11:15 03/06/25 15:46 4 MG Pantoprazole Sodium 40 mg DAILY IV 03/08/25 10:00 03/13/25 10:42 40 MG Ipratropium [place] 0.5 mg Q6HR NEB 03/08/25 12:00 03/13/25 06:20 0.5 MG Albuterol 2.5 mg Q6HR NEB 03/08/25 12:00 03/13/25 06:20 2.5 MG Morphine Sulfate 1 mg Q3HP PRN IV 03/08/25 12:15 03/11/25 05:59 1 MG Furosemide 40 mg DAILY IV 03/12/25 10:00 03/13/25 10:43 40 MG Lactulose 30 ml DAILY PO 03/12/25 10:00 03/13/25 10:41 30 ML Ceftriaxone Sodium/Dextrose 50 ml @ 50 mls/hr DAILY IV 03/12/25 10:00 03/13/25 10:00 50 MLS/HR Magnesium Sulfate/ Dextrose 100 ml @ 100 mls/hr Q1HR IV 03/13/25 11:00 03/13/25 12:59 Ergocalciferol 50,000 unit Q7D PO 03/13/25 10:45 Laboratory Results Laboratory Tests 03/13/25 04:40 Chemistry Test 03/13/25 04:40 Albumin 2.9 g/dL (3.2-4.8) L Calcium Level 7.7 mg/dL (8.7-10.4) L Total Protein 7.0 g/dL (5.7-8.2) LFT Test 03/13/25 04:40 Alanine Aminotransferase (ALT) 191 U/L (7-40) H Alkaline Phosphatase 117 U/L (46-116) H Aspartate Amino Transferase (AST) 211 U/L (13-40) H Total Bilirubin 6.5 mg/dL (0.2-1.0) H Urinalysis Test 03/08/25 09:00 03/12/25 10:39 Urine Calcium Oxalate Crystals Few (None Seen) Urine Mucus Few (None Seen) Urine Color Light-yellow (Yellow) Urine Clarity Clear (Clear) Urine pH 6.5 (5.0-9.0) Urine Specific [place] 1.006 (1.001-1.035) Urine Protein Negative (Negative) Urine Ketones Negative (Negative) Urine Blood Trace /uL (Negative) H Urine Nitrite Negative (Negative) Urine Bilirubin Negative (Negative) Urine Urobilinogen 2 mg/dL (Negative) H Urine Leukocyte Esterase Negative /uL (Negative) Urine RBC 3 /hpf (0 - 4) Urine Microscopic WBC 2 /HPF (0-5) Urine Squamous Epithelial Cells Few /hpf (<5) Urine Bacteria None seen /hpf (None Seen) Urine Creatinine 5.51 mg/dL (30.0-125.0) L Urine Protein/Creatinine Ratio 1.09 Urine Sodium 124 mmol/L (40-220) Urine Glucose Normal mg/dL (Normal) Urine Total Protein < 6.0 mg/dL (1-14) Microbiology Microbiology Date/Time Source Procedure Growth Status 03/08/25 12:54 Voided Urine Urine Culture - Final Escherichia coli Complete 03/07/25 22:05 Blood Blood Culture - Final NO GROWTH AFTER 5 DAYS OF INCUBATION. Complete 03/07/25 18:40 Nose MRSA Screen - Final Complete Labs and/or images reviewed: Labs reviewed by me, Image(s) reviewed by me Assessment/Plan Assessment/Plan Impression: -cirrhosis of the liver -cardiomegaly -thrombocytopenia -acute respiratory failure -ruled out acute systolic heart failure -obesity -portal hypertension -probable RV failure with severe tricuspid regurgitation -acute hypoxic respiratory failure -Complicated Cystitis Plan: Events: No events overnight. Discontinue Stokes catheter. Physical therapy. Weaned off oxygen. -start lactulose -PPI -urine culture positive for E coli, susceptible strain. Blood cultures negative. Deescalate antibiotics to Rocephin 2 g daily -consultations: GI, Nephrology, Cardiology -repeat labs in a.m. Total time spent with patient discussing and formulating plan of care: 35 minutes. This medical document was created using an electronic medical record system with [employer] dictation system. Although this document has been carefully reviewed, there may still be some phonetic and typographical errors. These areas are purely typographical due to imperfections of the software programs, and do not reflect any compromise in the patient's medical care. Plan discussed with: Patient, Other (RN) My Orders Orders - TUCKER GROSS NP Procedure Category Date Status Time Magnesium LAB 03/13/25 Logged 09:49 Pt Request For Service PT 03/13/25 Verified 11:51 Discontinue Stokes PEDRO 03/13/25 Verified Catheter 11:51 Communication Order ORDERS 03/13/25 Verified 11:51 Date of Service: Mar 13, 2025 Billing Provider: TUCKER GROSS NP Common Visit Codes: [id number] INP/OBS CARE(HIGH) TUCKER GROSS NP Mar 13, 2025 11:54
[2025-03-13] MEDS: ERGOCALCIFEROL 50,000 UNIT(1.25MG) CAP PO SCH (12:00)
[2025-03-13] MEDS: MAGNESIUM SULFATE 1GM/100ML 100 ML IV SCH (12:00)
--- NOTE | 2025-03-13 20:08 | DVHPN2 ---
Progress Note - Dictate Date Seen: Mar 13, 2025 Medical Necessity Reason Pt with a Central, PICC or Fol: Yes The following are medically ne: Central Line, Stokes Catheter Subjective 39-year-old lady with alcoholic cirrhosis congestive heart failure recent alcohol abuse quit one month ago Patient is awake arousable and responsive ; no active bleeding reported Hemoglobin 8.7, S/P 1 unit PRBC Liver enzymes are trending down Ammonia is elevated to 67 On a hepatic diet, no bowel movement recorded vital signs Vital Sign Date Time Temp Pulse Resp B/P (MAP) Pulse Ox O2 Delivery O2 Flow Rate FiO2 03/13/25 19:42 94 Nasal Cannula 2.0 03/13/25 19:42 112 20 03/13/25 19:42 28 03/13/25 17:00 97.5 122/78 (93) 97.5 Total Intake and Output 03/12/25 03/12/25 03/13/25 15:00 23:00 07:00 Intake Total 0 ml 900 ml Output Total 1920 ml Balance -1920 ml 900 ml medications Current Medications Medications Dose Ordered Sig/Hugh Route Start Time Stop Time Status Last Admin Dose Admin Tramadol HCl 50 mg Q6HP PRN PO 03/05/25 00:00 03/13/25 02:21 50 MG Ondansetron HCl 4 mg Q4HPRN PRN IV 03/05/25 11:15 03/06/25 15:46 4 MG Pantoprazole Sodium 40 mg DAILY IV 03/08/25 10:00 03/13/25 10:42 40 MG Ipratropium [place] 0.5 mg Q6HR NEB 03/08/25 12:00 03/13/25 19:48 0.5 MG Albuterol 2.5 mg Q6HR NEB 03/08/25 12:00 03/13/25 19:42 2.5 MG Morphine Sulfate 1 mg Q3HP PRN IV 03/08/25 12:15 03/11/25 05:59 1 MG Furosemide 40 mg DAILY IV 03/12/25 10:00 03/13/25 10:43 40 MG Lactulose 30 ml DAILY PO 03/12/25 10:00 03/13/25 10:41 30 ML Ceftriaxone Sodium/Dextrose 50 ml @ 50 mls/hr DAILY IV 03/12/25 10:00 03/13/25 10:00 50 MLS/HR Ergocalciferol 50,000 unit Q7D PO 03/13/25 10:45 03/13/25 12:00 50,000 UNIT objective General Appearance: Alert, Oriented X3, Cooperative, No acute distress HEENT: Atraumatic, PERRLA; sclera icteric Lungs: Clear to auscultation, Cardiovascular: Normal S1, Normal S2 Abdomen: Normal bowel sounds, Soft, No tenderness Musculoskeletal: Normal sensory function, Normal motor function Ext mild generakized anasarca laboratory and microbiology Laboratory Tests 03/13/25 04:40 Test 03/13/25 04:40 Range/Units Serum Glucose 103 74-106 mg/dL Problems(with codes): (1) Cirrhosis of liver (2) Alcoholic steatohepatitis (3) Volume overload (4) Anemia (5) Hyperbilirubinemia Prognosis Plan Continue Protonix, IV antibiotics, oral lactulose Give vitamin K to correct coagulopathy IV Steroids were discontinued; recommend oral prednisone as MDS today is 46.5 points MELD score 23 points which is improving and likely to improve further as her renal function has improved Last dialysis was done on 03/09 Renal recovery noticed creatinine is much better and urine output getting better Will need dialysis catheter removal in next 24 hours if renal function remains stable Continue IV antibiotics Patient tolerating hepatic diet Monitor labs closely Dietary Evaluation Review Comments: Nutrition Recommendation 1) Cardiac + 2gm K msoft diet 2) Consider Ensure high protein 240ml TID if PO intake < 50% 3) Monitor PO intake, lab values, weight trend, and I/O Expected Outcomes/Goals: Lab values to improve Fu 3-5 days Plan discussed with: Patient JACOB BROWN MD Mar 13, 2025 20:08
[2025-03-13] MEDS: phytonadione 10 MG in SODIUM CHL 0.9% 50 ML IV ONE (21:54)
--- NOTE | 2025-03-13 23:50 | DVHPN2 ---
Subjective DOS: 03/13/2025 Patient seen and examined at bedside. Currently on room air. Overnight events reviewed. Reviewed: Care Plan, H&P, Labs, Medications, Previous Orders, Radiology Changes from previous H/P or p: No Changes General: Per HPI Objective Vitals Vital Signs Date Time Temp Pulse Resp B/P (MAP) Pulse Ox O2 Delivery O2 Flow Rate FiO2 03/13/25 21:00 98.1 119 18 119/78 (92) 95 98.1 03/13/25 20:00 Nasal Cannula* 1 N/A Oxymizer Intake/Output Intake and Output 03/13/25 07:00 Intake Total 900 ml Output Total 1920 ml Balance -1020 ml Intake Oral 900 ml Output Urine Total 1920 ml # Voids 2 General Appearance: Alert, Oriented X3, Cooperative, No acute distress HEENT: Atraumatic, PERRLA Lungs: Clear to auscultation, Other (Decreased air entry bilaterally) Cardiovascular: Normal S1, Normal S2 Abdomen: Normal bowel sounds, Soft, No tenderness Musculoskeletal: Normal sensory function, Normal motor function Neuro: Normal gait, Normal speech Skin: Dry, Intact Psych/Mental Status: Mental status NL, Mood NL Medications Current Medications Medications Dose Ordered Sig/Hugh Route Start Time Stop Time Status Last Admin Dose Admin Tramadol HCl 50 mg Q6HP PRN PO 03/05/25 00:00 03/13/25 02:21 50 MG Ondansetron HCl 4 mg Q4HPRN PRN IV 03/05/25 11:15 03/06/25 15:46 4 MG Pantoprazole Sodium 40 mg DAILY IV 03/08/25 10:00 03/13/25 10:42 40 MG Ipratropium [place] 0.5 mg Q6HR NEB 03/08/25 12:00 03/13/25 19:48 0.5 MG Albuterol 2.5 mg Q6HR NEB 03/08/25 12:00 03/13/25 19:42 2.5 MG Morphine Sulfate 1 mg Q3HP PRN IV 03/08/25 12:15 03/11/25 05:59 1 MG Furosemide 40 mg DAILY IV 03/12/25 10:00 03/13/25 10:43 40 MG Lactulose 30 ml DAILY PO 03/12/25 10:00 03/13/25 10:41 30 ML Ceftriaxone Sodium/Dextrose 50 ml @ 50 mls/hr DAILY IV 03/12/25 10:00 03/13/25 10:00 50 MLS/HR Ergocalciferol 50,000 unit Q7D PO 03/13/25 10:45 03/13/25 12:00 50,000 UNIT Prednisone 20 mg DAILY PO 03/14/25 10:00 Laboratory Results Laboratory Tests 03/13/25 04:40 Chemistry Test 03/13/25 04:40 03/13/25 17:18 Albumin 2.9 g/dL (3.2-4.8) L Calcium Level 7.7 mg/dL (8.7-10.4) L Total Protein 7.0 g/dL (5.7-8.2) Magnesium Level 1.3 mg/dL (1.6-2.6) L LFT Test 03/13/25 04:40 Alanine Aminotransferase (ALT) 191 U/L (7-40) H Alkaline Phosphatase 117 U/L (46-116) H Aspartate Amino Transferase (AST) 211 U/L (13-40) H Total Bilirubin 6.5 mg/dL (0.2-1.0) H Urinalysis Test 03/08/25 09:00 03/12/25 10:39 Urine Calcium Oxalate Crystals Few (None Seen) Urine Mucus Few (None Seen) Urine Color Light-yellow (Yellow) Urine Clarity Clear (Clear) Urine pH 6.5 (5.0-9.0) Urine Specific [place] 1.006 (1.001-1.035) Urine Protein Negative (Negative) Urine Ketones Negative (Negative) Urine Blood Trace /uL (Negative) H Urine Nitrite Negative (Negative) Urine Bilirubin Negative (Negative) Urine Urobilinogen 2 mg/dL (Negative) H Urine Leukocyte Esterase Negative /uL (Negative) Urine RBC 3 /hpf (0 - 4) Urine Microscopic WBC 2 /HPF (0-5) Urine Squamous Epithelial Cells Few /hpf (<5) Urine Bacteria None seen /hpf (None Seen) Urine Creatinine 5.51 mg/dL (30.0-125.0) L Urine Protein/Creatinine Ratio 1.09 Urine Sodium 124 mmol/L (40-220) Urine Glucose Normal mg/dL (Normal) Urine Total Protein < 6.0 mg/dL (1-14) Microbiology Microbiology Date/Time Source Procedure Growth Status 03/08/25 12:54 Voided Urine Urine Culture - Final Escherichia coli Complete 03/07/25 22:05 Blood Blood Culture - Final NO GROWTH AFTER 5 DAYS OF INCUBATION. Complete 03/07/25 18:40 Nose MRSA Screen - Final Complete Assessment/Plan Assessment/Plan Impression: Acute hypoxic respiratory failure Pancytopenia Obesity, BMI 36.4 Shock Renal failure Events: Improved O2 requirements (tapered off 3 LPM NC) Currently on room air. No distress Off pressors, hemodynamically stable. Hemodialysis per Nephrology Nephrology recs appreciated Continue diuresis with Lasix Monitor renal function Continue bronchodilators/albuterol HFA Continue steroids Continue antibiotics WBC trended up to 14.4 K Incentive spirometry Pain control Avoid oversedation Elevated ammonia, on lactulose. Protonix for GI ppx Hemoglobin stable at 8.7 g/dL Continue to monitor hemoglobin closely HOB elevation Aspiration precautions Poor prognosis Labs and imaging reviewed. Rest of plan as noted below. Plan: Supplemental oxygen PRN Titrate to keep O2 sats above 92%. Pressors as necessary for hemodynamic support Titrate to keep mean arterial pressure greater than 65 mmHg. Bronchodilators. Antibiotics IV steroids Accu-Cheks, ISS PRN. Hemodialysis per Nephrology F/u Nephrology recommendations Monitor renal function. Monitor electrolytes. Supplement as necessary. Monitor ins and outs. Obesity complicates all care GI/DVT prophylaxis. Prognosis: Poor given patient's multiple co-morbidities. Rest of plan per hospitalist and other consultants. Thank you, TYLER Maloeny, for allowing me to participate in this patient's care. Further recommendations will depend on the patient's clinical course. Please do not hesitate to contact me if you have any questions or concerns. This medical document was created using an electronic medical record system with [employer] dictation system. Although these documentations are being carefully reviewed, there may still be some phonetic and typographical changes. The errors are purely typographical, due to imperfection on the software program, and do not reflect any compromise in the patient's medical care. Plan discussed with: Patient, Other (ALEJO Rodney) Visit Coding Pulmonary Billing Provider: CHERYL MILLER MD Date of Service if different f: Mar 13, 2025 Common Visit Codes: [id number] INP/OBS CARE(HIGH) CHERYL MILLER MD Mar 13, 2025 23:50
[2025-03-14] VITALS (14 sets, daily range): BP systolic 109–128; BP diastolic 69–87; PULSE 100–114; RESP 16–20; TEMP 97.4–98.2; O2SAT 92–100
[2025-03-14] MEDS: predniSONE 20 MG TAB PO SCH (10:03)
--- NOTE | 2025-03-14 10:38 | DVHPN2 ---
Progress Note Date Seen: Mar 14, 2025 Medical Necessity Reason Pt with a Central, PICC or Fol: Yes The following are medically ne: Central Line, Stokes Catheter Subjective Patient reports: No new complaints Other Systems: Patient seen and examined by myself today in follow-up Objective vital signs Vital Sign Date Time Temp Pulse Resp B/P (MAP) Pulse Ox O2 Delivery O2 Flow Rate FiO2 03/14/25 10:04 121/82 03/14/25 08:00 103 03/14/25 07:38 20 100 03/14/25 07:32 1.0 03/14/25 07:32 Nasal Cannula* 24 03/14/25 05:00 98.2 98.2 Total Intake and Output 03/13/25 03/13/25 03/14/25 15:00 23:00 07:00 Intake Total 660 ml 941 ml 1375 ml Output Total 3025 ml 10 ml Balance 660 ml -2084 ml 1365 ml medications Current Medications Medications Dose Ordered Sig/Hugh Route Start Time Stop Time Status Last Admin Dose Admin Tramadol HCl 50 mg Q6HP PRN PO 03/05/25 00:00 03/14/25 00:01 50 MG Ondansetron HCl 4 mg Q4HPRN PRN IV 03/05/25 11:15 03/06/25 15:46 4 MG Pantoprazole Sodium 40 mg DAILY IV 03/08/25 10:00 03/14/25 10:04 40 MG Ipratropium [place] 0.5 mg Q6HR NEB 03/08/25 12:00 03/14/25 07:32 0.5 MG Albuterol 2.5 mg Q6HR NEB 03/08/25 12:00 03/14/25 07:32 2.5 MG Morphine Sulfate 1 mg Q3HP PRN IV 03/08/25 12:15 03/11/25 05:59 1 MG Furosemide 40 mg DAILY IV 03/12/25 10:00 03/14/25 10:04 40 MG Lactulose 30 ml DAILY PO 03/12/25 10:00 03/13/25 10:41 30 ML Ceftriaxone Sodium/Dextrose 50 ml @ 50 mls/hr DAILY IV 03/12/25 10:00 03/14/25 10:04 50 MLS/HR Ergocalciferol 50,000 unit Q7D PO 03/13/25 10:45 03/13/25 12:00 50,000 UNIT Prednisone 20 mg DAILY PO 03/14/25 10:00 03/14/25 10:03 20 MG Examination: LUNGS:Normal, CVS:Normal, MSK:Normal laboratory and microbiology Laboratory Tests 03/13/25 04:40 Test 03/13/25 04:40 Range/Units Serum Glucose 103 74-106 mg/dL Microbiology Date/Time Source Procedure Growth Status 03/08/25 12:54 Voided Urine Urine Culture - Final Escherichia coli Complete 03/07/25 22:05 Blood Blood Culture - Final NO GROWTH AFTER 5 DAYS OF INCUBATION. Complete 03/07/25 18:40 Nose MRSA Screen - Final Complete Problem List/Assessment/Plan Problem List/Assessment/Plan Acute kidney injury secondary hemodynamic mediated, status post intermittent hemodialysis Tricuspid regurg Congestive heart failure exacerbation Alcoholic Liver cirrhosis Hepatic encephalopathy Pericardial effusion Anemia Thrombocytopenia Septic shock Hypomagnesemia Hyponatremia due to excess H2O Recommendations Kidney function resolved back to normal Increased urine output Strict I&Os Fluid restriction I agree with diuresis Magnesium sulfate IV piggyback Lactulose IV antibiotics Cardiology on board We will continue to follow up Plan discussed with: Patient My Orders My Orders Orders - ELZA DUGAN MD Procedure Category Date Status Time Ergocalciferol PHA 03/13/25 In Process (Vitamin D 50,000 10:45 Magnesium Harshal PHA 03/14/25 Transmitted 11:00 Dietary Evaluation Review Comments: Nutrition Recommendation 1) Cardiac + 2gm K msoft diet 2) Consider Ensure high protein 240ml TID if PO intake < 50% 3) Monitor PO intake, lab values, weight trend, and I/O Expected Outcomes/Goals: Lab values to improve Fu 3-5 days ELZA DUGAN MD Mar 14, 2025 10:38
[2025-03-14] MEDS ORDERED: FERR-7 PO (11:13)
[2025-03-14] MEDS ORDERED: LACT10SO3 PO (11:13)
[2025-03-14] MEDS ORDERED: SPIR25TA8 PO (11:13)
[2025-03-14] MEDS ORDERED: LEVO500T91 PO (11:13)
[2025-03-14] MEDS ORDERED: MAGNESIUM OXIDE 400 MG TAB PO ONE (11:15)
--- NOTE | 2025-03-14 11:30 | DVHDS2 ---
Discharge Summary Date of Admission Mar 04, 2025 at 23:57 Date of Discharge: Mar 14, 2025 Admitting Diagnosis Acute respiratory distress Labs/Diagnostic Data: Laboratory Results Test 03/13/25 17:18 03/13/25 04:40 03/12/25 10:39 03/12/25 10:35 Magnesium Level 1.3 mg/dL (1.6-2.6) White Blood Count 14.4 10^3/uL (4.4-10.8) Red Blood Count 2.87 10^6/uL (4.0-5.20) Hemoglobin 8.7 g/dL (12.2-16.2) Hematocrit 26.3 % (36.0-46.0) Mean Corpuscular Volume 91.7 fL (80.0-100.0) Mean Corpuscular Hemoglobin 30.5 pg (28.0-32.0) Mean Corpuscular Hemoglobin Concent 33.3 g/dL (32.0-36.0) Red Cell Distribution Width 22.9 % (11.8-14.3) Platelet Count 68 10^3/uL (140-450) Mean Platelet Volume 8.8 fL (6.9-10.8) Neutrophils (%) (Auto) 75.9 % (37.0-80.0) Lymphocytes (%) (Auto) 9.8 % (10.0-50.0) Monocytes (%) (Auto) 14.1 % (0.0-12.0) Eosinophils (%) (Auto) 0.1 % (0.0-7.0) Basophils (%) (Auto) 0.1 % (0.0-2.0) Neutrophils # (Auto) 10.9 10 ^3/uL (1.6-8.6) Lymphocytes # (Auto) 1.4 10 ^3/uL (0.4-5.4) Monocytes # (Auto) 2.0 10 ^3/uL (0-1.3) Eosinophils # (Auto) 0 10 ^3/uL (0-0.8) Basophils # (Auto) 0 10 ^3/uL (0-0.2) Nucleated Red Blood Cells 0.2 % Sodium Level 134 mmol/L (136-145) Potassium Level 3.9 mmol/L (3.5-5.1) Chloride Level 93 mmol/L (98-107) Carbon Dioxide Level 31 mmol/L (20-31) Anion Gap 10 (5-15) Blood Urea Nitrogen 14 mg/dL (9-23) Creatinine 0.57 mg/dL (0.550-1.02) Glomerular Filtration Rate Calc 120 mL/min (>90) BUN/Creatinine Ratio 24.6 (10.0-20.0) Serum Glucose 103 mg/dL (74-106) Calcium Level 7.7 mg/dL (8.7-10.4) Total Bilirubin 6.5 mg/dL (0.2-1.0) Aspartate Amino Transferase (AST) 211 U/L (13-40) Alanine Aminotransferase (ALT) 191 U/L (7-40) Alkaline Phosphatase 117 U/L (46-116) Total Protein 7.0 g/dL (5.7-8.2) Albumin 2.9 g/dL (3.2-4.8) Urine Color Light-yellow (Yellow) Urine Clarity Clear (Clear) Urine pH 6.5 (5.0-9.0) Urine Specific [place] 1.006 (1.001-1.035) Urine Protein Negative (Negative) Urine Ketones Negative (Negative) Urine Blood Trace /uL (Negative) Urine Nitrite Negative (Negative) Urine Bilirubin Negative (Negative) Urine Urobilinogen 2 mg/dL (Negative) Urine Leukocyte Esterase Negative /uL (Negative) Urine RBC 3 /hpf (0 - 4) Urine Microscopic WBC 2 /HPF (0-5) Urine Squamous Epithelial Cells Few /hpf (<5) Urine Bacteria None seen /hpf (None Seen) Urine Creatinine 5.51 mg/dL (30.0-125.0) Urine Protein/Creatinine Ratio 1.09 Urine Sodium 124 mmol/L (40-220) Urine Glucose Normal mg/dL (Normal) Urine Total Protein < 6.0 mg/dL (1-14) Vitamin D 25-Hydroxy 18.6 ng/mL (30.0-100) Test 03/12/25 03:08 03/12/25 03:07 03/09/25 12:26 03/09/25 03:00 Prothrombin Time 19.7 sec (9.3-11.8) Prothrombin Time INR 1.99 (0.9-1.15) Ammonia 67 umol/L (11-32) Random Vancomycin Level 6.6 ug/mL (5-10) Phosphorus Level 2.3 mg/dL (2.4-5.1) Blood Gas Specimen Type Arterial Blood Gas Sample Site Right radial Blood Gas Patient Temperature 37.0 Arterial Blood Date Drawn Arterial Blood pH 7.491 (7.350-7.450) Arterial Blood Partial Pressure CO2 35.7 mmHg (32.0-45.0) Arterial Blood Partial Pressure O2 74.2 mmHg (83.0-108.0) Arterial Blood HCO3 26.7 mmol/L (21.0-28.0) Arterial Blood Oxygen Saturation 93.8 % (94.0-98.0) Arterial Blood Base Excess 3.2 mmol/L (-2.0-3.0) Arterial Blood Oxyhemoglobin 92.0 % (94.0-98.0) Arterial Blood Carboxyhemoglobin 1.6 % (0.5-1.5) Arterial Blood Methemoglobin 0.3 % (0.0-1.5) Cheikh Test Yes Blood Gas Total Hemoglobin 8.70 g/dL (12.0-16.0) Blood Gas Liter Flow 8.00 Blood Gas Modality Mask - simple FiO2 % 50.0 Platelet Estimate Decreased Large Platelets Few Anisocytosis (manual) Slight Test 03/08/25 17:45 03/08/25 15:16 03/08/25 09:10 03/08/25 09:00 Iron Level 21 ug/dL (50-170) Total Iron Binding Capacity 296 ug/dL (250-425) Percent Iron Saturation 7.1 % (15-50) Ferritin 109.3 ng/mL (10-291) Hepatitis A IgM Antibody Negative Hepatitis B Surface Antigen Negative (Negative) Hepatitis B Core IgM Antibody Negative (Negative) Hepatitis C Antibody Negative (Negative) Differential Total Cells Counted 100.0 (100) Neutrophils % (Manual) 57 (37.0-80.0) Band Neutrophils % (Manual) 8 Lymphocytes % (Manual) 18 (10.0-50.0) Monocytes % (Manual) 17 (0-12) Eosinophils % (Manual) 0 (0-7) Basophils % (Manual) 0 (0.0-2.0) Metamyelocytes % (manual) 0 Myelocytes % (Manual) 0 Promyelocytes % (Manual) 0 Blast Cells % (Manual) 0 Reactive Lymphocytes 0 Urine Calcium Oxalate Crystals Few (None Seen) Urine Mucus Few (None Seen) Urine Opiates Screen Neg (NEGATIVE) Urine Fentanyl Screen Neg (NEGATIVE) Urine Barbiturates Screen Neg (NEGATIVE) Urine Phencyclidine Screen Neg (NEGATIVE) Urine Amphetamines Screen Neg (NEGATIVE) Urine Benzodiazepines Screen Neg (NEGATIVE) Urine Cocaine Screen Neg (NEGATIVE) Urine Cannabinoids Screen Neg (NEGATIVE) Test 03/08/25 08:32 03/07/25 23:00 03/07/25 22:05 03/07/25 19:17 POC Glucose 101 mg/dl (70-106) Influenza Type A Antigen Negative (Negative) Influenza Type B Antigen Negative (Negative) SARS-CoV-2 Antigen (Rapid) Negative (NEGATIVE) Free Thyroxine (T4) Calculated 0.92 ng/dL (0.89-1.76) Total Triiodothyronine (TT3) 0.50 ng/mL (0.60-1.81) Acetaminophen Level < 2.0 UG/ML (10.0-20.0) Lactic Acid Level 4.5 mmol/L (0.4-2.0) Test 03/07/25 15:18 03/07/25 15:05 03/06/25 04:46 03/05/25 00:18 Erythrocyte Sedimentation Rate 99 mm/hr (0-20) D-Dimer, Quantitative 7.12 mg/L FEU (0.0-0.49) Hemoglobin A1c < 3.8 % A1C (<5.7) C-Reactive Protein High Sensitivity 1.80 mg/dL (<1.0) B-Type Natriuretic Peptide 1061.65 pg/mL (0-100) Triglycerides Level 134 mg/dL (< 150) Cholesterol Level 320 mg/dL (< 200) LDL Cholesterol 135 mg/dL (< 100) HDL Cholesterol 60 mg/dL (40-59) Vitamin B12 Level > 2000 pg/mL (211-911) Thyroid Stimulating Hormone (TSH) 9.92 uIU/mL (0.55-4.78) Beta HCG, Quantitative 0.1 mIU/mL (1.5-4.2) Plasma/Serum Blood Alcohol < 3.0 mg/dL (<10) Blood Gas Critical Value Read Back yes Blood Gas Notified Whom farm equipment engineer devante Blood Gas Notified Time Blood Gas Notified By form setter helper andre Activated Partial Thromboplast Time 32.0 SEC (24.5-34.5) Troponin I High Sensitivity 32 ng/L (</=34) Other Laboratory Tests 03/13/25 04:40 Brief Hx & Hospital Course: History of Present Illness 39-year-old female presents for evaluation of shortness for breath. Patient endorses a one-week history of worsening shortness for breath with mild exertion. She also reports mild chest tightness. No fever or chills. She does report a history of liver disease secondary to alcohol abuse. Course of hospitalization: Patient had a challenging course while in the hospital, with worsening clinical status including septic shock with vasopressor therapy as well as acute kidney injury requiring hemodialysis. Mcnamara cultures were performed with patient growing E coli in the urine. Empiric antibiotics were de-escalated to IV Rocephin. Patient's renal function has apparent back to baseline with dialysis catheter removed. Patient has been weaned off of oxygen. Given patient's cardiomegaly noted on chest x-ray, cardiology consultation was placed. Patient underwent transthoracic echocardiogram with findings of elevated RV pressures as well as serially dilated right ventricle with tricuspid regurgitation. No further recommendations were provided by Cardiology. Patient has anasarca has also resolved. She is ambulating with a walker. Patient was noted to have severe magnesium deficiency today, at 1.3. She received 3 g IV. Discharge planning was discussed with the patient including follow up with the discharge clinic in 1 week, as was being discharged home on Levaquin 500 mg p.o. daily x7 days, spironolactone 25 mg p.o. b.i.d., lactulose 10 g p.o. daily, and iron supplementation 325 mg p.o. twice a day. She is agreeable with discharge plan. All questions answered. Physical examination General: Alert and Oriented x3. No acute distress. Well-nourished. Eyes: EOMI. Anicteric. HENT: Moist mucous membranes. Lungs: Clear to auscultation bilaterally. No accessory muscle use. Cardiovascular: Regular rate and rhythm. No murmur. No JVD. Abdomen: Soft, non-tender and non-distended. No palpable masses. Extremities: No edema. Non-tender. Skin: No rashes or lesions. Warm. Neurologic: No focal neurological deficits. CN II-XII grossly intact, but not individually tested. Psychiatric: Cooperative. Appropriate mood and affect. Total time spent with patient discussing and formulating plan of care: 35 minutes. This medical document was created using an electronic medical record system with [employer] dictation system. Although this document has been carefully reviewed, there may still be some phonetic and typographical errors. These areas are purely typographical due to imperfections of the software programs, and do not reflect any compromise in the patient's medical care. Consults/Reason for consult Cardiology: Cardiomegaly Nephrology: Acute kidney injury with hemodialysis Condition at Discharge: Fair Final Diagnosis/Problems List Severe sepsis with shock -cirrhosis of the liver -cardiomegaly -thrombocytopenia -acute respiratory failure -ruled out acute systolic heart failure -obesity -portal hypertension -probable RV failure with severe tricuspid regurgitation -acute hypoxic respiratory failure -Complicated Cystitis Discharge Disposition: Home Discharge Instruct/Medications Diet: Cardiac 2g Na,low cholest Activity: No Restrictions, As Tolerated Follow Up/Referral: Discharge clinic in 1 week Medications: Levaquin 500 mg p.o. daily x7 days Spironolactone 25 mg p.o. b.i.d. Lactulose 10 g p.o. daily Iron sulfate 325 mg p.o. b.i.d. Scheduled Ferrous Sulfate (Iron), 325 MG PO BID Lactulose (Lactulose), 10 GM PO DAILY Levofloxacin Hemihydrate (Levaquin 500 Mg), 1 TAB PO DAILY Spironolactone (Spironolactone), 25 MG PO BID Miscellaneous Medications Furosemide (Furosemide), 20 MG PO, (Reported) 36 Discharge Statement: "Patient was advised to return to the ER or call 911 if any headaches, dizziness, shortness of breath, chest pain, abdominal pain, bleeding, fevers, or worsening of medical condition. Patient was counseled about treatment plan, medications, possible side effects, patientverbalized understanding. All questions were answered to the best of my ability. This discharge took greater then 30 minutes in planning, reviewing documentation, counseling the patient, and discussing with other team members." ASSESSMENT ASSESSMENT Assessment Severe sepsis with shock Date of Service: Mar 14, 2025 Billing Provider: TUCKER GROSS NP Common Visit Codes: 50403-MCS/OBS DISCH DAY >30min TUCKER GROSS NP Mar 14, 2025 11:30
[2025-03-14] MEDS: MAGNESIUM SULFATE 1GM/100ML 100 ML IV SCH (11:51)
[2025-03-14] MEDS: SPIRONOLACTONE 25 MG TAB PO SCH (11:51)
[2025-03-14] MEDS: IRON SUCROSE COMPLEX 110 ML IV SCH (16:37)
--- NOTE | 2025-03-14 18:29 | DVHPN2 ---
Progress Note Date Seen: Mar 14, 2025 Resident Creating Document: FAY FELIZ RESIDENT Medical Necessity Reason Pt with a Central, PICC or Fol: Yes The following are medically ne: Central Line Subjective Review of Systems Patient seen and examined at the bedside Denies any abdominal pain, nausea or vomiting reports regular bowel movements Objective vital signs Vital Sign Date Time Temp Pulse Resp B/P (MAP) Pulse Ox O2 Delivery O2 Flow Rate FiO2 03/14/25 16:50 97.7 111 17 109/77 (88) 93 97.7 03/14/25 15:17 8.0 50 03/14/25 12:26 Nasal Cannula* Total Intake and Output 03/13/25 03/13/25 03/14/25 15:00 23:00 07:00 Intake Total 660 ml 941 ml 1375 ml Output Total 3025 ml 10 ml Balance 660 ml -2084 ml 1365 ml medications Current Medications Medications Dose Ordered Sig/Hugh Route Start Time Stop Time Status Last Admin Dose Admin Tramadol HCl 50 mg Q6HP PRN PO 03/05/25 00:00 03/14/25 00:01 50 MG Ondansetron HCl 4 mg Q4HPRN PRN IV 03/05/25 11:15 03/06/25 15:46 4 MG Pantoprazole Sodium 40 mg DAILY IV 03/08/25 10:00 03/14/25 10:04 40 MG Ipratropium [place] 0.5 mg Q6HR NEB 03/08/25 12:00 03/14/25 12:26 0.5 MG Albuterol 2.5 mg Q6HR NEB 03/08/25 12:00 03/14/25 12:27 2.5 MG Morphine Sulfate 1 mg Q3HP PRN IV 03/08/25 12:15 03/11/25 05:59 1 MG Furosemide 40 mg DAILY IV 03/12/25 10:00 03/14/25 10:04 40 MG Lactulose 30 ml DAILY PO 03/12/25 10:00 03/13/25 10:41 30 ML Ceftriaxone Sodium/Dextrose 50 ml @ 50 mls/hr DAILY IV 03/12/25 10:00 03/14/25 10:04 50 MLS/HR Ergocalciferol 50,000 unit Q7D PO 03/13/25 10:45 03/13/25 12:00 50,000 UNIT Prednisone 20 mg DAILY PO 03/14/25 10:00 03/14/25 10:03 20 MG Spironolactone 25 mg BIDD PO 03/14/25 10:45 03/14/25 11:51 25 MG Iron Sucrose 110 ml @ 110 mls/hr DAILY@1200 IV 03/14/25 12:00 03/18/25 12:59 03/14/25 16:37 110 MLS/HR Examination General Appearance: Alert, Oriented X3, Cooperative, No acute distress HEENT: Atraumatic, PERRLA; sclera icteric Lungs: Clear to auscultation, Cardiovascular: Normal S1, Normal S2 Abdomen: Normal bowel sounds, Soft, No tenderness Musculoskeletal: Normal sensory function, Normal motor function Ext mild generakized anasarca laboratory and microbiology Laboratory Tests 03/13/25 04:40 Test 03/13/25 04:40 Range/Units Serum Glucose 103 74-106 mg/dL Microbiology Date/Time Source Procedure Growth Status 03/08/25 12:54 Voided Urine Urine Culture - Final Escherichia coli Complete 03/07/25 22:05 Blood Blood Culture - Final NO GROWTH AFTER 5 DAYS OF INCUBATION. Complete 03/07/25 18:40 Nose MRSA Screen - Final Complete Problem List/Assessment/Plan Problem List/Assessment/Plan Assessment Liver cirrhosis likely alcoholic, meld Na 23 Possible acute cholecystitis Alcoholic liver disease, MDF 41 Acute hypoxic respiratory failure Right heart failure Pericardial effusion Plan - given high MDF, on oral prednisolone 40 mg daily - Protonix 40 mg daily IV - MELD score is improving - monitor liver functions - continue hepatic diet Once the patient has a discharged recommend to follow up in the GI clinic in the outpatient in 2 weeks Patient advised to strictly abstain from alcohol Plan discussed with Dr. Pathak Plan discussed with: Patient, Other (RN ) Dietary Evaluation Review Comments: Nutrition Recommendation 1) Cardiac + 2gm K msoft diet 2) Consider Ensure high protein 240ml TID if PO intake < 50% 3) Monitor PO intake, lab values, weight trend, and I/O Expected Outcomes/Goals: Lab values to improve Fu 3-5 days FAY FELIZ RESIDENT Mar 14, 2025 18:28
--- NOTE | 2025-03-14 22:46 | DVHPN2 ---
Subjective DOS: 03/14/2025 Patient seen and examined at bedside. Remains on room air. Overnight events reviewed. Reviewed: Care Plan, H&P, Labs, Medications, Previous Orders, Radiology Changes from previous H/P or p: No Changes General: Per HPI Objective Vitals Vital Signs Date Time Temp Pulse Resp B/P (MAP) Pulse Ox O2 Delivery O2 Flow Rate FiO2 03/14/25 17:46 97.7 111 17 93 03/14/25 16:50 109/77 (88) 03/14/25 15:17 8.0 50 03/14/25 12:26 Nasal Cannula* Intake/Output Intake and Output 03/14/25 07:00 Intake Total 2976 ml Output Total 3035 ml Balance -59 ml Intake Oral 2925 ml IV Total 51 ml Output Urine Total 3035 ml General Appearance: Alert, Oriented X3, Cooperative, No acute distress HEENT: Atraumatic, PERRLA Lungs: Clear to auscultation, Other (Decreased air entry bilaterally) Cardiovascular: Normal S1, Normal S2 Abdomen: Normal bowel sounds, Soft, No tenderness Musculoskeletal: Normal sensory function, Normal motor function Neuro: Normal gait, Normal speech Skin: Dry, Intact Psych/Mental Status: Mental status NL, Mood NL Laboratory Results Laboratory Tests 03/13/25 04:40 Urinalysis Test 03/08/25 09:00 03/12/25 10:39 Urine Calcium Oxalate Crystals Few (None Seen) Urine Mucus Few (None Seen) Urine Color Light-yellow (Yellow) Urine Clarity Clear (Clear) Urine pH 6.5 (5.0-9.0) Urine Specific [place] 1.006 (1.001-1.035) Urine Protein Negative (Negative) Urine Ketones Negative (Negative) Urine Blood Trace /uL (Negative) H Urine Nitrite Negative (Negative) Urine Bilirubin Negative (Negative) Urine Urobilinogen 2 mg/dL (Negative) H Urine Leukocyte Esterase Negative /uL (Negative) Urine RBC 3 /hpf (0 - 4) Urine Microscopic WBC 2 /HPF (0-5) Urine Squamous Epithelial Cells Few /hpf (<5) Urine Bacteria None seen /hpf (None Seen) Urine Creatinine 5.51 mg/dL (30.0-125.0) L Urine Protein/Creatinine Ratio 1.09 Urine Sodium 124 mmol/L (40-220) Urine Glucose Normal mg/dL (Normal) Urine Total Protein < 6.0 mg/dL (1-14) Microbiology Microbiology Date/Time Source Procedure Growth Status 03/08/25 12:54 Voided Urine Urine Culture - Final Escherichia coli Complete 03/07/25 22:05 Blood Blood Culture - Final NO GROWTH AFTER 5 DAYS OF INCUBATION. Complete 03/07/25 18:40 Nose MRSA Screen - Final Complete Assessment/Plan Assessment/Plan Impression: Acute hypoxic respiratory failure Pancytopenia Obesity, BMI 36.4 Shock Renal failure Events: Improved O2 requirements (tapered off 3 LPM NC) Remains on room air. No distress Off pressors, hemodynamically stable. Hemodialysis per Nephrology Nephrology recs appreciated Continue diuresis with Lasix Monitor renal function Monitor electrolytes. Supplement as necessary. Magnesium supplementation. Continue bronchodilators/albuterol HFA Continue steroids Continue antibiotics WBC trended up to 14.4 K Incentive spirometry Pain control Avoid oversedation Monitor ammonia level, on lactulose. Protonix for GI ppx Hemoglobin stable at 8.7 g/dL Continue to monitor hemoglobin closely Iron supplementation HOB elevation Aspiration precautions Patient is stable for discharge from the pulmonary standpoint Labs and imaging reviewed. Rest of plan as noted below. Plan: Supplemental oxygen PRN Titrate to keep O2 sats above 92%. Pressors as necessary for hemodynamic support Titrate to keep mean arterial pressure greater than 65 mmHg. Bronchodilators. Antibiotics IV steroids Accu-Cheks, ISS PRN. Hemodialysis per Nephrology F/u Nephrology recommendations Monitor renal function. Monitor electrolytes. Supplement as necessary. Monitor ins and outs. Obesity complicates all care GI/DVT prophylaxis. Prognosis: Poor given patient's multiple co-morbidities. Rest of plan per hospitalist and other consultants. Thank you, TYLER Maloney, for allowing me to participate in this patient's care. Further recommendations will depend on the patient's clinical course. Please do not hesitate to contact me if you have any questions or concerns. This medical document was created using an electronic medical record system with [employer] dictation system. Although these documentations are being carefully reviewed, there may still be some phonetic and typographical changes. The errors are purely typographical, due to imperfection on the software program, and do not reflect any compromise in the patient's medical care. Plan discussed with: Patient, Other (ALEJO Paul) Visit Coding Pulmonary Billing Provider: CHERYL MILLER MD Date of Service if different f: Mar 14, 2025 Common Visit Codes: [id number] INP/OBS CARE(HIGH) CHERYL MILLER MD Mar 14, 2025 22:46
== END 2025-03-14 20:10 | disposition home or self-care (01) | DRG 720 ==
LOC: ER 21:15 → OVERFLOW 23:57 → WEST WING 03-05 22:11 → ICU WEST 03-07 18:15 → TELE-WESTW 03-12 16:15
PROVIDERS: ADMIT Nurse Practitioner Acute Care; ATTEND Nurse Practitioner Acute Care
PROC: 02HV33Z Insertion of Infusion Device into Superior Vena Cava, Percutaneous Approach (ICD-10-PCS; principal; 2025-03-08)
PROC: B548ZZA Ultrasonography of Superior Vena Cava, Guidance (ICD-10-PCS; 2025-03-08)
PROC: 5A1D70Z Performance of Urinary Filtration, Intermittent, Less than 6 Hours Per Day (ICD-10-PCS; 2025-03-08)
PROC: 5A1D70Z Performance of Urinary Filtration, Intermittent, Less than 6 Hours Per Day (ICD-10-PCS; 2025-03-09)
PROC: 30233N1 Transfusion of Nonautologous Red Blood Cells into Peripheral Vein, Percutaneous Approach (ICD-10-PCS; 2025-03-10)
DX: A41.9 Sepsis, unspecified organism (principal); K76.7 Hepatorenal syndrome; R65.21 Severe sepsis with septic shock; N17.0 Acute kidney failure with tubular necrosis; J96.01 Acute respiratory failure with hypoxia; I31.39 Other pericardial effusion (noninflammatory); I50.33 Acute on chronic diastolic (congestive) heart failure; E87.20 Acidosis, unspecified; K76.6 Portal hypertension; D61.818 Other pancytopenia; Z99.2 Dependence on renal dialysis; D68.9 Coagulation defect, unspecified; N30.90 Cystitis, unspecified without hematuria; K76.82 Hepatic encephalopathy; E66.9 Obesity, unspecified; E03.9 Hypothyroidism, unspecified; J45.909 Unspecified asthma, uncomplicated; I36.1 Nonrheumatic tricuspid (valve) insufficiency; K70.31 Alcoholic cirrhosis of liver with ascites; E87.1 Hypo-osmolality and hyponatremia; E87.6 Hypokalemia; E80.6 Other disorders of bilirubin metabolism; E78.5 Hyperlipidemia, unspecified; E55.9 Vitamin D deficiency, unspecified; E87.5 Hyperkalemia; Z20.822 Contact with and (suspected) exposure to COVID-19; Z99.81 Dependence on supplemental oxygen; Z68.36 Body mass index [BMI] 36.0-36.9, adult; Z79.899 Other long term (current) drug therapy
CPT/HCPCS: 36415; 36556; 36600; 71045; 74176; 76705; 76937; 78582; 80048; 80053; 80061; 80074; 80202; 80307; 80320; 80329; 81001; 82140; 82306; 82570; 82607; 82728; 82805; 82962; 83036; 83540; 83550; 83605; 83735; 83880; 84100; 84156; 84300; 84439; 84443; 84480; 84484; 84702; 85007; 85014; 85018; 85025; 85027; 85379; 85610; 85652; 85730; 86141; 86803; 86850; 86900; 86901; 86920; 87040; 87081; 87086; 87088; 87186; 87340; 87426; 87804; 90935; 93005; 93306; 93970; 94640; 97163; G0378; J1642; J1756; J1815; J1885; J2185; J2248; J2405; J2470; J3430; J3480; J3490; P9047